=== PATIENT | female | born 2000 | race Caucasian/White ===

== ENCOUNTER 2022-12-13 19:50 | Emergency (ER) | payer MEDICAID, SELFPAY ==
[2022-12-13 20:02] VITALS: BP 140/85; PULSE 105; RESP 18; TEMP 36.8; O2SAT 100; BMI 32.1
--- NOTE | 2022-12-13 20:21 | ED_ITS ---
Documented by User: MISHA Regalado 12/13/22 22:12 HPI - Abdominal Pain General Chief Complaint: Abdominal Pain Stated Complaint: Abdominal Pain Time Seen by Provider: 12/13/22 20:04 Source: patient Mode of arrival: walk-in Limitations: no limitations History of Present Illness HPI narrative: patient is a 22-year-old female to history of irritable bowel syndrome and PCOS who presents to the Emergency Room for left-sided pelvic pain that began today. She states that she is due to start her menstrual period, she has not had any bleeding today. She has had no fevers, vomiting. No urinary symptoms. No flank or back pain. Related Data Home Medications Medication Instructions Recorded Confirmed drospirenone 3 mg-ethinyl tab 12/13/22 estradiol 0.03 mg tablet (Katie) metformin 500 mg tablet,extended mg PO 12/13/22 release 24 hr Allergies Allergy/AdvReac Type Severity Reaction Status Date / Time No Known Drug Allergies Allergy Verified 12/13/22 20:12 Review of Systems ROS Constitutional Denies: fever or chills Cardiovascular Denies: chest pain Respiratory Denies: shortness of breath or cough Gastrointestinal Reports: abdominal pain; Denies: nausea or vomiting Genitourinary Denies: painful urination Musculoskeletal Denies: back pain Integumentary/Breast Denies: rash Endocrine Denies: excessive urination [facility]END[facility] S[facility] TO [facility] Social History Smoking status: Current some day smoker Exam Narrative Exam Narrative: Gen.: Awake, alert, in no distress Head: Normocephalic, atraumatic ENT: Moist mucous membranes Respiratory: No respiratory distress, lungs clear bilaterally Cardio: Regular rate and rhythm Gastrointestinal: Abdomen is soft, nondistended and nontender to palpation; no pain out of proportion on exam Extremities: Moves extremities equally Psych: Normal mood and affect Neuro: No focal neuro deficit Skin: Warm, dry, intact Constitutional Vital Signs, click to edit/add: Last Vital Signs Temp 98.3 F 12/13/22 20:02 Pulse 105 H 12/13/22 20:02 Resp 18 12/13/22 20:02 BP 140/85 12/13/22 20:02 Pulse Ox 100 12/13/22 20:02 O2 Del Method Room Air 12/13/22 20:02 Course Vital Signs Vital signs: Vital Signs Temperature 98.3 F 12/13/22 20:02 Pulse Rate 105 H 12/13/22 20:02 Respiratory Rate 18 12/13/22 20:02 Blood Pressure 140/85 12/13/22 20:02 Pulse Oximetry 100 12/13/22 20:02 Oxygen Delivery Method Room Air 12/13/22 20:02 Temperature 98.3 F 12/13/22 20:02 Pulse Rate 105 H 12/13/22 20:02 Respiratory Rate 18 12/13/22 20:02 Blood Pressure 140/85 12/13/22 20:02 Pulse Oximetry 100 12/13/22 20:02 Oxygen Delivery Method Room Air 12/13/22 20:02 MDM - Abdominal Pain MDM Narrative Medical decision making narrative: patient treated with IV fluids, Toradol, Zofran. Lab studies obtained showing no evidence of significant abnormalities, patient with a small amount of bilirubin in her urine. Ultrasound is unavailable, the patient was sent for CT of the abdomen and pelvis she states this pain is different than her typical PCOS pain. 2200: CT scan results are pending in case is turned over to attending physician for disposition. Medical Records Attestation: I reviewed the patient's medical records. Lab Data Attestation: I reviewed the patient's lab results. Labs: Lab Results 12/13/22 12/13/22 Range/Units 20:20 20:25 WBC 7.9 (4.0-11.0) 10^3/uL RBC 4.74 (4.20-5.40) 10^6/uL Hgb 10.9 L (12.0-16.0) g/dL Hct 35.3 L (36.0-48.0) % MCV 74.5 L (81.0-99.0) fL MCH 23.0 L (26.7-34.0) pg MCHC 30.9 (29.9-35.2) g/dL RDW 16.0 H (11.0-15.0) % Plt Count 200 (150-450) 10^3/uL MPV 11.5 (9.5-13.5) fL Neut % (Auto) 55.9 (43.0-75.0) % Lymph % (Auto) 36.8 (20.5-60.0) % Clare % (Auto) 5.1 (1.7-12.0) % Eos % (Auto) 1.4 (0.9-7.0) % Baso % (Auto) 0.5 (0.2-2.0) % Neut # (Auto) 4.4 (1.4-6.5) 10^3/uL Lymph # (Auto) 2.9 (1.2-3.8) 10^3/uL Clare # (Auto) 0.4 (0.3-0.8) 10^3/uL Eos # (Auto) 0.1 (0.0-0.7) 10^3/uL Baso # (Auto) 0.0 (0.0-0.1) 10^3/uL Abs Immat Gran (auto) 0.02 (0.00-0.03) 10^3/uL Imm/Tot Granulo (auto) 0.3 (0.0-0.5) % Sodium 137 (136-145) mmol/L Potassium 3.3 L (3.5-5.1) mmol/L Chloride 101 (98-107) mmol/L Carbon Dioxide 26.3 (21.0-32.0) mmol/L Anion Gap 13.0 BUN 8.0 (7.0-18.0) mg/dL Creatinine 0.78 (0.55-1.02) mg/dL Est GFR ( Amer) >60 (>=60) Est GFR (Non-Af Amer) >60 (>=60) BUN/Creatinine Ratio 10.3 Glucose 106 (74-106) mg/dL Lactate 1.2 (0.4-2.0) mmol/L Calcium 8.8 (8.5-10.1) mg/dL Total Bilirubin 0.2 (0.2-1.0) mg/dL AST 10 L (15-37) U/L ALT 14 (14-59) U/L Alkaline Phosphatase 63 (46-116) U/L Total Protein 7.3 (6.4-8.2) g/dL Albumin 3.4 (3.4-5.0) g/dL Globulin 3.9 g/dL Albumin/Globulin Ratio 0.9 Lipase 28.0 (16.0-77.0) U/L Serum HCG, Qual Negative (NEGATIVE) Urine Color Yellow (YELLOW) Urine Clarity Clear (CLEAR) Urine pH 6.0 (5.0-9.0) Ur Specific [place] >=1.030 A (1.005-1.025) Urine Protein Negative (NEG/TRACE) mg/dL Urine Glucose (UA) Negative (NEGATIVE) mg/dL Urine Ketones Trace A (NEGATIVE) mg/dL Urine Occult Blood Negative (NEGATIVE) Urine Nitrite Negative (NEGATIVE) Urine Bilirubin Small A (NEGATIVE) Urine Urobilinogen 1.0 (0.2-1.0) EU/dL Ur Leukocyte Esterase Negative (NEGATIVE) Imaging Data CT scan - abdomen: Attestation: I have reviewed the pertinent imaging results. Discharge Plan Discharge Chief Complaint: Abdominal Pain Clinical Impression: Abdominal pain, Constipation Patient Disposition: Home, Self-Care Time of Disposition Decision: 22:57 Prescriptions / Home Meds: No Action metformin 500 mg tablet extended release 24 hr PO drospirenone-ethinyl estradiol [Katie] 3-0.03 mg tablet Instructions: Constipation (ED), Abdominal Pain (ED) Stand Alone Forms: Portal Instructions Referrals: LA NENA MOSELEY [Primary Care Provider] - 1 week Documented by User: Alberto Biswas 12/13/22 22:57 HPI - Abdominal Pain General Chief Complaint: Abdominal Pain Stated Complaint: Abdominal Pain Time Seen by Provider: 12/13/22 20:04 Related Data Home Medications Medication Instructions Recorded Confirmed drospirenone 3 mg-ethinyl tab 12/13/22 estradiol 0.03 mg tablet (Katie) metformin 500 mg tablet,extended mg PO 12/13/22 release 24 hr Allergies Allergy/AdvReac Type Severity Reaction Status Date / Time No Known Drug Allergies Allergy Verified 12/13/22 20:12 PFSH PFSH Social History Smoking status: Current some day smoker Exam Constitutional Vital Signs, click to edit/add: Last Vital Signs Temp 98.3 F 12/13/22 20:02 Pulse 105 H 12/13/22 20:02 Resp 18 12/13/22 20:02 BP 140/85 12/13/22 20:02 Pulse Ox 100 12/13/22 20:02 O2 Del Method Room Air 12/13/22 20:02 Course Vital Signs Vital signs: Vital Signs Temperature 98.3 F 12/13/22 20:02 Pulse Rate 105 H 12/13/22 20:02 Respiratory Rate 18 12/13/22 20:02 Blood Pressure 140/85 12/13/22 20:02 Pulse Oximetry 100 12/13/22 20:02 Oxygen Delivery Method Room Air 12/13/22 20:02 Temperature 98.3 F 12/13/22 20:02 Pulse Rate 105 H 12/13/22 20:02 Respiratory Rate 18 12/13/22 20:02 Blood Pressure 140/85 12/13/22 20:02 Pulse Oximetry 100 12/13/22 20:02 Oxygen Delivery Method Room Air 12/13/22 20:02 MDM - Abdominal Pain MDM Narrative Medical decision making narrative: patient treated with IV fluids, Toradol, Zofran. Lab studies obtained showing no evidence of significant abnormalities, patient with a small amount of bilirubin in her urine. Ultrasound is unavailable, the patient was sent for CT of the abdomen and pelvis she states this pain is different than her typical PCOS pain. 2200: CT scan results are pending in case is turned over to attending physician for disposition. CT shows retained stool but no other findings to account for the patient's symptoms, per radiologist. Patient and family informed of results, diagnosis discuss and they were given reassurance. Lab Data Labs: Lab Results 12/13/22 12/13/22 Range/Units 20:20 20:25 WBC 7.9 (4.0-11.0) 10^3/uL RBC 4.74 (4.20-5.40) 10^6/uL Hgb 10.9 L (12.0-16.0) g/dL Hct 35.3 L (36.0-48.0) % MCV 74.5 L (81.0-99.0) fL MCH 23.0 L (26.7-34.0) pg MCHC 30.9 (29.9-35.2) g/dL RDW 16.0 H (11.0-15.0) % Plt Count 200 (150-450) 10^3/uL MPV 11.5 (9.5-13.5) fL Neut % (Auto) 55.9 (43.0-75.0) % Lymph % (Auto) 36.8 (20.5-60.0) % Clare % (Auto) 5.1 (1.7-12.0) % Eos % (Auto) 1.4 (0.9-7.0) % Baso % (Auto) 0.5 (0.2-2.0) % Neut # (Auto) 4.4 (1.4-6.5) 10^3/uL Lymph # (Auto) 2.9 (1.2-3.8) 10^3/uL Clare # (Auto) 0.4 (0.3-0.8) 10^3/uL Eos # (Auto) 0.1 (0.0-0.7) 10^3/uL Baso # (Auto) 0.0 (0.0-0.1) 10^3/uL Abs Immat Gran (auto) 0.02 (0.00-0.03) 10^3/uL Imm/Tot Granulo (auto) 0.3 (0.0-0.5) % Sodium 137 (136-145) mmol/L Potassium 3.3 L (3.5-5.1) mmol/L Chloride 101 (98-107) mmol/L Carbon Dioxide 26.3 (21.0-32.0) mmol/L Anion Gap 13.0 BUN 8.0 (7.0-18.0) mg/dL Creatinine 0.78 (0.55-1.02) mg/dL Est GFR ( Amer) >60 (>=60) Est GFR (Non-Af Amer) >60 (>=60) BUN/Creatinine Ratio 10.3 Glucose 106 (74-106) mg/dL Lactate 1.2 (0.4-2.0) mmol/L Calcium 8.8 (8.5-10.1) mg/dL Total Bilirubin 0.2 (0.2-1.0) mg/dL AST 10 L (15-37) U/L ALT 14 (14-59) U/L Alkaline Phosphatase 63 (46-116) U/L Total Protein 7.3 (6.4-8.2) g/dL Albumin 3.4 (3.4-5.0) g/dL Globulin 3.9 g/dL Albumin/Globulin Ratio 0.9 Lipase 28.0 (16.0-77.0) U/L Serum HCG, Qual Negative (NEGATIVE) Urine Color Yellow (YELLOW) Urine Clarity Clear (CLEAR) Urine pH 6.0 (5.0-9.0) Ur Specific [place] >=1.030 A (1.005-1.025) Urine Protein Negative (NEG/TRACE) mg/dL Urine Glucose (UA) Negative (NEGATIVE) mg/dL Urine Ketones Trace A (NEGATIVE) mg/dL Urine Occult Blood Negative (NEGATIVE) Urine Nitrite Negative (NEGATIVE) Urine Bilirubin Small A (NEGATIVE) Urine Urobilinogen 1.0 (0.2-1.0) EU/dL Ur Leukocyte Esterase Negative (NEGATIVE) Imaging Data CT scan - abdomen: Radiologist's impression: Patient Name: HALLE MARTINS MRN: [facility]:[id number] date: 2000 Sex: F Assigned Patient Location: ER Current Patient Location: ED.MAIN Accession/Order Number: [id number] Exam Date: 12/13/2022 21:37 Report Date: 12/13/2022 22:10 At the request of: FRANDY YAN Procedure: CT abdomen pelvis w con EXAMINATION: CT ABDOMEN AND PELVIS WITH IV CONTRAST CLINICAL HISTORY: Abdominal pain TECHNIQUE: CT of the abdomen and pelvis was performed using standard technique, scanning from just above the dome of the diaphragm to the symphysis pubis. All CT scans at this facility use dose modulation, iterative reconstruction, and/or weight based dosing when appropriate to reduce radiation dose to as low as reasonably achievable. Contrast: IV: 100 ml of Omnipaque 300 COMPARISON: CT abdomen and pelvis 06/03/2020 RESULT: Liver: No mass. Biliary: No bile duct dilation. Gallbladder is unremarkable. Spleen: No mass. No splenomegaly. Pancreas: No mass or duct dilation. Adrenals: No mass. Kidneys: No mass, calculus or hydronephrosis. GI tract: No dilation or wall thickening. Moderate colonic stool. Appendix is unremarkable. Lymph nodes: No abdominal or pelvic lymphadenopathy. Mesentery/Peritoneum: No ascites or mass. Retroperitoneum: No mass. Vasculature: The celiac axis and SMA are patent. The portal vein and branches, splenic vein, SMV, and hepatic veins are patent. No abdominal aortic aneurysm. Pelvis: No mass, ascites or fluid collection. Urinary bladder is unremarkable. Bones/Soft Tissues: No significant finding. Lower thorax: Unremarkable. IMPRESSION: No acute findings in the abdomen and pelvis. Moderate colonic stool. Electronically authenticated by: MICHAEL CHATTERJEE Date: 12/13/2022 22:10 Discharge Plan Discharge Chief Complaint: Abdominal Pain Clinical Impression: Abdominal pain, Constipation Patient Disposition: Home, Self-Care Time of Disposition Decision: 22:57 Prescriptions / Home Meds: No Action metformin 500 mg tablet extended release 24 hr PO drospirenone-ethinyl estradiol [Katie] 3-0.03 mg tablet Instructions: Constipation (ED), Abdominal Pain (ED) Stand Alone Forms: Portal Instructions Referrals: LA NENA MOSELEY [Primary Care Provider] - 1 week
[2022-12-13 20:51] LABS: Basophils Percent Auto 0.5 % (0.2-2.0); Eosinophils Absolute Auto 0.1 10^3/uL (0.0-0.7); Eosinophils Percent Auto 1.4 % (0.9-7.0); Hematocrit 35.3 % (36.0-48.0); Hemoglobin 10.9 g/dL (12.0-16.0); Immature Granulocytes Abs Auto 0.02 10^3/uL (0.00-0.03); Immature Granulocytes Pct Auto 0.3 % (0.0-0.5); Lymphocytes Absolute Auto 2.9 10^3/uL (1.2-3.8); Lymphocytes Percent Auto 36.8 % (20.5-60.0); Mean Corpuscular HGB Conc 30.9 g/dL (29.9-35.2); Mean Corpuscular Volume 74.5 fL (81.0-99.0); Mean Platelet Volume 11.5 fL (9.5-13.5); Monocytes Absolute Auto 0.4 10^3/uL (0.3-0.8); Monocytes Percent Auto 5.1 % (1.7-12.0); Neutrophils Absolute Auto 4.4 10^3/uL (1.4-6.5); Neutrophils Percent Auto 55.9 % (43.0-75.0); Platelet Count 200 10^3/uL (150-450); Red Blood Count 4.74 10^6/uL (4.20-5.40); White Blood Count 7.9 10^3/uL (4.0-11.0)
[2022-12-13 20:54] LABS: HCG Qualitative NEGATIVE (NEGATIVE)
[2022-12-13 20:56] LABS: Alanine Aminotransferase 14 U/L (14-59); Albumin Globulin Ratio 0.9; Albumin Level 3.4 g/dL (3.4-5.0); Alkaline Phosphatase 63 U/L (46-116); Aspartate Amino Transferase 10 U/L (15-37); BUN Creatinine Ratio 10.3; Bilirubin Total 0.2 mg/dL (0.2-1.0); Calcium 8.8 mg/dL (8.5-10.1); Carbon Dioxide 26.3 mmol/L (21.0-32.0); Chloride 101 mmol/L (98-107); Estimated GFR (African America >60 (>=60); Estimated GFR (Non-African Ame >60 (>=60); Globulin 3.9 g/dL; Glucose 106 mg/dL (74-106); Potassium 3.3 mmol/L (3.5-5.1); Sodium 137 mmol/L (136-145); Total Protein 7.3 g/dL (6.4-8.2)
[2022-12-13 20:58] LABS: Lactate/Lactic Acid 1.2 mmol/L (0.4-2.0)
[2022-12-13 20:58] LABS: Bilirubin Urine SMALL (NEGATIVE); Blood Urine NEGATIVE (NEGATIVE); Clarity Urine CLEAR (CLEAR); Color Urine YELLOW (YELLOW); Glucose Urine UA NEGATIVE (NEGATIVE); Ketones Urine TRACE mg/dL (NEGATIVE); Leukocyte Esterase Urine NEGATIVE (NEGATIVE); Nitrite Urine NEGATIVE (NEGATIVE); Protein Urine NEGATIVE (NEG/TRACE); Specific Gravity Urine >=1.030 (1.005-1.025)
[2022-12-13 21:00] LABS: Urine Microscopic Indicated NO
[2022-12-13] MEDS: 0.9 % SODIUM CHLORIDE 1,000 ML 999 ML IV (21:53)
[2022-12-13] MEDS: KETOROLAC TROMETHAMINE 30 MG/ML VIAL IVP (21:53)
[2022-12-13] MEDS: ONDANSETRON PF 4 MG/2 ML VIAL IV (21:53)
== END 2022-12-13 23:41 | disposition home or self-care (01) ==
PROVIDERS: Physician Assistant; Emergency Provider Emergency Medicine; PCP Family Medicine
DX: R10.9 Unspecified abdominal pain (principal); K59.00 Constipation, unspecified; K58.9 Irritable bowel syndrome, unspecified; E28.2 Polycystic ovarian syndrome; Z79.899 Other long term (current) drug therapy; Z79.84 Long term (current) use of oral hypoglycemic drugs; F17.210 Nicotine dependence, cigarettes, uncomplicated
CPT/HCPCS: 36415; 74177; 80053; 81003; 83605; 83690; 84703; 85025; 96374; 96375; 99285; Q9967

== ENCOUNTER 2023-02-01 22:32 | Emergency (ER) | payer MEDICAID, SELFPAY ==
[2023-02-01 22:36] VITALS: BP 145/94; PULSE 87; RESP 16; TEMP 36.7; O2SAT 99; BMI 31.2
--- NOTE | 2023-02-01 23:11 | ED.EAR1 ---
HPI - Ear Problem General Chief complaint: Ear Stated complaint: Bilateral Ear Pain Time Seen by Provider: 02/01/23 22:43 Source: patient Mode of arrival: walk-in Limitations: no limitations History of Present Illness HPI Narrative: bilateral ear pain since 01/27/23. Took aleve a ferw times for the pain, which is now in both ears. Mild sore throat. No fever or cough. Related Data Home Medications Medication Instructions Recorded Confirmed drospirenone 3 mg-ethinyl 1 tab PO DAILY 12/13/22 02/01/23 estradiol 0.03 mg tablet (Katie) metformin 500 mg tablet,extended 500 mg PO DAILY 12/13/22 02/01/23 release 24 hr Previous Rx's Medication Instructions Recorded amoxicillin 875 mg-potassium 1 tab PO Q12H #14 tabs 02/01/23 clavulanate 125 mg tablet Allergies Allergy/AdvReac Type Severity Reaction Status Date / Time No Known Drug Allergies Allergy Verified 02/01/23 22:38 PFSH PFS Social History Smoking status: Current every day smoker Exam Narrative Exam Narrative: Nurses notes and vital signs reviewed and patient is not hypoxic. afebrile General: Well-appearing and in no apparent distress. Skin: Warm, dry, no pallor noted. No rash. Head: Normocephalic, atraumatic. Neck: Supple, non-tender. No cervical lymphadenopathy Eye: Pupils are equal, round and EOMI. No scleral icterus. Ears, Nose, Mouth, and Throat: TM erythematous with injection bilaterally, no nasal mucosal hypertrophy. Oral mucosa is moist, no posterior oropharynx erythema, uvula is mid-line Cardiovascular: Regular Rate and Rhythm without murmur, gallop or rub. Respiratory: No accessory muscle use or respiratory distress. Lungs are clear to auscultation, no wheezing, rales or rhonchi Neurological: A&O x4. No cranial nerve dysfunction observed. No truncal ataxia. Moves all extremities. Sensation intact. Psychiatric: Cooperative and interactive. Normal mood and affect. Constitutional Vital Signs, click to edit/add: Last Vital Signs Temp 98.0 F 02/01/23 22:36 Pulse 87 02/01/23 22:36 Resp 16 02/01/23 22:36 BP 145/94 H 02/01/23 22:36 Pulse Ox 99 02/01/23 22:36 O2 Del Method Room Air 02/01/23 22:36 Course Vital Signs Vital signs: Vital Signs Temperature 98.0 F 02/01/23 22:36 Pulse Rate 87 02/01/23 22:36 Respiratory Rate 16 02/01/23 22:36 Blood Pressure 145/94 H 02/01/23 22:36 Pulse Oximetry 99 02/01/23 22:36 Oxygen Delivery Method Room Air 02/01/23 22:36 Temperature 98.0 F 02/01/23 22:36 Pulse Rate 87 02/01/23 22:36 Respiratory Rate 16 02/01/23 22:36 Blood Pressure 145/94 H 02/01/23 22:36 Pulse Oximetry 99 02/01/23 22:36 Oxygen Delivery Method Room Air 02/01/23 22:36 Medical Decision Making MDM Narrative Medical decision making narrative: patient dc'd home with prescription for antibiotic for her otitis media and recommendation to take otc pain meds for relief. Discharge Plan Discharge Chief Complaint: Ear Clinical Impression: Otitis media Patient Disposition: Home, Self-Care Time of Disposition Decision: 23:19 Prescriptions / Home Meds: New amoxicillin-pot clavulanate 875-125 mg tablet 1 tab PO Q12H Qty: 14 0RF No Action metformin 500 mg tablet extended release 24 hr 500 mg PO DAILY drospirenone-ethinyl estradiol [Katie] 3-0.03 mg tablet 1 tab PO DAILY Instructions: Ear Infection (ED) Stand Alone Forms: Portal Instructions Referrals: LA NENA MOSELEY [Primary Care Provider] - 1 week
== END 2023-02-01 23:32 | disposition home or self-care (01) ==
PROVIDERS: Emergency Provider Emergency Medicine; PCP Family Medicine
DX: H66.93 Otitis media, unspecified, bilateral (principal); Z79.899 Other long term (current) drug therapy; Z79.84 Long term (current) use of oral hypoglycemic drugs; F17.210 Nicotine dependence, cigarettes, uncomplicated
CPT/HCPCS: 99283

== ENCOUNTER 2023-05-31 21:43 | Emergency (ER) | payer MEDICAID, SELFPAY ==
--- OUTSIDE RECORDS SUMMARY | 2023-05-31 22:08 | XMS_ITS | CCD ---
Author Organization [facility] Care Team Providers Care Pta Name Role Phone KARON, DR BRODY Penaloza Admitting Unavailable KARON, DR BRODY Penaloza Consulting Unavailable KARON, DR BRODY Penaloza Attending Unavailable LORELEI, DR DEUTSCH Primary Care Unavailable DARYA ., DR WATT Admitting Unavailable DARYA ., DR WATT Attending [facility] Yesy Lopez Consulting Unavailable LORELEI, DR DEUTSCH Primary Care Unavailable DARYA ., DR WATT Consulting Unavailable Erwin Rhea Unavailable SHUKRI LACKEY Attending Unavailable Medications Current Medications Medication Drug Class(es) Dates Sig (Normalized) Sig (Original) hydrocortisone 10 mg/ml / neomycin 3.5 mg/ml / polymyxin b 03711 unt/ml otic solution (1 source) Aminoglycoside Antibacterial, Polymyxin-class Antibacterial, Corticosteroid Start: 03-20-2022 Neomycin-Polymyx in-HC 3.5-14970-8 4 drops into affected ear Otic Three times a day for 7 day(s) Feb, Active Completed/Discontinued Medications Medication Drug Class(es) Dates Sig (Normalized) Sig (Original) amoxicillin 875 mg oral tablet (1 source) Penicillin-class Antibacterial Start: 03-02-19 21 take 1 tablet by mouth every twelve hours Amoxicillin 875 MG 1 tablet Orally every 12 hrs for 7 days Feb, Not-Taking benzocaine 15 mg / menthol 2.6 mg oral lozenge (1 source) Standardized Chemical Allergen Start: 03-02-19 21 Cepacol Extra Strength 15-2.6 MG as directed Mouth/Throat every 4 hours Feb, Not-Taking carbamide peroxide 65 mg/ml otic solution (1 source) Start: 04-09-19 20 Debrox 6.5 % 2 drops into affected ear Otic once a week Mar, Not-Taking medroxyPROGESTERone (2 sources) Progestin medroxyPROGESTER one Acetate 150 MG/ML Intramuscular for 84 Not-Taking Depo-Provera Not -Taking naproxen 500 mg oral tablet (1 source) Nonsteroidal Anti-inflammatory Drug Start: 10-25-2020 take 1 tablet by mouth every twelve hours at mealtime as needed Naproxen 500 MG 1 tablet with food or milk as needed Orally every 12 hrs for 10 days Sep, Not-Taking Problems Problem Classification Problem Date Documented Da te Episodic/Chronic Nausea and vomiting (4 sources) Nausea with vomiting, unspecified; Translations: [NAUSEA WITH VOMITING UNSPECIFIED] Onset: 04-22-2022 Episodic Other aftercare (1 source) 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; Translations: [SUPPORT DBA USE ORAL HYPOGLYCEMIC DX] Onset: 04-25-2022 Episodic Other aftercare (1 source) correction (current) use of hormonal contraceptives; Translations: [CUSTODIAL HORMONAL CONTRACEPTIVES] Onset: 04-25-2022 Episodic Other ear and sense organ disorders (1 source) Impacted cerumen, left ear Episodic Other endocrine disorders (4 sources) Polycystic ovarian syndrome; Translations: [POLYCYSTIC OVARIAN SYNDROME] Onset: 06-01-2021 Chronic Other gastrointestinal disorders (1 source) Irritable bowel syndrome without diarrhea; Translations: [IRRITABLE BOWEL SYND W/O DIARRHEA] Onset: 04-25-2022 Chronic Substance-related disorders (1 source) Nicotine dependence, cigarettes, uncomplicated; Translations: [NICOTINE DEPEND CIGARETTES UNCOMP] Onset: 04-25-2022 Chronic Results Test Name Value Interpretation Reference Range Facil ity AMYLASEon 04-22-2022 Amylase [Catalytic activity/Vol] 34 U/L Normal 25-115 [facility] Comment on above: Performed By: #### A MY, LIPA #### [facility] [address] [address] [address] Estephania Funez CBC AUTO DIFFon 04-22-2022 BASO # 0.0 103/ul Normal 0.0-0.1 [facility] Comment on above: Performed By: #### C BC #### [facility] [address] [address] [address] Estephania Funez Basophils/100 WBC (Bld) 0.3 % Normal 0.2-2.0 [facility] Comment on above: Performed By: #### C BC #### [facility] [address] [place] [address] Dr. Estephania Funez EO # 0.1 103/ul Normal 0.0-0.7 [facility] Comment on above: Performed By: #### C BC #### [facility] [address] [place] [address] Dr. Estephania Funez Eosinophils/100 WBC (Bld) 0.7 % Critically low 0.9-7.0 [facility] Comment on above: Performed By: #### C BC #### [facility] [address] [place] [address] Dr. Estephania Funez Erythrocyte distribution width (RBC) [Ratio] 16.0 % Critically high 11.0-15.0 [facility] Comment on above: Performed By: #### C BC #### [facility] [address] [place] [address] Dr. Estephania Funez Hematocrit (Bld) [Volume fraction] 35.5 % Critically low 36.0-48.0 [facility] Comment on above: Performed By: #### C BC #### [facility] [address] [place] [address] Dr. Estephania Funez Hemoglobin (Bld) [Mass/Vol] 11.1 g/dL Critically low 12.0-16.0 [facility] Comment on above: Performed By: #### C BC #### [facility] [address] [place] [address] Dr. Estephania Funez IG # 0.01 10e3/ul Normal 0.00-0.03 [facility] Comment on above: Performed By: #### C BC #### [facility] [address] [place] [address] Dr. Estephania Funez IG % 0.1 % Normal 0.0-0.5 [facility] Comment on above: Performed By: #### C BC #### [facility] [address] [place] [address] Dr. Estephania Funez LYMPH # 1.7 103/ul Normal 1.2-3.8 [facility] Comment on above: Performed By: #### C BC #### [facility] [address] [address] [address] Estephania Funez Lymphocytes/100 WBC (Bld) 23.9 % Normal 20.5-60.0 [facility] Comment on above: Performed By: #### C BC #### [facility] [address] [place] [address] Dr. Estephania Funez MANUAL DIFF REQ NO Normal [facility] Comment on above: Performed By: #### C BC #### [facility] [address] [address] [address] Estephania Funez MCH (RBC) [Entitic mass] 22.3 pg Critically low 26.7-34.0 [facility] Comment on above: Performed By: #### C BC #### [facility] [address] [place] [address] Dr. Estephania Funez MCHC (RBC) [Mass/Vol] 31.3 g/dL Normal 29.9-35.2 [facility] Comment on above: Performed By: #### C BC #### [facility] [address] [place] [address] Dr. Estephania Funez MCV (RBC) [Entitic vol] 71.4 fL Critically low 81.0-99.0 [facility] Comment on above: Performed By: #### C BC #### [facility] [address] [place] [address] Dr. Estephania Funez MONO # 0.4 103/ul Normal 0.3-0.8 [facility] Comment on above: Performed By: #### C BC #### [facility] [address] [place] [address] Dr. Estephania Funez Monocytes/100 WBC (Bld) 6.2 % Normal 1.7-12.0 [facility] Comment on above: Performed By: #### C BC #### [facility] [address] [place] [address] Dr. Estephania Funez NEUT # 4.9 103/ul Normal 1.4-6.5 [facility] Comment on above: Performed By: #### C BC #### [facility] [address] [place] [address] Dr. Estephania Funez Neutrophils/100 WBC (Bld) 68.8 % Normal 43.0-75.0 [facility] Comment on above: Performed By: #### C BC #### [facility] [address] [place] [address] Dr. Estephania Funez Platelet mean volume (Bld) [Entitic vol] 11.9 fL Normal 9.5-13.5 [facility] Comment on above: Performed By: #### C BC #### [facility] [address] [place] [address] Dr. Estephania Funez PLT 228 103/ul Normal 150-450 [facility] Comment on above: Performed By: #### C BC #### [facility] [address] [place] [address] Dr. Estephania Funez RBC 4.97 106/ul Normal 4.20-5.40 [facility] Comment on above: Performed By: #### C BC #### [facility] [address] [place] [address] Dr. Estephania Funez WBC 7.1 103/ul Normal 4.0-11.0 [facility] Comment on above: Performed By: #### C BC #### [facility] [address] [place] [address] Dr. Estephania Funez ER URINE PROFILEon 3 Bilirubin Ql (U) Negative Normal NEGATIVE [facility] Comment on above: Performed By: #### E RUR, PREGU #### [facility] [address] [place] [address] Dr. Estephania Funez Clarity (U) CLEAR Normal CLEAR [facility] Comment on above: Performed By: #### E RUR, PREGU #### [facility] [address] [place] [address] Dr. Estephania Funez Color (U) YELLOW Normal YELLOW [facility] Comment on above: Performed By: #### E RUR, PREGU #### [facility] [address] [place] [address] Dr. Estephania YEBOAH A micrscopic examination will be performed if indicated. Normal [facility] Comment on above: Performed By: #### E RUR, PREGU #### [facility] [address] [place] [address] Dr. Estephania Funez Glucose Ql (U) Negative Normal NEGATIVE [facility] Comment on above: Performed By: #### E RUR, PREGU #### [facility] [address] [place] [address] Dr. Estephania Funez Hemoglobin Ql (U) Negative Normal NEGATIVE [facility] Comment on above: Performed By: #### E RUR, PREGU #### [facility] [address] [place] [address] Dr. Estephania Funez Ketones Ql (U) Negative Normal NEGATIVE [facility] Comment on above: Performed By: #### E RUR, PREGU #### [facility] [address] [place] [address] Dr. Estephania Funez LEUKOCYTES Negative Normal NEGATIVE [facility] Comment on above: Performed By: #### E RUR, PREGU #### [facility] [address] [place] [address] Dr. Estephania Funez Nitrite Ql (U) Negative Normal NEGATIVE [facility] Comment on above: Performed By: #### E RUR, PREGU #### [facility] [address] [place] [address] Dr. Estephania Funez pH (U) 6.0 [pH] Normal 5-9 [facility] Comment on above: Performed By: #### E RUR, PREGU #### [facility] [address] [place] [address] Dr. Estephania Funez SPEC GRAVITY >=1.030 Abnormal 1.005-<=1.025 [facility] Comment on above: Performed By: #### E RUR, PREGU #### [facility] [address] [place] [address] Dr. Estephania Funez UA PROTEIN TRACE Normal NEGATIVE/ TRACE [facility] Comment on above: Performed By: #### E RUR, PREGU #### [facility] [address] [place] [address] Dr. Estephania Funez UR MICRO IND NOT INDICATED Normal [facility] Comment on above: Performed By: #### E RUR, PREGU #### [facility] [address] [place] [address] Dr. Estephania Funez Urobilinogen Qn (U) 1.0 {Gini'U}/dL Normal 0.2 - 1.0 [facility] Comment on above: Performed By: #### E RUR, PREGU #### [facility] [address] [place] [address] Dr. Estephania Funez LIPASEon 04-22-2022 Lipase [Catalytic activity/Vol] 84.0 U/L Normal 73.0-393.0 [facility] Comment on above: Performed By: #### A MY, LIPA #### [facility] [address] [place] [address] Dr. Estephania Funez URon 04-22-2022 , QUAL Negative Normal NEGATIVE [facility] Comment on above: Performed By: #### E MARINOR, PREGU #### [facility] [address] [place] [address] Dr. Estephania Funez PROF 14(COMP METB)on 023 Albumin [Mass/Vol] 3.3 g/dL Critically low 3.4-5.0 [facility] Comment on above: Performed By: #### C MP #### [facility] [address] [place] [address] Dr. Estephania Funez Albumin/Globulin [Mass ratio] 0.8 {ratio} Normal [facility] Comment on above: Performed By: #### C MP #### [facility] [address] [place] [address] Dr. Estephania Funez ALP [Catalytic activity/Vol] 60 U/L Normal 46-116 [facility] Comment on above: Performed By: #### C MP #### [facility] [address] [place] [address] Dr. Estephania Funez ALT [Catalytic activity/Vol] 16 U/L Normal 14-59 [facility] Comment on above: Performed By: #### C MP #### [facility] [address] [address] [address] Estephania Funez Anion gap [Moles/Vol] 14.1 mmol/L Normal [facility] Comment on above: Performed By: #### C MP #### [facility] [address] [address] [address] Estephania Funez AST [Catalytic activity/Vol] 13 U/L Critically low 15-37 [facility] Comment on above: Performed By: #### C MP #### [facility] [address] [address] [address] Estephania Funez Bilirubin [Mass/Vol] 0.3 mg/dL Normal 0.2-1.0 [facility] Comment on above: Performed By: #### C MP #### [facility] [address] [address] [address] Estephania Funez Calcium [Mass/Vol] 9.1 mg/dL Normal 8.5-10.1 [facility] Comment on above: Performed By: #### C MP #### [facility] [address] [address] [address] Estephania Funez Chloride [Moles/Vol] 103 mmol/L Normal 98-107 [facility] Comment on above: Performed By: #### C MP #### [facility] [address] [address] [address] Estephania Funez CO2 [Moles/Vol] 24.7 mmol/L Normal 21.0-32.0 [facility] Comment on above: Performed By: #### C MP #### [facility] [address] [address] [address] Estephania Funez Creatinine [Mass/Vol] 0.64 mg/dL Normal 0.55-1.02 [facility] Comment on above: Performed By: #### C MP #### [facility] [address] [address] [address] Estephania Funez EGFR-AF BHUTANESE >60 Normal >=60 [facility] Comment on above: Performed By: #### C MP #### [facility] [address] [address] [address] Estephania Funez EGFR-NON AF BHUTANESE >60 Normal >=60 [facility] Comment on above: Performed By: #### C MP #### [facility] [address] [address] [address] Estephania Funez Globulin (S) [Mass/Vol] 3.9 g/dL Normal [facility] Comment on above: Performed By: #### C MP #### [facility] [address] [address] [address] Estephania Funez Glucose [Mass/Vol] 101 mg/dL Normal 74-106 [facility] Comment on above: Performed By: #### C MP #### [facility] [address] [address] [address] Estephania Funez Potassium [Moles/Vol] 3.8 mmol/L Normal 3.5-5.1 [facility] Comment on above: Performed By: #### C MP #### [facility] [address] [place] [address] Dr. Estephania Funez Protein [Mass/Vol] 7.2 g/dL Normal 6.4-8.2 [facility] Comment on above: Performed By: #### C MP #### [facility] [address] [place] [address] Dr. Estephania Funez Sodium [Moles/Vol] 138 mmol/L Normal 136-145 [facility] Comment on above: Performed By: #### C MP #### [facility] [address] [address] [address] Estephania Funez Urea nitrogen [Mass/Vol] 11.0 mg/dL Normal 6.4-19.3 [facility] Comment on above: Performed By: #### C MP #### [facility] [address] [place] [address] Dr. Estephania Funez Urea nitrogen/Creatinin e [Mass ratio] 17.2 mg/mg Normal [facility] Comment on above: Performed By: #### C MP #### [facility] [address] [place] [address] Dr. Estephania Funez US PELVIS AND TRANSVAGon US PELVIS AND TRANSVAG EXAMINATION: US PELVIS AND TRANSVAG HISTORY: Polycystic ovary syndrome COMPARISON: 06/24/2019 FINDINGS: Transabdominal and transvaginal images The uterus measures 4.4 x 2.5 x 4.3 cm. The endometrium measures 1.4 cm thick The right ovary measures 3.5 x 1.8 x 3.1 cm. Multiple areas of anechoic echogenicity scattered throughout the ovary. Normal color and Doppler flow. PSV/EDV: 10.0/5.0 cm/s. Normal resistive index of 0.51. The left ovary measures 3.4 x 2.3 x 3.6 cm. Multiple areas of anechoic echogenicity with a peripheral distribution. Normal color and Doppler flow. PSV/EDV: 10.0/3.3 cm/s. Normal resistive index of 0.67. No free fluid. IMPRESSION: Multiple bilateral follicles, these are peripherally distributed in the left ovary, consider polycystic ovarian syndrome Prominent endometrium, correlate with the menstrual cycle Electronically authenticated by: YESY LOPEZ Date: 2021-06-01 10:03 Normal [facility] XR knee LT 4V*on 10-25-2020 XR knee LT 4V* [facility] [place] [address] [place] [address] XRay Report Signed Patient: Doreen Martins MR#: [id number] : 2000 Acct:[id number] Age/Sex: 20 / F ADM Date: 10/25/20 Loc: XDUCLY Room: Type: [facility] Attending Dr: Rhea RIVERA Ordering Provider: RHEA RIVER Date of Service: 10/25/20 XR/XR knee LT 4V*: Acute pain of left knee Copies to: RHEA RIVER 4 views LEFT knee plain film COMPARISON:None HISTORY:LEFT knee pain for one week. No fracture, dislocation or focal soft tissue abnormality seen. XR/XR knee LT 4V* IMPRESSION:No acute findings Impression dictated by: Sonny Luz M.D.10/25/2020 5:30 PM Dictation Location: [facility] Transcribed By: [facility] 10/25/20 173 Dictated By: Sonny Luz DO 10/25/20 172 Signed By: 10/25/[address] [facility] XR finger RT 4th digiton XR finger RT 4th digit [facility] [place] [address] XRay Report Signed Patient: Doreen Martins MR#: [id number] : 2000 Acct:[id number] Age/Sex: 20 / F ADM Date: 08/13/20 Loc: XDUCLY Room: Type: [facility] Attending Dr: Rhea RIVERA Ordering Provider: RHEA RIVER Date of Service: 08/13/20 XR/XR finger RT 4th digit: Injury of finger of right hand, initial encounter Copies to: RHEA RIVER XR finger RT 4th digit 08/13/2020 2:15 PM SIGNS AND SYMPTOMS: Injury of finger of right hand, pain along the ring finger PROTOCOL: Frontal, lateral, and oblique radiographs of the right hand and fourth digit COMPARISON: None FINDINGS: There is mild diffuse soft tissue swelling of the fourth digit. There is an obliquely oriented cortical lucency along the ulnar aspect of the base of the middle phalanx communicating with the proximal interphalangeal joint suggesting a minimally displaced fracture. This is only seen on AP view however. There is no dislocation or subluxation. No additional fractures are noted. XR/XR finger RT 4th digit IMPRESSION: There is an obliquely oriented cortical lucency along the ulnar aspect of the base of the middle phalanx communicating with the proximal interphalangeal joint suggesting a minimally displaced fracture. This is only seen on AP view however. There is mild diffuse soft tissue swelling. Impression dictated by: Brody Bronson M.D.08/13/2020 2:44 PM Dictation Location: [facility]04 Transcribed By: TERE 08/13/20 1444 Dictated By: Brody Bronson II, MD 08/13/20 1442 Signed By: 08/13/[address] [facility] Vital Signs Date Time Vital Sign Value Performing Clinician Facility 03-20-2022 15:25-0500 Body height 167.64 cm Rhea River Other [facility] 03-20-2022 15:25-0500 Body mass index (BMI) [Ratio] 36.31 kg/m2 Rhea Kingault Other [facility] 03-20-2022 15:25-0500 Body temperature 98.3 [degF] Rhea River Other [facility] 03-20-2022 15:25-0500 Body weight 102.06 kg Rhea River Other [facility] 03-20-2022 15:25-0500 Diastolic blood pressure 92 mm[Hg] Rhea Kingault Other [facility] 03-20-2022 15:25-0500 Respiratory rate 18 /min Rhea River Other [facility] 03-20-2022 15:25-0500 SaO2% (BldA) [Mass fraction] 98 % Rhea Kingault [facility] 03-20-2022 15:25-0500 Systolic blood pressure 143 mm[Hg] Rhea Kingault Other [facility] Encounters Encounter Date Encounter Type Care Provider Facility Start: 03-20-2023 End: 03-20-2023 ambulatory SHUKRI LACKEY Not Available Start: 04-22-2022 End: 04-22-[address] BRODY BRANTLEY Facility: Start: 03-20-2022 End: 03-20-2022 ambulatory Rhea River Other [facility] Start: 03-20-2022 Office outpatient visit 15 minutes Rhea River [facility] Start: 06-01-2021 End: 06-02-[address] SHUKRI LACKEY . Facility: Payers Date Payer Category Payer Medicaid [id number] 2000 Unknown [id number] 2000 Unknown [id number] 2002 Unknown [id number] 1959 Unknown [id number] Social History Date Type Detail Facility Unknown if ever smoked [facility] Other Sex Assigned At Sex Assigned At Bir th [facility] Evaluation note 03-20-2022 Note Date & Type Note Facility 03-20-2022 Evaluation note Encounter Date Diagnosis Assessment Notes Feb, Impacted cerumen, left ear (ICD-10 - H61.22) Ear wax removal completed in office today. Recommend Debrox ear drops as directed in box to prevent future impaction as well as refraining from using Q-tips or other objects to clear out ears. Follow up with PCP or ENT if no improvement of symptoms or symptom return [facility] Other History general Narrative - Reported Note Date & Type Note Facility History general Narrative - Reported Type Medical History Scoliosis Medical History ADHD Surgical History tonsillectomy and adenoidectomy Surgical History Foot Surgery b/l [facility] Other Summary Purpose Family History No Family History Records FoundNo Family History Records FoundNo Family History Records Found Advance Directives No Advanced Directives Records FoundNo Advanced Directives Records FoundNo Advanced Directives Records Found Additional Source Comments INFORMATION SOURCE (unrecogn ized section and content) DATE CREATED AUTHOR 03/19/2021 [facility] DATE CREATED AUTHOR AUTHOR'S ORGANIZ ATION 04/26/2022 [facility] DATE CREATED AUTHOR AUTHOR'S ORGANIZ ATION 03/21/2023 [facility] EPIC REASON FOR VISIT (unrecogniz ed section and content) EARS ARE PLUGGED FOR RECORDS PERTAINING TO PATIENTS WHO ARE OR HAVE BEEN ENROLLED IN A CHEMICAL DEPENDENCY/SUBSTANCEABUSE PROGRAM, SOME INFORMATION MAY BE OMITTED. This clinical summary was aggregated from multiple sources. Caution should be exercised in using it in the provision of clinical care. This summary normalizes information from multiple sources, and as a consequence, information in this document may materially change the coding, format and clinical context of patient data. In addition, data may be omitted in some cases. CLINICAL DECISIONS SHOULD BE BASED ON THE PRIMARY CLINICAL RECORDS. [email or web address] provides no warranty or guarantee of the accuracy or completeness of information in this document.
[2023-05-31 22:24] VITALS: BP 146/94; PULSE 83; TEMP 36.9; O2SAT 100; BMI 30.5
--- NOTE | 2023-05-31 23:11 | ECG_ITS ---
[facility] [place] Test Date: 2023-05-31 Pat Name: HALLE MARTINS Department: Room: - Gender: Female Manager School: : 2000 Requested By: CRISTIAN NOVA Order Number: [id number] Reading MD: CRISTIAN NOVA Measurements Intervals [place] Rate: 80 P: 70 GA: 132 QRS: 91 QRSD: 86 T: 60 QT: 354 QTc: 389 Interpretive Statements 1100 Sinus rhythm 7102 Moderate right axis deviation 9110 normal ECG Compared to ECG 11/11/2018 16:34:37 Right-axis deviation now present Electronically Signed On 06-02-2023 8:21:32 EDT by CRISTIAN NOVA
[2023-06-01 01:24] VITALS: BP 125/86; PULSE 72; O2SAT 100
--- NOTE | 2023-06-01 01:31 | ED.GENADUL1 ---
HPI HPI - General Adult General Chief complaint: Chest Pain Stated complaint: CP, TOOK ACID REFLUX MEDS, PAIN LEFT CAME BACK Time Seen by Provider: 05/31/23 22:19 Source: patient Mode of arrival: walk-in Limitations: no limitations History of Present Illness HPI narrative: Around 5pm on 05/31/23, the patient had an alcoholic drink - some kind of seagrams drink - and shortly after felt pain in the epigastrium/upper abdomen. She did not have any additional alcohol. The pain lingered so she took a pepcid. The pain decreased until she ate a piece of heavily buttered toast and that seemed to make the pain worse. She told me that the pain radiated into the left rib area where it has been since. No chest pain or shortness of breath. Prior to drinking the seagram's beverage, she had no GI or other symptoms. No fever or chills before or after the onset of the pain. No cough or shortness of breath. No recent injury to the chest or abdomen. She has not had a Bm. Urinating does not affect the pain. Related Data Home Medications ?Medication ?Instructions ?Recorded ?Confirmed drospirenone 3 mg-ethinyl 1 tab PO DAILY 12/13/22 05/31/23 estradiol 0.03 mg tablet (Katie) Allergies Allergy/AdvReac Type Severity Reaction Status Date / Time No Known Drug Allergies Allergy Verified 05/31/23 22:35 Opioid HPI Opioid Management Most Recent Opioid Data: Last Pain Scale 6 06/01/23 01:21 PFSH PFSH Social History Smoking status: Current every day smoker Exam Narrative Exam Narrative: Nurses notes and vital signs reviewed and patient is not hypoxic. Afebrile General: Well-appearing and in no apparent distress. Skin: Warm, dry, no pallor noted. No rash to abdomen. Eye: Pupils are equal, round and EOMI. No scleral icterus. Cardiovascular: Regular Rate and Rhythm without murmur, gallop or rub. Respiratory: No accessory muscle use or respiratory distress. Lungs are clear to auscultation, no wheezing, rales or rhonchi Back: No CVA tenderness Musculoskeletal: normal ROM GI: Abdomen is soft, non-distended. Normal bowel sounds. No masses appreciated. No tenderness to palpation. No rebound, guarding, or rigidity noted. Neurological: A&O x4. No cranial nerve dysfunction observed. No truncal ataxia. Moves all extremities. Sensation intact. Psychiatric: Cooperative and interactive. Normal mood and affect. Constitutional Vital Signs, click to edit/add: Last Vital Signs Temp 98.4 F 05/31/23 22:24 Pulse 72 06/01/23 01:24 Resp 16 06/01/23 01:24 BP 125/86 06/01/23 01:24 Pulse Ox 100 06/01/23 01:24 O2 Del Method Room Air 05/31/23 22:24 Course Vital Signs Vital signs: Vital Signs Temperature 98.4 F 05/31/23 22:24 Pulse Rate 83 05/31/23 22:24 Respiratory Rate 22 H 05/31/23 22:24 Blood Pressure 146/94 H 05/31/23 22:24 Pulse Oximetry 100 05/31/23 22:24 Oxygen Delivery Method Room Air 05/31/23 22:24 Temperature 98.4 F 05/31/23 22:24 Pulse Rate 72 06/01/23 01:24 Respiratory Rate 16 06/01/23 01:24 Blood Pressure 125/86 06/01/23 01:24 Pulse Oximetry 100 06/01/23 01:24 Oxygen Delivery Method Room Air 05/31/23 22:24 Medical Decision Making MDM Narrative Medical decision making narrative: The patient was fine Until she drink the alcoholic beverage. Then she developed epigastric discomfort indicative of an acute gastritis. She had not eaten prior to this. She then tried to eat some food that had high salt content and that made the pain worse. She said no relief with Pepcid but her pain is actually decreased within the few hours after the onset of pain and then worsened when she tried to eat. EKG obtained at triage. No ST elevation or ischemic changes noted. The patient's exam is benign. She was given a GI cocktail and discharged home with recommendation to maintain a bland diet and take Pepcid as needed for any continued symptoms. ECG Data Attestation: I personally reviewed and interpreted this ECG as follows: Interpretation: EKG interpretation: Emergency Department physician interpretation. Normal sinus rhythm at 80bpm. Rightward axis, normal intervals and no ST segment elevation or depression. Discharge Plan Discharge Stand Alone Forms: Portal Instructions Chief Complaint: Chest Pain Clinical Impression: Gastritis, Abdominal pain Patient Disposition: Home, Self-Care Time of Disposition Decision: 01:37 Prescriptions / Home Meds: No Action drospirenone-ethinyl estradiol [Katie] 3-0.03 mg tablet 1 tab PO DAILY Print Language: Ecuadorean Instructions: Gastritis (ED), Abdominal Pain (ED) Referrals: LA NENA MOSELEY [Primary Care Provider] - 1 week
[2023-06-01] MEDS: lidocaine HCL 15 ML, MAG HYDROX/ALUMINUM HYD/SIMETH 30 ML, HYOSCYAMINE SULFATE 0.25 MG PO (01:48)
== END 2023-06-01 01:50 | disposition home or self-care (01) ==
PROVIDERS: Emergency Provider Emergency Medicine; PCP Family Medicine
DX: K29.70 Gastritis, unspecified, without bleeding (principal); R10.13 Epigastric pain; R10.10 Upper abdominal pain, unspecified; F17.200 Nicotine dependence, unspecified, uncomplicated
CPT/HCPCS: 93005; 99283

== ENCOUNTER 2023-10-11 20:49 | Emergency (ER) | payer MEDICAID, SELFPAY ==
[2023-10-11] VITALS (14 sets, daily range): BP systolic 113–136; BP diastolic 68–87; PULSE 82–105; TEMP 36.8; O2SAT 83–100; BMI 29.5
--- NOTE | 2023-10-11 20:45 | ECG_ITS ---
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
--- OUTSIDE RECORDS SUMMARY | 2023-10-11 20:55 | XMS_ITS | CCD ---
Author Organization [facility] Informat ion Partnership [facility] Care Team Providers Care Cfo Controller Name Role Phone KARON, DR BRODY Penaloza Admitting Unavailable KARON, DR BRODY Penaloza Consulting Unavailable KARON, DR BRODY Penaloza Attending Unavailable LORELEI, DR DEUTSCH Primary Care Unavailable DARYA ., DR WATT Admitting Unavailable DARYA ., DR WATT Attending [facility] Yesy Lopez Consulting Unavailable LORELEI, DR DEUTSCH Primary Care Unavailable DARYA ., DR WATT Consulting Unavailable Erwin Rhea Unavailable SHUKRI LACKEY Attending Unavailable Medications Current Medications Medication Drug Class(es) Dates Sig (Normalized) Sig (Original) hydrocortisone 10 mg/ml / neomycin 3.5 mg/ml / polymyxin b 59405 unt/ml otic solution (1 source) Aminoglycoside Antibacterial, Polymyxin-class Antibacterial, Corticosteroid Start: 03-20-2022 Neomycin-Polymyx in-HC 3.5-25324-5 4 drops into affected ear Otic Three [...] Onset: 04-22-2022 Episodic Other aftercare (1 source) snf (current) use of oral hypoglycemic drugs; Translations: [NURSING HOME USE ORAL HYPOGLYCEMIC DX] Onset: 04-25-2022 Episodic Other aftercare (1 source) snf (current) use of hormonal contraceptives; Translations: [NURSING HOME HORMONAL CONTRACEPTIVES] Onset: 04-25-2022 Episodic Other ear [...] Amylase [Catalytic activity/Vol] 34 U/L Normal 25-115 [facility] Comment on above: Performed By: #### A MY, LIPA #### [facility] [address] [address] [address] Estephania Funez CBC AUTO DIFFon 04-22-2022 BASO # 0.0 103/ul Normal 0.0-0.1 [facility] Comment on above: Performed By: #### C BC #### [facility] [address] [place], [place] [address] Dr. Estephania Funez Basophils/100 WBC (Bld) 0.3 % Normal 0.2-2.0 [facility] Comment on above: Performed By: #### C BC #### [facility] [address] [place] [address] Dr. Estephania Funez EO # 0.1 103/ul Normal 0.0-0.7 [facility] Comment on above: Performed By: #### C BC #### [facility] [address] [place] [address] Dr. Estephania Funez Eosinophils/100 WBC (Bld) 0.7 % Critically low 0.9-7.0 [facility] Comment on above: Performed By: #### C BC #### [facility] [address] [place] [address] Dr. Estephania Funez Erythrocyte distribution width (RBC) [Ratio] 16.0 % Critically high 11.0-15.0 [facility] Comment on above: Performed By: #### C BC #### [facility] [address] [place] [address] Dr. Estephania Funez Hematocrit (Bld) [Volume fraction] 35.5 % Critically low 36.0-48.0 [facility] Comment on above: Performed By: #### C BC #### [facility] [address] [place] [address] Dr. Estephania Funez Hemoglobin (Bld) [Mass/Vol] 11.1 g/dL Critically low 12.0-16.0 [facility] Comment on above: Performed By: #### C BC #### [facility] [address] [place] [address] Dr. Estephania Funez IG # 0.01 10e3/ul Normal 0.00-0.03 [facility] Comment on above: Performed By: #### C BC #### [facility] [address] [place] [address] Dr. Estephania Funez IG % 0.1 % Normal 0.0-0.5 [facility] Comment on above: Performed By: #### C BC #### [facility] [address] [place] [address] Dr. Estephania Funez LYMPH # 1.7 103/ul Normal 1.2-3.8 [facility] Comment on above: Performed By: #### C BC #### [facility] [address] [place] [address] Dr. Estephania Funez Lymphocytes/100 WBC (Bld) 23.9 % Normal 20.5-60.0 [facility] Comment on above: Performed By: #### C BC #### [facility] [address] [place] [address] Dr. Estephania Funez MANUAL DIFF REQ NO Normal [facility] Comment on above: Performed By: #### C BC #### [facility] [address] [place] [address] Dr. Estephania Funez MCH (RBC) [Entitic mass] 22.3 pg Critically low 26.7-34.0 [facility] Comment on above: Performed By: #### C BC #### [facility] [address] [place] [address] Dr. Estephania Funez MCHC (RBC) [Mass/Vol] 31.3 g/dL Normal 29.9-35.2 [facility] Comment on above: Performed By: #### C BC #### [facility] [address] [place] [address] Dr. Estephania Funez MCV (RBC) [Entitic vol] 71.4 fL Critically low 81.0-99.0 [facility] Comment on above: Performed By: #### C BC #### [facility] [address] [place] [address] Dr. Estephania Funez MONO # 0.4 103/ul Normal 0.3-0.8 [facility] Comment on above: Performed By: #### C BC #### [facility] [address] [place] [address] Dr. Estephania Funez Monocytes/100 WBC (Bld) 6.2 % Normal 1.7-12.0 [facility] Comment on above: Performed By: #### C BC #### [facility] [address] [place] [address] Dr. Estephania Funez NEUT # 4.9 103/ul Normal 1.4-6.5 [facility] Comment on above: Performed By: #### C BC #### [facility] [address] [place] [address] Dr. Estephania Funez Neutrophils/100 WBC (Bld) 68.8 % Normal 43.0-75.0 [facility] Comment on above: Performed By: #### C BC #### [facility] [address] [place] [address] Dr. Estephania Funez Platelet mean volume (Bld) [Entitic vol] 11.9 fL Normal 9.5-13.5 [facility] Comment on above: Performed By: #### C BC #### [facility] [address] [place] [address] Dr. Estephania Funez PLT 228 103/ul Normal 150-450 [facility] Comment on above: Performed By: #### C BC #### [facility] [address] [place] [address] Dr. Estephania Funez RBC 4.97 106/ul Normal 4.20-5.40 [facility] Comment on above: Performed By: #### C BC #### [facility] [address] [place] [address] Dr. Estephania Funez WBC 7.1 103/ul Normal 4.0-11.0 [facility] Comment on above: Performed By: #### C BC #### [facility] [address] [place] [address] Dr. Estephania Funez ER URINE PROFILEon 3 Bilirubin Ql (U) Negative Normal NEGATIVE [facility] Comment on above: Performed By: #### E RUR, PREGU #### [facility] [address] [place] [address] Dr. Estephania Funez Clarity (U) CLEAR Normal CLEAR [facility] Comment on above: Performed By: #### E RUR, PREGU #### [facility] [address] [place] [address] Dr. Estephania Funez Color (U) YELLOW Normal YELLOW [facility] Comment on above: Performed By: #### E RUR, PREGU #### [facility] [address] [place] [address] Dr. Estephania YEBOAH A micrscopic examination will be performed if indicated. Normal [facility] Comment on above: Performed By: #### E RUR, PREGU #### [facility] [address] [address] [address] Estephania Funez Glucose Ql (U) Negative Normal NEGATIVE [facility] Comment on above: Performed By: #### E RUR, PREGU #### [facility] [address] [address] [address] Estephania Funez Hemoglobin Ql (U) Negative Normal NEGATIVE [facility] Comment on above: Performed By: #### E RUR, PREGU #### [facility] [address] [place] [address] Dr. Estephania Funez Ketones Ql (U) Negative Normal NEGATIVE [facility] Comment on above: Performed By: #### E RUR, PREGU #### [facility] [address] [place] [address] Dr. Estephania Funez LEUKOCYTES Negative Normal NEGATIVE [facility] Comment on above: Performed By: #### E RUR, PREGU #### [facility] [address] [place] [address] Dr. Estephania Funez Nitrite Ql (U) Negative Normal NEGATIVE [facility] Comment on above: Performed By: #### E RUR, PREGU #### [facility] [address] [place] [address] Dr. Estephania Funez pH (U) 6.0 [pH] Normal 5-9 [facility] Comment on above: Performed By: #### E RUR, PREGU #### [facility] [address] [place] [address] Dr. Estephania Funez SPEC GRAVITY >=1.030 Abnormal 1.005-<=1.025 [facility] Comment on above: Performed By: #### E RUR, PREGU #### [facility] [address] [place] [address] Dr. Estephania Funez UA PROTEIN TRACE Normal NEGATIVE/ TRACE [facility] Comment on above: Performed By: #### E RUR, PREGU #### [facility] [address] [place] [address] Dr. Estephania Funez UR MICRO IND NOT INDICATED Normal [facility] Comment on above: Performed By: #### E RUR, PREGU #### [facility] [address] [place] [address] Dr. Estephania Funez Urobilinogen Qn (U) 1.0 {Gini'U}/dL Normal 0.2 - 1.0 [facility] Comment on above: Performed By: #### E RUR, PREGU #### [facility] [address] [place] [address] Dr. Estephania Funez LIPASEon 04-22-2022 Lipase [Catalytic activity/Vol] 84.0 U/L Normal 73.0-393.0 [facility] Comment on above: Performed By: #### A MY, LIPA #### [facility] [address] [place] [address] Dr. Estephania Funez URon 04-22-2022 , QUAL Negative Normal NEGATIVE [facility] Comment on above: Performed By: #### E MARINOR, PREGU #### [facility] [address] [place] [address] Dr. Estephania Funez PROF 14(COMP METB)on 023 Albumin [Mass/Vol] 3.3 g/dL Critically low 3.4-5.0 [facility] Comment on above: Performed By: #### C MP #### [facility] [address] [place] [address] Dr. Estephania Funez Albumin/Globulin [Mass ratio] 0.8 {ratio} Normal [facility] Comment on above: Performed By: #### C MP #### [facility] [address] [place] [address] Dr. Estephania Funez ALP [Catalytic activity/Vol] 60 U/L Normal 46-116 [facility] Comment on above: Performed By: #### C MP #### [facility] [address] [place] [address] Dr. Estephania Funez ALT [Catalytic activity/Vol] 16 U/L Normal 14-59 [facility] Comment on above: Performed By: #### C MP #### [facility] [address] [address] [address] Estephania Funez Anion gap [Moles/Vol] 14.1 mmol/L Normal [facility] Comment on above: Performed By: #### C MP #### [facility] [address] [address] [address] Estephania Funez AST [Catalytic activity/Vol] 13 U/L Critically low 15-37 [facility] Comment on above: Performed By: #### C MP #### [facility] [address] [address] [address] Estephania Funez Bilirubin [Mass/Vol] 0.3 mg/dL Normal 0.2-1.0 [facility] Comment on above: Performed By: #### C MP #### [facility] [address] [address] [address] Estephania Funez Calcium [Mass/Vol] 9.1 mg/dL Normal 8.5-10.1 [facility] Comment on above: Performed By: #### C MP #### [facility] [address] [address] [address] Estephania Funez Chloride [Moles/Vol] 103 mmol/L Normal 98-107 [facility] Comment on above: Performed By: #### C MP #### [facility] [address] [address] [address] Estephania Funez CO2 [Moles/Vol] 24.7 mmol/L Normal 21.0-32.0 [facility] Comment on above: Performed By: #### C MP #### [facility] [address] [address] [address] Estephania Funez Creatinine [Mass/Vol] 0.64 mg/dL Normal 0.55-1.02 [facility] Comment on above: Performed By: #### C MP #### [facility] [address] [address] [address] Estephania Funez EGFR-AF PAKISTANI >60 Normal >=60 [facility] Comment on above: Performed By: #### C MP #### [facility] [address] [address] [address] Estephania Funez EGFR-NON AF PAKISTANI >60 Normal >=60 [facility] Comment on above: Performed By: #### C MP #### [facility] [address] [address] [address] Estephania Funez Globulin (S) [Mass/Vol] 3.9 g/dL Normal [facility] Comment on above: Performed By: #### C MP #### [facility] [address] [address] [address] Estephania Funez Glucose [Mass/Vol] 101 mg/dL Normal 74-106 [facility] Comment on above: Performed By: #### C MP #### [facility] [address] [place] [address] Dr. Estephania Funez Potassium [Moles/Vol] 3.8 mmol/L Normal 3.5-5.1 [facility] Comment on above: Performed By: #### C MP #### [facility] [address] [address] [address] Estephania Funez Protein [Mass/Vol] 7.2 g/dL Normal 6.4-8.2 [facility] Comment on above: Performed By: #### C MP #### [facility] [address] [address] [address] Estephania Funez Sodium [Moles/Vol] 138 mmol/L Normal 136-145 [facility] Comment on above: Performed By: #### C MP #### [facility] [address] [address] [address] Estephania Funez Urea nitrogen [Mass/Vol] 11.0 mg/dL Normal 6.4-19.3 [facility] Comment on above: Performed By: #### C MP #### [facility] [address] [address] [address] Estephania Funez Urea nitrogen/Creatinin e [Mass ratio] 17.2 mg/mg Normal [facility] Comment on above: Performed By: #### C MP #### [facility] [address] [address] [address] Estephania Funez US PELVIS AND TRANSVAGon [...] by: YESY LOPEZ Date: 2021-06-01 10:03 Normal [facility] XR knee LT 4V*on 10-25-2020 XR knee LT 4V* [facility] [place] [address] XRay Report Signed Patient: Doreen Martins MR#: [id number] : 2000 Acct:[id number] Age/Sex: 20 / F ADM Date: 10/25/20 Loc: XDUCLY Room: Type: [facility] Attending Dr: Rhea RIVERA Ordering Provider: RHEA [...] Sonny Luz M.D.10/25/2020 5:30 PM Dictation Location: [facility] Transcribed By: [facility] 10/25/20 1730 Dictated By: Sonny Luz DO 10/25/20 172 Signed By: 10/25/20 1730 Normal [facility] XR finger RT 4th digiton XR finger RT 4th digit [facility] [place] [address] XRay Report Signed Patient: Doreen Martins MR#: [id number] : 2000 Acct:[id number] Age/Sex: 20 / F ADM Date: 08/13/20 Loc: XDUCLY Room: Type: [facility] Attending Dr: Rhea RIVERA Ordering Provider: RHEA [...] Brody Bronson M.D.08/13/2020 2:44 PM Dictation Location: [address] [address] Transcribed By: TERE 08/13/20 1444 Dictated By: Brody Bronson II, MD 08/13/20 1442 Signed By: 08/13/20 1444 [facility] Vital Signs Date Time Vital Sign Value Performing Clinician Facility 03-20-2022 15:25-0500 Body height 167.64 cm Rhea River Other [facility] Other 03-20-2022 15:25-0500 Body mass index (BMI) [Ratio] 36.31 kg/m2 Rhea River Other [facility] Other 03-20-2022 15:25-0500 Body temperature 98.3 [degF] Rhea River Other [facility] Other 03-20-2022 15:25-0500 Body weight 102.06 kg Rhea River Other [facility] Other 03-20-2022 15:25-0500 Diastolic blood pressure 92 mm[Hg] Rhea River Other [facility] Other 03-20-2022 15:25-0500 Respiratory rate 18 /min Rhea River Other [facility] Other 03-20-2022 15:25-0500 SaO2% (BldA) [Mass fraction] 98 % Rhea River Other [facility] Other 03-20-2022 15:25-0500 Systolic blood pressure 143 mm[Hg] Rhea Kingault Other [facility] Other Encounters Encounter Date Encounter Type Care Provider Facility Start: 03-20-2023 End: 03-20-2023 ambulatory SHUKRI LACKEY Not Available Start: 04-22-2022 End: 04-22-[address] BRODY BRANTLEY Facility: Start: 03-20-2022 End: 03-20-2022 ambulatory Rhea River Other [facility] Other Start: 03-20-2022 Office outpatient visit 15 minutes Rhea River [facility] Start: 06-01-2021 End: 06-02-[address] SHUKRI LACKEY . Facility: Payers Date Payer Category Payer Medicaid [id number] 2000 Unknown [id number] 2000 Unknown [id number] 2000 Unknown [id number] 1959 Unknown [id number] Social History Date Type Detail Facility Unknown if ever smoked [facility] Other Sex Assigned At Sex Assigned At Bir th [facility] Other Evaluation note 03-20-2022 Note Date & [...] no improvement of symptoms or symptom return [facility] Other History general Narrative - Reported Note Date & Type Note Facility History general Narrative - Reported Type Medical History Scoliosis Medical History ADHD Surgical History tonsillectomy and adenoidectomy Surgical History Foot Surgery b/l [facility] Other Summary Purpose Family History No Family History Records FoundNo Family History Records FoundNo Family History Records Found Advance Directives No Advanced Directives Records FoundNo Advanced Directives Records FoundNo Advanced Directives Records Found Additional Source Comments INFORMATION SOURCE (unrecogn ized section and content) DATE CREATED AUTHOR 03/19/2021 [facility] DATE CREATED AUTHOR AUTHOR'S ORGANIZ ATION 04/26/2022 [facility] DATE CREATED AUTHOR AUTHOR'S ORGANIZ ATION 03/21/2023 [facility] EPIC REASON FOR VISIT [...] BE BASED ON THE PRIMARY CLINICAL RECORDS. [facility] [employer] provides no warranty or guarantee of the accuracy or completeness of information in this document.
--- NOTE | 2023-10-11 21:09 | XR_ITS ---
[address] [address] Patient Name: HALLE MARTINS MRN: [id number] date: 2000 Sex: F Assigned Patient Location: ER Current Patient Location: ER Accession/Order Number: [id number] Exam Date: 10/11/2023 21:20 Report Date: 10/11/2023 22:33 At the request of: ALMA WILLIAMSON Procedure: XR chest 1V EXAM: XR chest 1V HISTORY: cough COMPARISON: None FINDINGS/IMPRESSION: 1. Lungs are clear 2. No pneumothorax. No pleural effusion. 3. Heart size and mediastinal contours are normal 4. No acute osseous abnormality 5. Upper abdominal bowel gas pattern is nonspecific. Electronically authenticated by: PHILLY MELLO Date: 10/11/2023 22:33
--- NOTE | 2023-10-11 21:10 | ED_ITS ---
HPI - Chest Pain General Chief Complaint: Chest Pain Stated Complaint: chest pain Time Seen by Provider: 10/11/23 21:06 Source: patient Mode of arrival: walk-in History of Present Illness HPI narrative: 23-year-old female presents to the emergency department for chest pain. She quit vaping a few days ago and now she is coughing up a small amount of yellow phlegm. It hurts in the middle part of her chest, no trauma. No back pain or fever. The pain does not seem to radiate. A coworker told her that it might be due to stopping vaping and her body craving nicotine. Related Data Home Medications ?Medication ?Instructions ?Recorded ?Confirmed drospirenone 3 mg-ethinyl 1 tab PO DAILY 12/13/22 05/31/23 estradiol 0.03 mg tablet (Katie) Allergies Allergy/AdvReac Type Severity Reaction Status Date / Time No Known Drug Allergies Allergy Verified 10/11/23 21:05 Review of Systems ROS Narrative A ten point review of systems is negative except as noted above. PFSH [facility] Medical History (Updated 10/11/23 @ 22:44 by Ortiz Arora MD) Anxiety ?F41.9 - Anxiety disorder, unspecified (ICD-10) Surgical History (Updated 10/11/23 @ 21:00 by Brain Cruz) History of tonsillectomy and adenoidectomy ?Z90.89 - Acquired absence of other organs (ICD-10) Social History Smoking status: Current every day smoker Exam Narrative Exam Narrative: Nurses note and vital signs reviewed and patient is not hypoxic. General: The patient appears well and in no apparent distress. Patient is resting comfortably on cart. Skin: Warm, dry, no pallor noted. There is no rash noted. Head: Normocephalic, atraumatic Eye: Normal conjunctiva, no drainage Ears, Nose, Mouth, and Throat: oral mucosa is moist. Nares patent. Cardiovascular: Regular Rate and Rhythm Respiratory: Patient is in no distress, no accessory muscle use, lungs are clear to auscultation, no wheezing, rales or rhonchi. Chest wall nontender Back: non-tender GI: Soft and nontender Musculoskeletal: The patient has no evidence of calf tenderness, no pitting edema, symmetrical pulses noted bilaterally Neurological: A&O, normal speech Psychiatric: Cooperative Constitutional Vital Signs, click to edit/add: Last Vital Signs Temp 98.2 F 10/11/23 20:54 Pulse 91 H 10/11/23 22:00 Resp 18 10/11/23 22:00 BP 122/81 10/11/23 22:00 Pulse Ox 100 10/11/23 22:00 O2 Del Method Room Air 10/11/23 20:54 Course Vital Signs Vital signs: Vital Signs Temperature 98.2 F 10/11/23 20:54 Pulse Rate 92 H 10/11/23 20:54 Respiratory Rate 18 10/11/23 20:54 Blood Pressure 136/83 10/11/23 20:54 Pulse Oximetry 100 10/11/23 20:54 Oxygen Delivery Method Room Air 10/11/23 20:54 Temperature 98.2 F 10/11/23 20:54 Pulse Rate 91 H 10/11/23 22:00 Respiratory Rate 18 10/11/23 22:00 Blood Pressure 122/81 10/11/23 22:00 Pulse Oximetry 100 10/11/23 22:00 Oxygen Delivery Method Room Air 10/11/23 20:54 MDM - Chest Pain MDM Narrative Medical decision making narrative: Her workup is negative and should be treated symptomatically. I have no clinical suspicion of pulmonary embolism. Treatment diagnosis and follow-up were discussed with the patient. Differential Diagnosis Differential diagnosis: Likely pneumothorax, atypical chest pain, st elevation myocardial infarction, costochondritis and chest pain ECG Data Attestation: I personally reviewed and interpreted this ECG as follows: (EKG on my interpretation shows normal sinus rhythm without acute change and rate of 95.) Discharge Plan Discharge Stand Alone Forms: Portal Instructions Chief Complaint: Chest Pain Clinical Impression: Viral upper respiratory tract infection Patient Disposition: Home, Self-Care Time of Disposition Decision: 22:43 Condition: Good Mode of Transportation: Private Vehicle Prescriptions / Home Meds: No Action drospirenone-ethinyl estradiol [Katie] 3-0.03 mg tablet 1 tab PO DAILY Print Language: Estonian Instructions: Upper Respiratory Infection (ED) Referrals: LA NENA MOSELEY [Primary Care Provider] - 1 week
[2023-10-11] MEDS: IBUPROFEN 400 MG TABLET 800 MG PO (22:51)
[2023-10-11] MEDS: BENZONATATE 100 MG CAPSULE 200 MG PO (22:51)
== END 2023-10-11 23:02 | disposition home or self-care (01) ==
PROVIDERS: Emergency Provider Emergency Medicine; PCP Family Medicine
DX: J06.9 Acute upper respiratory infection, unspecified (principal); F17.200 Nicotine dependence, unspecified, uncomplicated
CPT/HCPCS: 71045; 93005; 99284

== ENCOUNTER 2023-11-12 21:17 | Outpatient (REF) | payer MEDICAID, SELFPAY ==
--- OUTSIDE RECORDS SUMMARY | 2023-11-12 21:21 | XMS_ITS | CCD ---
Author Organization 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 Estephania Funez CBC AUTO DIFFon 04-22-2022 BASO # 0.0 103/ul Normal 0.0-0.1 [facility] Comment on above: Performed By: #### C BC #### [facility] [address], [place] [address] Dr. Estephania Funez Basophils/100 WBC (Bld) 0.3 % Normal 0.2-2.0 [facility] Comment on above: Performed By: #### C BC #### [facility] [address] [place] [address] Dr. Estephania Funez EO # 0.1 103/ul Normal 0.0-0.7 [facility] Comment on above: Performed By: #### C BC #### [facility] [address] [place] [address] Dr. Estephania Funez Eosinophils/100 WBC (Bld) 0.7 % Critically low 0.9-7.0 [facility] Comment on above: Performed By: #### C BC #### [facility] [address] [place] [address] Dr. Estephania Funez Erythrocyte distribution width (RBC) [Ratio] 16.0 % Critically high 11.0-15.0 [facility] Comment on above: Performed By: #### C BC #### [facility] [address] [place] [address] Dr. Estephania Funez Hematocrit (Bld) [Volume fraction] 35.5 % Critically low 36.0-48.0 [facility] Comment on above: Performed By: #### C BC #### [facility] [address] [place] [address] Dr. Estephania Funez Hemoglobin (Bld) [Mass/Vol] 11.1 g/dL Critically low 12.0-16.0 [facility] Comment on above: Performed By: #### C BC #### [facility] [address] [place] [address] Dr. Estephania Funez IG # 0.01 10e3/ul Normal 0.00-0.03 [facility] Comment on above: Performed By: #### C BC #### [facility] [address] [place] [address] Dr. Estephania Funez IG % 0.1 % Normal 0.0-0.5 [facility] Comment on above: Performed By: #### C BC #### [facility] [address] [place] [address] Dr. Estephania Funez LYMPH # 1.7 103/ul Normal 1.2-3.8 [facility] Comment on above: Performed By: #### C BC #### [facility] [address] [place] [address] Dr. Estephania Funez Lymphocytes/100 WBC (Bld) 23.9 % Normal 20.5-60.0 [facility] Comment on above: Performed By: #### C BC #### [facility] [address] [place] [address] Dr. Estephania Funez MANUAL DIFF REQ NO Normal [facility] Comment on above: Performed By: #### C BC #### [facility] [address] [place] [address] Dr. Estephania Funez MCH (RBC) [Entitic mass] 22.3 pg Critically low 26.7-34.0 [facility] Comment on above: Performed By: #### C BC #### [facility] [address] [place] [address] Dr. Estephania Funez MCHC (RBC) [Mass/Vol] 31.3 g/dL Normal 29.9-35.2 [facility] Comment on above: Performed By: #### C BC #### [facility] [address] [place] [address] Dr. Estephania Funez MCV (RBC) [Entitic vol] 71.4 fL Critically low 81.0-99.0 [facility] Comment on above: Performed By: #### C BC #### [facility] [address] [place] [address] Dr. Estephania Funez MONO # 0.4 103/ul Normal 0.3-0.8 [facility] Comment on above: Performed By: #### C BC #### [facility] [address] [place] [address] Dr. Estephania Funez Monocytes/100 WBC (Bld) 6.2 % Normal 1.7-12.0 [facility] Comment on above: Performed By: #### C BC #### [facility] [address] [place] [address] Dr. Estephania Funez NEUT # 4.9 103/ul Normal 1.4-6.5 [facility] Comment on above: Performed By: #### C BC #### [facility] [address] [place] [address] Dr. Estephania Funez Neutrophils/100 WBC (Bld) 68.8 % Normal 43.0-75.0 [facility] Comment on above: Performed By: #### C BC #### [facility] [address] [place] [address] Dr. Estephania Funez Platelet mean volume (Bld) [Entitic vol] 11.9 fL Normal 9.5-13.5 [facility] Comment on above: Performed By: #### C BC #### [facility] [address] [place] [address] Dr. Estephania Funez PLT 228 103/ul Normal 150-450 [facility] Comment on above: Performed By: #### C BC #### [facility] [address] [place] [address] Dr. Estephania Funez RBC 4.97 106/ul Normal 4.20-5.40 [facility] Comment on above: Performed By: #### C BC #### [facility] [address] [place] [address] Dr. Estephania Funez WBC 7.1 103/ul Normal 4.0-11.0 [facility] Comment on above: Performed By: #### C BC #### [facility] [address] [place] [address] Dr. Estephania Funez ER URINE PROFILEon 3 Bilirubin Ql (U) Negative Normal NEGATIVE [facility] Comment on above: Performed By: #### E RUR, PREGU #### [facility] [address] [place] [address] Dr. Estephania Funez Clarity (U) CLEAR Normal CLEAR [facility] Comment on above: Performed By: #### E RUR, PREGU #### [facility] [address] [place] [address] Dr. Estephania Funez Color (U) YELLOW Normal YELLOW [facility] Comment on above: Performed By: #### E RUR, PREGU #### [facility] [address] [place] [address] Dr. Estephania YEBOAH A micrscopic examination will be performed if indicated. Normal [facility] Comment on above: Performed By: #### E RUR, PREGU #### [facility] [address] [address] [address] Estephania Funez Glucose Ql (U) Negative Normal NEGATIVE [facility] Comment on above: Performed By: #### E RUR, PREGU #### [facility] [address] [address] [address] Estephania Funez Hemoglobin Ql (U) Negative Normal NEGATIVE [facility] Comment on above: Performed By: #### E RUR, PREGU #### [facility] [address] [place] [address] Dr. Estephania Funez Ketones Ql (U) Negative Normal NEGATIVE [facility] Comment on above: Performed By: #### E RUR, PREGU #### [facility] [address] [place] [address] Dr. Estephania Funez LEUKOCYTES Negative Normal NEGATIVE [facility] Comment on above: Performed By: #### E RUR, PREGU #### [facility] [address] [place] [address] Dr. Estephania Funez Nitrite Ql (U) Negative Normal NEGATIVE [facility] Comment on above: Performed By: #### E RUR, PREGU #### [facility] [address] [place] [address] Dr. Estephania Funez pH (U) 6.0 [pH] Normal 5-9 [facility] Comment on above: Performed By: #### E RUR, PREGU #### [facility] [address] [place] [address] Dr. Estephania Funez SPEC GRAVITY >=1.030 Abnormal 1.005-<=1.025 [facility] Comment on above: Performed By: #### E RUR, PREGU #### [facility] [address] [place] [address] Dr. Estephania Funez UA PROTEIN TRACE Normal NEGATIVE/ TRACE [facility] Comment on above: Performed By: #### E RUR, PREGU #### [facility] [address] [place] [address] Dr. Estephania Funez UR MICRO IND NOT INDICATED Normal [facility] Comment on above: Performed By: #### E RUR, PREGU #### [facility] [address] [place] [address] Dr. Estephania Funez Urobilinogen Qn (U) 1.0 {Gini'U}/dL Normal 0.2 - 1.0 [facility] Comment on above: Performed By: #### E RUR, PREGU #### [facility] [address] [place] [address] Dr. Estephania Funez LIPASEon 04-22-2022 Lipase [Catalytic activity/Vol] 84.0 U/L Normal 73.0-393.0 [facility] Comment on above: Performed By: #### A MY, LIPA #### [facility] [address] [place] [address] Dr. Estephania Funez URon 04-22-2022 , QUAL Negative Normal NEGATIVE [facility] Comment on above: Performed By: #### E MARINOR, PREGU #### [facility] [address] [place] [address] Dr. Estephania Funez PROF 14(COMP METB)on 023 Albumin [Mass/Vol] 3.3 g/dL Critically low 3.4-5.0 [facility] Comment on above: Performed By: #### C MP #### [facility] [address] [place] [address] Dr. Estephania Funez Albumin/Globulin [Mass ratio] 0.8 {ratio} Normal [facility] Comment on above: Performed By: #### C MP #### [facility] [address] [place] [address] Dr. Estephania Funez ALP [Catalytic activity/Vol] 60 U/L Normal 46-116 [facility] Comment on above: Performed By: #### C MP #### [facility] [address] [place] [address] Dr. Estephania Funez ALT [Catalytic activity/Vol] 16 U/L Normal 14-59 [facility] Comment on above: Performed By: #### C MP #### [facility] [address] [address] [address] Estephania Funez Anion gap [Moles/Vol] 14.1 mmol/L Normal [facility] Comment on above: Performed By: #### C MP #### [facility] [address] [address] [address] Estephania Funez AST [Catalytic activity/Vol] 13 U/L Critically low 15-37 [facility] Comment on above: Performed By: #### C MP #### [facility] [address] [address] [address] Estephania Funez Bilirubin [Mass/Vol] 0.3 mg/dL Normal 0.2-1.0 [facility] Comment on above: Performed By: #### C MP #### [facility] [address] [address] [address] Estephania Funez Calcium [Mass/Vol] 9.1 mg/dL Normal 8.5-10.1 [facility] Comment on above: Performed By: #### C MP #### [facility] [address] [address] [address] Estephania Funez Chloride [Moles/Vol] 103 mmol/L Normal 98-107 [facility] Comment on above: Performed By: #### C MP #### [facility] [address] [address] [address] Estephania Funez CO2 [Moles/Vol] 24.7 mmol/L Normal 21.0-32.0 [facility] Comment on above: Performed By: #### C MP #### [facility] [address] [address] [address] Estephania Funez Creatinine [Mass/Vol] 0.64 mg/dL Normal 0.55-1.02 [facility] Comment on above: Performed By: #### C MP #### [facility] [address] [address] [address] Estephania Funez EGFR-AF BANGLADESHI >60 Normal >=60 [facility] Comment on above: Performed By: #### C MP #### [facility] [address] [address] [address] Estephania Funez EGFR-NON AF BANGLADESHI >60 Normal >=60 [facility] Comment on above: Performed By: #### C MP #### [facility] [address] [address] [address] Estephania Funez Globulin (S) [Mass/Vol] 3.9 g/dL Normal [facility] Comment on above: Performed By: #### C MP #### [facility] [address] [address] [address] Estephania Funez Glucose [Mass/Vol] 101 mg/dL Normal 74-106 [facility] Comment on above: Performed By: #### C MP #### [facility] [address] [place] [address] Dr. Estephania Funez Potassium [Moles/Vol] 3.8 mmol/L Normal 3.5-5.1 [facility] Comment on above: Performed By: #### C MP #### [facility] [address] [address] [address] Estephania Funez Protein [Mass/Vol] 7.2 g/dL Normal 6.4-8.2 [facility] Comment on above: Performed By: #### C MP #### [facility] [address] [address] [address] Estephania Funez Sodium [Moles/Vol] 138 mmol/L Normal 136-145 [facility] Comment on above: Performed By: #### C MP #### [facility] [address] [address] [address] Estephania Funez Urea nitrogen [Mass/Vol] 11.0 mg/dL Normal 6.4-19.3 [facility] Comment on above: Performed By: #### C MP #### [facility] [address] [address] [address] Estephania Funez Urea nitrogen/Creatinin e [Mass ratio] 17.2 mg/mg Normal [facility] Comment on above: Performed By: #### C MP #### [facility] [address] [address] [address] Estephania Funez US PELVIS AND TRANSVAGon [...] YESY LOPEZ Date: 2021-06-01 10:03 Normal [facility] XR knee LT 4V*on 10-25-2020 XR knee LT 4V* [facility] [place] [id number] XRay Report Signed Patient: Doreen Martins MR#: [id number] : 2000 Acct:[id number] Age/Sex: 20 / F ADM Date: 10/25/20 Loc: XDUCLY Room: Type: [facility] Attending Dr: Rhea RIVERA Ordering Provider: RHEA [...] Sonny Luz M.D.10/25/2020 5:30 PM Dictation Location: [facility] Transcribed By: [facility] 10/25/20 1730 Dictated By: Sonny Luz DO 10/25/20 172 Signed By: 10/25/20 1730 Normal [facility] XR finger RT 4th digiton XR finger RT 4th digit [facility] [place] [id number] XRay Report Signed Patient: Doreen Martins MR#: [id number] : 2000 Acct:[id number] Age/Sex: 20 / F ADM Date: 08/13/20 Loc: XDUCLY Room: Type: [facility] Attending Dr: Rhea RIVERA Ordering Provider: RHEA [...] Brody Bronson M.D.08/13/2020 2:44 PM Dictation Location: [place] [address] Transcribed By: TERE 08/13/20 1444 Dictated By: Brody Bronson II, MD 08/13/20 1442 Signed By: 08/13/20 1444 [facility] Vital Signs Date Time Vital Sign Value Performing Clinician Facility 03-20-2022 15:25-0500 Body height 167.64 cm [facility] Other [facility] Other 03-20-2022 15:25-0500 Body mass index (BMI) [Ratio] 36.31 kg/m2 [facility] Other [facility] Other 03-20-2022 15:25-0500 Body temperature 98.3 [degF] [facility] Other [facility] Other 03-20-2022 15:25-0500 Body weight 102.06 kg [facility] Other [facility] Other 03-20-2022 15:25-0500 Diastolic blood pressure 92 mm[Hg] [facility] Other [facility] Other 03-20-2022 15:25-0500 Respiratory rate 18 /min [facility] Other [facility] Other 03-20-2022 15:25-0500 SaO2% (BldA) [Mass fraction] 98 % [facility] Other [facility] Other 03-20-2022 15:25-0500 Systolic blood pressure 143 mm[Hg] Rhea Kingault Other [facility] Other Encounters Encounter Date Encounter Type Care Provider Facility Start: 03-20-2023 End: 03-20-2023 ambulatory SHUKRI LACKEY Not Available Start: 04-22-2022 End: 04-22-[address] BRODY BRANTLEY Facility: Start: 03-20-2022 End: 03-20-2022 ambulatory Rhea River Other [facility] Other Start: 03-20-2022 Office outpatient visit 15 minutes Rhea River [facility] Start: 06-01-2021 End: 06-02-[address] SHUKRI LACKEY . Facility: Payers Date Payer Category Payer Medicaid [id number] 2000 Unknown [id number] [id number] 2000 Unknown [id number] 2002 Unknown [id number] [id number] 1959 Unknown [id number] Social History Date Type Detail Facility Unknown if ever smoked [facility] Other Sex Assigned At Sex Assigned At Bir th [facility] Other Evaluation note 03-20-2022 Note Date & [...] no improvement of symptoms or symptom return [facility] Other History general Narrative - Reported Note Date & Type Note Facility History general Narrative - Reported Type Medical History Scoliosis Medical History ADHD Surgical History tonsillectomy and adenoidectomy Surgical History Foot Surgery b/l [facility] Other Summary Purpose Family History No Family History Records FoundNo Family History Records FoundNo Family History Records Found Advance Directives No Advanced Directives Records FoundNo Advanced Directives Records FoundNo Advanced Directives Records Found Additional Source Comments INFORMATION SOURCE (unrecogn ized section and content) DATE CREATED AUTHOR 03/19/2021 [facility] DATE CREATED AUTHOR AUTHOR'S ORGANIZ ATION 04/26/2022 [facility] p[facility] DATE CREATED AUTHOR AUTHOR'S ORGANIZ ATION 03/21/2023 [facility] EPIC REASON FOR VISIT [...] BE BASED ON THE PRIMARY CLINICAL RECORDS. [facility] [employer] provides no warranty or guarantee of the accuracy or completeness of information in this document.
[2023-11-16 14:10] LABS: Age Gdln ACOG Testing Note (.); IGP, rfx Aptima HPV ASCU Note (.)
== END 2023-11-12 21:18 | disposition home or self-care (01) ==
LOC: LAB 21:17
PROVIDERS: PCP Family Medicine; Visit Provider Obstetrics & Gynecology
DX: Z01.419 Encounter for gynecological examination (general) (routine) without abnormal findings (principal)
CPT/HCPCS: 88175

== ENCOUNTER 2024-06-23 04:17 | Emergency (ER) | payer SELFPAY ==
[2024-06-23 04:20] VITALS: BP 131/90; PULSE 71; TEMP 36.7; O2SAT 100; BMI 31.8
[2024-06-23 04:32] VITALS: O2SAT 100
--- NOTE | 2024-06-23 04:36 | ED.ABDPAIN1 ---
Documented by User: Viridiana Glover MD 06/24/24 00:01 HPI - Abdominal Pain General Chief Complaint: Abdominal Pain Stated Complaint: ABDOMINAL PAIN Time Seen by Provider: 06/23/24 04:23 Source: patient Mode of arrival: walk-in Limitations: no limitations History of Present Illness HPI narrative: This 24-year-old female presents for evaluation of epigastric abdominal pain with mild nausea. The patient states that she is trying to quit smoking in the last night at work ate a lot of candy and before work had avocado toast for dinner. She states she has a history of gastritis and when she has a flare she takes baking soda in water. She states she has done this twice but it is not helping her. She is not having any chest pain or shortness of breath. She is uncertain whether she may be as she had unprotected intercourse with her boyfriend recently. She has some mild nausea but no vomiting or diarrhea. She has no lower abdominal pain. There is no radiation into her back. She denies a history of alcohol use. She has not had a fever. Related Data Previous Rx's ?Medication ?Instructions ?Recorded dicyclomine 20 mg tablet 20 mg PO QID PRN abdominal pain 06/23/24 #20 tabs Allergies Allergy/AdvReac Type Severity Reaction Status Date / Time No Known Drug Allergies Allergy Verified 06/23/24 21:58 Review of Systems ROS Status of ROS 10 or more systems reviewed and unremarkable except as noted in history and below [facility] Medical History (Updated 06/23/24 @ 10:04 by Christen Rodgers MD) Anxiety ?F41.9 - Anxiety disorder, unspecified (ICD-10) Surgical History (Updated 10/11/23 @ 21:00 by Brain Cruz) History of tonsillectomy and adenoidectomy ?Z90.89 - Acquired absence of other organs (ICD-10) Social History Smoking status: Current every day smoker Little interest or pleasure in doing things: not at all Feeling down, depressed, or hopeless: not at all Exam Narrative Exam Narrative: Vital signs and Nursing Notes reviewed: Patient is afebrile with a normal pulse, normal blood pressure, she is not hypoxic with pulse ox of 100% on room air General: Awake, alert, oriented, no acute distress, lying comfortably on the stretcher HEENT: Normocephalic atraumatic, mucous membranes are moist and pink, eyes are clear, normal conjunctiva, vision is grossly intact Neck: Supple Chest: Lungs are clear to auscultation with good air entry, there is no wheezing rhonchi or rales appreciated no accessory muscle use, patient is speaking in complete sentences-no chest wall tenderness to palpation CVS: Regular rate and rhythm S1-S2, no murmurs rubs or gallops, pulses are brisk and equal bilaterally ABD: Soft, epigastric and right upper quadrant tenderness to deep palpation, no pulsatile masses appreciated, there is no left upper quadrant or lower quadrant tenderness. Abdomen is nondistended with no rebound guarding or rigidity, bowel sounds are normal, no pulsatile masses appreciated Extremities: Moving all extremities, no lower extremity tenderness or swelling noted, negative Homans' sign, pulses are brisk and equal bilaterally Skin: Normal in appearance without rash,pallor, petechiae or purpura Neuro: No focal deficits Constitutional Vital Signs, click to edit/add: Last Vital Signs Temp 98.1 F 06/23/24 07:10 Pulse 72 06/23/24 07:10 Resp 16 06/23/24 07:10 BP 121/76 06/23/24 07:10 Pulse Ox 99 06/23/24 07:10 O2 Del Method Room Air 06/23/24 07:10 Course Vital Signs Vital signs: Vital Signs Temperature 98.0 F 06/23/24 04:20 Pulse Rate 71 06/23/24 04:20 Respiratory Rate 16 06/23/24 04:20 Blood Pressure 131/90 06/23/24 04:20 Pulse Oximetry 100 06/23/24 04:20 Oxygen Delivery Method Room Air 06/23/24 04:20 Temperature 98.1 F 06/23/24 07:10 Pulse Rate 72 06/23/24 07:10 Respiratory Rate 16 06/23/24 07:10 Blood Pressure 121/76 06/23/24 07:10 Pulse Oximetry 99 06/23/24 07:10 Oxygen Delivery Method Room Air 06/23/24 07:10 MDM - Abdominal Pain MDM Narrative Medical decision making narrative: This 24-year-old female presents for evaluation of epigastric abdominal pain. She has a history of GERD. She admits that she did not eat well yesterday as she is trying to quit smoking and ate a lot of snack food and avocado toast for dinner. She started having pain after work last night and took some baking soda with water. She states initially that helped her but then the pain recurred. She is uncertain if she may be . Her test was negative. Urine is negative. An IV was placed and she was medicated with IV fluids, Zofran, Pepcid, GI cocktail and Toradol after her test result came back. She has a normal white count and hemoglobin. Electrolytes are normal but she does have elevated AST and ALT. Alkaline phosphatase and lipase are normal. CT scan of the abdomen and pelvis was ordered. Lab Data Labs: Lab Results 06/23/24 06/23/24 Range/Units 04:40 04:46 WBC 8.0 (4.0-11.0) 10^3/uL RBC 4.71 (4.20-5.40) 10^6/uL Hgb 10.8 L (12.0-16.0) g/dL Hct 34.4 L (36.0-48.0) % MCV 73.0 L (81.0-99.0) fL MCH 22.9 L (26.7-34.0) pg MCHC 31.4 (29.9-35.2) g/dL RDW 16.6 H (11.0-15.0) % Plt Count 195 (150-450) 10^3/uL MPV 11.4 (9.5-13.5) fL Neut % (Auto) 66.1 (43.0-75.0) % Lymph % (Auto) 25.8 (20.5-60.0) % [place] % (Auto) 7.1 (1.7-12.0) % Eos % (Auto) 0.7 L (0.9-7.0) % Baso % (Auto) 0.2 (0.2-2.0) % Neut # (Auto) 5.3 (1.4-6.5) 10^3/uL Lymph # (Auto) 2.1 (1.2-3.8) 10^3/uL [place] # (Auto) 0.6 (0.3-0.8) 10^3/uL Eos # (Auto) 0.1 (0.0-0.7) 10^3/uL Baso # (Auto) 0.0 (0.0-0.1) 10^3/uL Abs Immat Gran (auto) 0.01 (0.00-0.03) 10^3/uL Imm/Tot Granulo (auto) 0.1 (0.0-0.5) % Sodium 142 (136-145) mmol/L Potassium 3.8 (3.5-5.1) mmol/L Chloride 103 (98-107) mmol/L Carbon Dioxide 29.6 (21.0-32.0) mmol/L Anion Gap 13.2 BUN 10.0 (7.0-18.0) mg/dL Creatinine 0.82 (0.55-1.02) mg/dL Est GFR ( Amer) >60 (>=60 mL/min/1.73m^2) Est GFR (Non-Af Amer) >60 (>=60 mL/min/1.73m^2) BUN/Creatinine Ratio 12.2 Glucose 119 H (74-106) mg/dL Calcium 9.2 (8.5-10.1) mg/dL Total Bilirubin 1.0 (0.2-1.0) mg/dL AST 232 H (15-37) U/L ALT 152 H (14-59) U/L Alkaline Phosphatase 93 (46-116) U/L Total Protein 7.1 (6.4-8.2) g/dL Albumin 3.2 L (3.4-5.0) g/dL Globulin 3.9 g/dL Albumin/Globulin Ratio 0.8 Lipase 30.0 (16.0-77.0) U/L Urine Color Dk. yellow (YELLOW) Urine Clarity Clear (CLEAR) Urine pH 7.0 (5.0-9.0) Ur Specific Dolph 1.020 (1.005-1.025) Urine Protein Trace (NEG/TRACE) mg/dL Urine Glucose (UA) Negative (NEGATIVE) mg/dL Urine Ketones Negative (NEGATIVE) mg/dL Urine Occult Blood Negative (NEGATIVE) Urine Nitrite Negative (NEGATIVE) Urine Bilirubin Small A (NEGATIVE) Urine Urobilinogen 2.0 A (0.2-1.0) EU/dL Ur Leukocyte Esterase Negative (NEGATIVE) Urine RBC 2-5 A (0-2) #/HPF Urine WBC 2-5 A (NONE SEEN) #/HPF Ur Squamous Epith Cells Few A (NONE/RARE) #/LPF Urine Crystals None seen (None Seen) #/HPF Urine Bacteria Small A (NONE SEEN) #/HPF Urine Casts None seen (NONE SEEN) #/LPF Urine Mucus Moderate A (NONE SEEN) Ur Culture Indicated? [place] [place] Urine HCG, Qual Negative (NEGATIVE) Discharge Plan Discharge Chief Complaint: Abdominal Pain Clinical Impression: Abdominal pain, Biliary anomaly Patient Disposition: Home, Self-Care Time of Disposition Decision: 10:04 Condition: Good Prescriptions / Home Meds: New dicyclomine 20 mg tablet 20 mg PO QID PRN (Reason: abdominal pain) Qty: 20 0RF Print Language: Panamanian Instructions: Low Fat Diet (ED) Referrals: LA NENA MOSELEY [Primary Care Provider] - 1 week JAMES MONTANO [Physician] - As soon as possible ([phone] [facility] [address] [place] [address]) Discharge Date/Time: 06/23/24 10:22 Documented by User: Christen Rodgers MD 06/23/24 10:51 HPI - Abdominal Pain General Chief Complaint: Abdominal Pain Stated Complaint: ABDOMINAL PAIN Time Seen by Provider: 06/23/24 04:23 Related Data Previous Rx's ?Medication ?Instructions ?Recorded dicyclomine 20 mg tablet 20 mg PO QID PRN abdominal pain 06/23/24 #20 tabs Allergies Allergy/AdvReac Type Severity Reaction Status Date / Time No Known Drug Allergies Allergy Verified 06/23/24 21:58 PFSH PFSH Medical History (Updated 06/23/24 @ 10:04 by Christen Rodgers MD) Anxiety ?F41.9 - Anxiety disorder, unspecified (ICD-10) Surgical History (Updated 10/11/23 @ 21:00 by Brain Cruz) History of tonsillectomy and adenoidectomy ?Z90.89 - Acquired absence of other organs (ICD-10) Social History Smoking status: Current every day smoker Little interest or pleasure in doing things: not at all Feeling down, depressed, or hopeless: not at all Exam Constitutional Vital Signs, click to edit/add: Last Vital Signs Temp 98.1 F 06/23/24 07:10 Pulse 72 06/23/24 07:10 Resp 16 06/23/24 07:10 BP 121/76 06/23/24 07:10 Pulse Ox 99 06/23/24 07:10 O2 Del Method Room Air 06/23/24 07:10 Course Vital Signs Vital signs: Vital Signs Temperature 98.0 F 06/23/24 04:20 Pulse Rate 71 06/23/24 04:20 Respiratory Rate 16 06/23/24 04:20 Blood Pressure 131/90 06/23/24 04:20 Pulse Oximetry 100 06/23/24 04:20 Oxygen Delivery Method Room Air 06/23/24 04:20 Temperature 98.1 F 06/23/24 07:10 Pulse Rate 72 06/23/24 07:10 Respiratory Rate 16 06/23/24 07:10 Blood Pressure 121/76 06/23/24 07:10 Pulse Oximetry 99 06/23/24 07:10 Oxygen Delivery Method Room Air 06/23/24 07:10 MDM - Abdominal Pain MDM Narrative Medical decision making narrative: This 24-year-old female presents for evaluation of epigastric abdominal pain. She has a history of GERD. She admits that she did not eat well yesterday as she is trying to quit smoking and ate a lot of snack food and avocado toast for dinner. She started having pain after work last night and took some baking soda with water. She states initially that helped her but then the pain recurred. She is uncertain if she may be . Her test was negative. Urine is negative. An IV was placed and she was medicated with IV fluids, Zofran, Pepcid, GI cocktail and Toradol after her test result came back. She has a normal white count and hemoglobin. Electrolytes are normal but she does have elevated AST and ALT. Alkaline phosphatase and lipase are normal. CT scan of the abdomen and pelvis was ordered. Dr Rodgers : The patient care transferred to ne at 7 AM awaiting the results of the CAT scan She did complain of abdominal pain and provided with morphine for pain The patient CAT scan showed that the patient have possibly acute cholecystitis and ultrasound of the gallbladder ordered Ultrasound of the gallbladder did not show any signs of acute acute cystitis but the patient does have dilation of the biliary duct There is no elevation of bilirubin or alk phos and the patient does not have any intrahepatic bile duct dilation The patient case discussed with in general surgery service in [facility] and his instruction was that the patient will be on low-fat diet and will follow-up with him as outpatient Patient had no complaint before getting discharged she was feeling much better after initial treatment Patient discharged home with Bentyl for pain in addition to follow-up with outpatient with instruction to come back in case of any increasing pain The patient is to follow up with primary care physician in next 2-3 days or to return to the emergency department should any of the signs or symptoms worsen or new symptoms develop. The patient agrees with the following Diagnosis and Treatment plan and the patient will be discharged home. Lab Data Labs: Lab Results 06/23/24 06/23/24 Range/Units 04:40 04:46 WBC 8.0 (4.0-11.0) 10^3/uL RBC 4.71 (4.20-5.40) 10^6/uL Hgb 10.8 L (12.0-16.0) g/dL Hct 34.4 L (36.0-48.0) % MCV 73.0 L (81.0-99.0) fL MCH 22.9 L (26.7-34.0) pg MCHC 31.4 (29.9-35.2) g/dL RDW 16.6 H (11.0-15.0) % Plt Count 195 (150-450) 10^3/uL MPV 11.4 (9.5-13.5) fL Neut % (Auto) 66.1 (43.0-75.0) % Lymph % (Auto) 25.8 (20.5-60.0) % [place] % (Auto) 7.1 (1.7-12.0) % Eos % (Auto) 0.7 L (0.9-7.0) % Baso % (Auto) 0.2 (0.2-2.0) % Neut # (Auto) 5.3 (1.4-6.5) 10^3/uL Lymph # (Auto) 2.1 (1.2-3.8) 10^3/uL [place] # (Auto) 0.6 (0.3-0.8) 10^3/uL Eos # (Auto) 0.1 (0.0-0.7) 10^3/uL Baso # (Auto) 0.0 (0.0-0.1) 10^3/uL Abs Immat Gran (auto) 0.01 (0.00-0.03) 10^3/uL Imm/Tot Granulo (auto) 0.1 (0.0-0.5) % Sodium 142 (136-145) mmol/L Potassium 3.8 (3.5-5.1) mmol/L Chloride 103 (98-107) mmol/L Carbon Dioxide 29.6 (21.0-32.0) mmol/L Anion Gap 13.2 BUN 10.0 (7.0-18.0) mg/dL Creatinine 0.82 (0.55-1.02) mg/dL Est GFR ( Amer) >60 (>=60 mL/min/1.73m^2) Est GFR (Non-Af Amer) >60 (>=60 mL/min/1.73m^2) BUN/Creatinine Ratio 12.2 Glucose 119 H (74-106) mg/dL Calcium 9.2 (8.5-10.1) mg/dL Total Bilirubin 1.0 (0.2-1.0) mg/dL AST 232 H (15-37) U/L ALT 152 H (14-59) U/L Alkaline Phosphatase 93 (46-116) U/L Total Protein 7.1 (6.4-8.2) g/dL Albumin 3.2 L (3.4-5.0) g/dL Globulin 3.9 g/dL Albumin/Globulin Ratio 0.8 Lipase 30.0 (16.0-77.0) U/L Urine Color Dk. yellow (YELLOW) Urine Clarity Clear (CLEAR) Urine pH 7.0 (5.0-9.0) Ur Specific [place]olph 1.020 (1.005-1.025) Urine Protein Trace (NEG/TRACE) mg/dL Urine Glucose (UA) Negative (NEGATIVE) mg/dL Urine Ketones Negative (NEGATIVE) mg/dL Urine Occult Blood Negative (NEGATIVE) Urine Nitrite Negative (NEGATIVE) Urine Bilirubin Small A (NEGATIVE) Urine Urobilinogen 2.0 A (0.2-1.0) EU/dL Ur Leukocyte Esterase Negative (NEGATIVE) Urine RBC 2-5 A (0-2) #/HPF Urine WBC 2-5 A (NONE SEEN) #/HPF Ur Squamous Epith Cells Few A (NONE/RARE) #/LPF Urine Crystals None seen (None Seen) #/HPF Urine Bacteria Small A (NONE SEEN) #/HPF Urine Casts None seen (NONE SEEN) #/LPF Urine Mucus Moderate A (NONE SEEN) Ur Culture Indicated? [place] [place] U[place] HCG, Qual Negative (NEGATIVE) Discharge Plan Discharge Chief Complaint: Abdominal Pain Clinical Impression: Abdominal pain, Biliary anomaly Patient Disposition: Home, Self-Care Time of Disposition Decision: 10:04 Condition: Good Prescriptions / Home Meds: New dicyclomine 20 mg tablet 20 mg PO QID PRN (Reason: abdominal pain) Qty: 20 0RF Print Language: Panamanian Instructions: Low Fat Diet (ED) Referrals: LA NENA MOSELEY [Primary Care Provider] - 1 week JAMES MONTANO [Physician] - As soon as possible ([phone] [facility] [address] [place] [id number]) Discharge Date/Time: 06/23/24 10:22
[2024-06-23 04:51] LABS: Basophils Percent Auto 0.2 % (0.2-2.0); Eosinophils Absolute Auto 0.1 10^3/uL (0.0-0.7); Eosinophils Percent Auto 0.7 % (0.9-7.0); Hematocrit 34.4 % (36.0-48.0); Hemoglobin 10.8 g/dL (12.0-16.0); Immature Granulocytes Abs Auto 0.01 10^3/uL (0.00-0.03); Immature Granulocytes Pct Auto 0.1 % (0.0-0.5); Lymphocytes Absolute Auto 2.1 10^3/uL (1.2-3.8); Lymphocytes Percent Auto 25.8 % (20.5-60.0); Mean Corpuscular HGB Conc 31.4 g/dL (29.9-35.2); Mean Corpuscular Hemoglobin 22.9 pg (26.7-34.0); Mean Platelet Volume 11.4 fL (9.5-13.5); Monocytes Absolute Auto 0.6 10^3/uL (0.3-0.8); Monocytes Percent Auto 7.1 % (1.7-12.0); Neutrophils Absolute Auto 5.3 10^3/uL (1.4-6.5); Neutrophils Percent Auto 66.1 % (43.0-75.0); Platelet Count 195 10^3/uL (150-450); Red Blood Count 4.71 10^6/uL (4.20-5.40); Red Cell Distribution Width 16.6 % (11.0-15.0)
[2024-06-23 04:52] LABS: Bilirubin Urine SMALL (NEGATIVE); Blood Urine NEGATIVE (NEGATIVE); Clarity Urine CLEAR (CLEAR); Color Urine DK. YELLOW (YELLOW); Glucose Urine UA NEGATIVE (NEGATIVE); Ketones Urine NEGATIVE (NEGATIVE); Leukocyte Esterase Urine NEGATIVE (NEGATIVE); Nitrite Urine NEGATIVE (NEGATIVE); Protein Urine TRACE mg/dL (NEG/TRACE)
[2024-06-23] MEDS: ONDANSETRON PF 4 MG/2 ML VIAL IV (04:55)
[2024-06-23] MEDS: FAMOTIDINE/PF 20 MG/2 ML VIAL IV (04:55)
[2024-06-23] MEDS: lidocaine HCL 15 ML, MAG HYDROX/ALUMINUM HYD/SIMETH 30 ML, HYOSCYAMINE SULFATE 0.25 MG PO (04:56)
[2024-06-23 05:00] LABS: Bacteria Urine SMALL #/HPF (NONE SEEN); Cast Seen? NONE SEEN #/LPF (NONE SEEN); Crystals Seen? None Seen #/HPF (None Seen); Mucus Urine MODERATE (NONE SEEN); Squamous Epithelial Cell Urine FEW #/LPF (NONE/RARE); Urine Culture Indicated YES-FRMC
[2024-06-23 05:07] LABS: Alanine Aminotransferase 152 U/L (14-59); Albumin Globulin Ratio 0.8; Albumin Level 3.2 g/dL (3.4-5.0); Alkaline Phosphatase 93 U/L (46-116); Anion Gap 13.2; Aspartate Amino Transferase 232 U/L (15-37); BUN Creatinine Ratio 12.2; Calcium 9.2 mg/dL (8.5-10.1); Carbon Dioxide 29.6 mmol/L (21.0-32.0); Chloride 103 mmol/L (98-107); Estimated GFR (African America >60 (>=60 mL/min/1.73m^2); Estimated GFR (Non-African Ame >60 (>=60 mL/min/1.73m^2); Globulin 3.9 g/dL; Glucose 119 mg/dL (74-106); Potassium 3.8 mmol/L (3.5-5.1); Sodium 142 mmol/L (136-145); Total Protein 7.1 g/dL (6.4-8.2)
[2024-06-23 05:19] LABS: HCG Qualitative Urine* NEGATIVE (NEGATIVE); Internal Control Within Normal Limits
[2024-06-23] MEDS: KETOROLAC TROMETHAMINE 30 MG/ML VIAL IVP (05:24)
[2024-06-23 07:10] VITALS: BP 121/76; PULSE 72; TEMP 36.7; O2SAT 99
[2024-06-23] MEDS: MORPHINE SULFATE 2 MG/ML SYRINGE 1 MG IV (08:41)
== END 2024-06-23 10:22 | disposition home or self-care (01) ==
PROVIDERS: Emergency Provider Emergency Medicine; PCP Family Medicine
DX: R10.13 Epigastric pain (principal); Q44.5 Other congenital malformations of bile ducts; F17.200 Nicotine dependence, unspecified, uncomplicated; K21.9 Gastro-esophageal reflux disease without esophagitis; K80.20 Calculus of gallbladder without cholecystitis without obstruction; K83.8 Other specified diseases of biliary tract
CPT/HCPCS: 36415; 74177; 76705; 80053; 81001; 83690; 84703; 85025; 87086; 96374; 96375; 99285; J1885; J2270; J2405; J3490; Q9967

== ENCOUNTER 2024-06-23 21:48 | Emergency (ER) | payer SELFPAY ==
[2024-06-23 21:53] VITALS: BP 145/90; PULSE 86; TEMP 36.9; O2SAT 100; BMI 31.8
--- NOTE | 2024-06-23 22:41 | ED_ITS ---
HPI - Abdominal Pain General Chief Complaint: Abdominal Pain Stated Complaint: GALLBLADDER PAIN-WAS HERE EARLIER TODAY Time Seen by Provider: 06/23/24 21:57 Source: patient Mode of arrival: walk-in Limitations: no limitations History of Present Illness HPI narrative: This 24-year-old female who is seen by myself earlier this morning presents for evaluation of ongoing epigastric and right upper quadrant abdominal pain. She was diagnosed with gallstones this morning. Her ultrasound showed a common bile duct as well. She states that she has return of her pain and nausea and it is uncontrollable. She has not had a fever. She is not . A test was performed earlier today and was negative. Related Data Previous Rx's ?Medication ?Instructions ?Recorded dicyclomine 20 mg tablet 20 mg PO QID PRN abdominal pain 06/23/24 #20 tabs Allergies Allergy/AdvReac Type Severity Reaction Status Date / Time No Known Drug Allergies Allergy Verified 06/23/24 21:58 Review of Systems ROS Status of ROS 10 or more systems reviewed and unremark able except as noted in history and below PFSH [facility] Medical History (Updated 06/24/24 @ 00:13 by Viridiana Glover MD) Anxiety ?F41.9 - Anxiety disorder, unspecified (ICD-10) Surgical History (Updated 10/11/23 @ 21:00 by Brain Cruz) History of tonsillectomy and adenoidectomy ?Z90.89 - Acquired absence of other organs (ICD-10) Social History Smoking status: Current every day smoker Little interest or pleasure in doing things: not at all Feeling down, depressed, or hopeless: not at all Exam Narrative Exam Narrative: Vital signs and Nursing Notes reviewed: Patient is afebrile with a normal pulse, blood pressure is elevated 145/90, she is not hypoxic with pulse ox of 100% on room air General: Awake, alert, oriented, nontoxic but uncomfortable appearing female, she is sitting upright and rocking back and forth on the bed, no respiratory distress, no active vomiting HEENT: Normocephalic atraumatic, mucous membranes are moist and pink, eyes are clear, normal conjunctiva, vision is grossly intact Chest: Lungs are clear to auscultation with good air entry, there is no wheezing rhonchi or rales appreciated no accessory muscle use, patient is speaking in complete sentences-no chest wall tenderness to palpation CVS: Regular rate and rhythm S1-S2, no murmurs rubs or gallops, pulses are brisk and equal bilaterally ABD: Soft, nondistended, fullness and tenderness in the right upper quadrant and epigastrium. The remainder of the abdomen is obese soft nondistended with no rebound guarding rigidity Extremities: Moving all extremities, no lower extremity tenderness or swelling noted, negative Homans' sign, pulses are brisk and equal bilaterally Skin: Normal in appearance without rash,pallor, petechiae or purpura Neuro: No focal deficits Constitutional Vital Signs, click to edit/add: Last Vital Signs Temp 98.4 F 06/23/24 21:53 Pulse 86 06/23/24 21:53 Resp 18 06/23/24 21:53 BP 145/90 H 06/23/24 21:53 Pulse Ox 100 06/23/24 21:53 O2 Del Method Room Air 06/23/24 21:53 Course Vital Signs Vital signs: Vital Signs Temperature 98.4 F 06/23/24 21:53 Pulse Rate 86 06/23/24 21:53 Respiratory Rate 18 06/23/24 21:53 Blood Pressure 145/90 H 06/23/24 21:53 Pulse Oximetry 100 06/23/24 21:53 Oxygen Delivery Method Room Air 06/23/24 21:53 Temperature 98.4 F 06/23/24 21:53 Pulse Rate 86 06/23/24 21:53 Respiratory Rate 18 06/23/24 21:53 Blood Pressure 145/90 H 06/23/24 21:53 Pulse Oximetry 100 06/23/24 21:53 Oxygen Delivery Method Room Air 06/23/24 21:53 MDM - Abdominal Pain MDM Narrative Medical decision making narrative: This 24-year-old female who was seen by myself in the morning of 06/23/2024 for epigastric and right upper quadrant abdominal pain and had labs that were orde red that showed an elevated AST and ALT as well as a CT scan of the abdomen pelvis that showed distended gallbladder up to 12 cm with calculi or sludge layering in the lumen and possible biliary ductal dilatation and had a follow-up ultrasound that showed a distended gallbladder with cholelithiasis without wall thickening or pericholecystic fluid with a common bile duct measuring up to 8.7 mm in diameter presents for evaluation of ongoing recurrent pain after having just a light meal earlier in the day. She is tender in the right upper quadrant and epigastrium. An IV was placed and she was medicated with IV fluid Zofran and morphine. Labs were repeated. She has a normal white count at 6.2 and her hemoglobin has not changed. She has normal electrolytes but her AST, ALT alkaline phosphatase and total bilirubin have markedly elevated since yesterday morning. This is indicative of acute choledocholithiasis. The patient will require timely cholecystectomy. The case was discussed with Dr. Sahni, surgeon at [facility], he agreed to see the patient for a cholecystectomy later today. There are no inpatient beds available at [facility] at this time and the patient will be held in the emergency department until she can be transferred to the ambulatory surgery unit later this morning. This was discussed with the patient who verbalized understanding and is in agreement with this plan. No antibiotics were recommended due to the fact that she does not have a fever and has a normal white count. N.p.o. status was discussed with the patient and she will be maintained here until later this morning when a bed is available at the ambulatory surgery unit for transfer to that unit at [facility] Medical Records Attestation: I reviewed the patient's medical records. Medical records narrative: CT scan of the abdomen pelvis performed on 06/23/2024 shows a distended gallbladder up to 12 cm with calculi or sludge layering in the lumen with possible biliary ductal dilatation with the common bile duct measuring up to 6 mm with mild prominence of the intrahepatic bile ducts with normal background liver parenchyma. The pancreas spleen adrenal glands kidneys reproductive glands GI and bowel were normal. It was normal appendix, normal peritoneum normal vasculature and normal lymph nodes. Ultrasound was ordered as well that showed a distended gallbladder with cholelithiasis without wall thickening or pericholecystic fluid. The common bile duct measured 8.7 mm Lab Data Attestation: I reviewed the patient's lab results. Labs: Lab Results 06/23/24 Range/Units 22:46 WBC 6.2 (4.0-11.0) 10^3/uL RBC 4.65 (4.20-5.40) 10^6/uL Hgb 10.5 L (12.0-16.0) g/dL Hct 33.6 L (36.0-48.0) % MCV 72.3 L (81.0-99.0) fL MCH 22.6 L (26.7-34.0) pg MCHC 31.3 (29.9-35.2) g/dL RDW 16.8 H (11.0-15.0) % Plt Count 200 (150-450) 10^3/uL MPV 11.6 (9.5-13.5) fL Neut % (Auto) 64.6 (43.0-75.0) % Lymph % (Auto) 25.5 (20.5-60.0) % [facility] % (Auto) 8.5 (1.7-12.0) % Eos % (Auto) 0.7 L (0.9-7.0) % Baso % (Auto) 0.5 (0.2-2.0) % Neut # (Auto) 4.0 (1.4-6.5) 10^3/uL Lymph # (Auto) 1.6 (1.2-3.8) 10^3/uL [facility] # (Auto) 0.5 (0.3-0.8) 10^3/uL Eos # (Auto) 0.0 (0.0-0.7) 10^3/uL Baso # (Auto) 0.0 (0.0-0.1) 10^3/uL Abs Immat Gran (auto) 0.01 (0.00-0.03) 10^3/uL Imm/Tot Granulo (auto) 0.2 (0.0-0.5) % Sodium 140 (136-145) mmol/L Potassium 3.9 (3.5-5.1) mmol/L Chloride 102 (98-107) mmol/L Carbon Dioxide 28.5 (21.0-32.0) mmol/L Anion Gap 13.4 BUN 8.0 (7.0-18.0) mg/dL Creatinine 0.84 (0.55-1.02) mg/dL Est GFR ( Amer) >60 (>=60 mL/min/1.73m^2) Est GFR (Non-Af Amer) >60 (>=60 mL/min/1.73m^2) BUN/Creatinine Ratio 9.5 Glucose 96 (74-106) mg/dL Calcium 9.0 (8.5-10.1) mg/dL Total Bilirubin 2.7 H (0.2-1.0) mg/dL AST 309 H (15-37) U/L ALT 330 H (14-59) U/L Alkaline Phosphatase 131 H (46-116) U/L Total Protein 6.8 (6.4-8.2) g/dL Albumin 3.1 L (3.4-5.0) g/dL Globulin 3.7 g/dL Albumin/Globulin Ratio 0.8 Lipase 30.0 (16.0-77.0) U/L Discharge Plan Discharge Chief Complaint: Abdominal Pain Clinical Impression: Choledocholithiasis with acute cholecystitis Patient Disposition: [facility] Time of Disposition Decision: 00:13 Condition: Good
[2024-06-23 22:52] LABS: Basophils Percent Auto 0.5 % (0.2-2.0); Eosinophils Percent Auto 0.7 % (0.9-7.0); Hematocrit 33.6 % (36.0-48.0); Hemoglobin 10.5 g/dL (12.0-16.0); Immature Granulocytes Abs Auto 0.01 10^3/uL (0.00-0.03); Immature Granulocytes Pct Auto 0.2 % (0.0-0.5); Lymphocytes Absolute Auto 1.6 10^3/uL (1.2-3.8); Lymphocytes Percent Auto 25.5 % (20.5-60.0); Mean Corpuscular HGB Conc 31.3 g/dL (29.9-35.2); Mean Corpuscular Hemoglobin 22.6 pg (26.7-34.0); Mean Corpuscular Volume 72.3 fL (81.0-99.0); Mean Platelet Volume 11.6 fL (9.5-13.5); Monocytes Absolute Auto 0.5 10^3/uL (0.3-0.8); Monocytes Percent Auto 8.5 % (1.7-12.0); Neutrophils Percent Auto 64.6 % (43.0-75.0); Platelet Count 200 10^3/uL (150-450); Red Blood Count 4.65 10^6/uL (4.20-5.40); Red Cell Distribution Width 16.8 % (11.0-15.0); White Blood Count 6.2 10^3/uL (4.0-11.0)
[2024-06-23] MEDS: FAMOTIDINE/PF 20 MG/2 ML VIAL IV (23:00)
[2024-06-23] MEDS: MORPHINE SULFATE 4 MG/ML VIAL IV (23:00)
[2024-06-23] MEDS: 0.9 % SODIUM CHLORIDE 1,000 ML 1000 ML IV (23:00)
[2024-06-23] MEDS: ONDANSETRON PF 4 MG/2 ML VIAL IV (23:00)
[2024-06-23 23:16] LABS: Alanine Aminotransferase 330 U/L (14-59); Albumin Globulin Ratio 0.8; Albumin Level 3.1 g/dL (3.4-5.0); Alkaline Phosphatase 131 U/L (46-116); Anion Gap 13.4; Aspartate Amino Transferase 309 U/L (15-37); BUN Creatinine Ratio 9.5; Bilirubin Total 2.7 mg/dL (0.2-1.0); Carbon Dioxide 28.5 mmol/L (21.0-32.0); Chloride 102 mmol/L (98-107); Estimated GFR (African America >60 (>=60 mL/min/1.73m^2); Estimated GFR (Non-African Ame >60 (>=60 mL/min/1.73m^2); Globulin 3.7 g/dL; Glucose 96 mg/dL (74-106); Potassium 3.9 mmol/L (3.5-5.1); Sodium 140 mmol/L (136-145); Total Protein 6.8 g/dL (6.4-8.2)
[2024-06-24] MEDS: 0.9 % SODIUM CHLORIDE 1,000 ML 125 ML IV (00:29)
== END 2024-06-24 06:52 | disposition short-term general hospital (02) ==
PROVIDERS: Emergency Provider Emergency Medicine; PCP Family Medicine
DX: K80.42 Calculus of bile duct with acute cholecystitis without obstruction (principal); F17.200 Nicotine dependence, unspecified, uncomplicated
CPT/HCPCS: 36415; 80053; 83690; 85025; 96374; 96375; 99285; J2270; J2405; J3490

== ENCOUNTER 2024-06-28 12:35 | Emergency (ER) | payer SELFPAY ==
[2024-06-28 12:39] VITALS: BP 128/84; PULSE 98; TEMP 36.6; O2SAT 98; BMI 31.6
--- NOTE | 2024-06-28 12:59 | ED_ITS ---
HPI - Allergic Reaction General Chief complaint: Allergic Reaction Stated complaint: RASH Time Seen by Provider: 06/28/24 12:56 Mode of arrival: walk-in History of Present Illness HPI narrative: The patient is 24-year-old female is coming to the ER after she had developed a rash, the patient developed a rash after she had recent laparoscopic surgery almost 4 days ago, this started next day after the surgery The rash is limited to the anterior abdomen, there is no other complaint fever chills or any other concerns She did take some Benadryl over the last 2 days with no improvement Related Data Previous Rx's ?Medication ?Instructions ?Recorded diphenhydramine HCl 25 mg capsule 25 mg PO TID #10 cap s 06/28/24 (Benadryl) famotidine 20 mg tablet (Pepcid) 20 mg PO BID #10 tabs 06/28/24 prednisone 20 mg tablet 40 mg (2 x 20 mg) PO DAILY 5 days 06/28/24 #10 tabs Allergies Allergy/AdvReac Type Severity Reaction Status Date / Time No Known Drug Allergies Allergy Verified 06/28/24 12:39 Review of Systems ROS Status of ROS 10 or more systems reviewed and unremark able except as noted in history and below PFSH PFSH Medical History (Updated 06/28/24 @ 13:09 by Christen Rodgers MD) Anxiety ?F41.9 - Anxiety disorder, unspecified (ICD-10) Surgical History (Updated 10/11/23 @ 21:00 by Brain Cruz) History of tonsillectomy and adenoidectomy ?Z90.89 - Acquired absence of other organs (ICD-10) Social History Smoking status: Current every day smoker Little interest or pleasure in doing things: not at all Feeling down, depressed, or hopeless: not at all Exam Narrative Exam Narrative: Nurses notes and vital signs reviewed and patient is not hypoxic. General: Well-appearing and in no apparent distress. Skin: The patient have a maculopapular rash surrounding the area around the wound of the laparoscopic surgery that are healing well with no signs of infection, the patient have no rash in the upper or lower extremity or the upper chest or posterior chest Head: Normocephalic, atraumatic. Neck: Supple, non-tender. Eye: Pupils are equal, round and EOMI. No scleral icterus. Ears, Nose, Mouth, and Throat: TM are clear, no nasal mucosal hypertrophy. Oral mucosa is moist, no posterior oropharynx erythema, uvula is mid-line Cardiovascular: Regular Rate and Rhythm without murmur, gallop or rub. Respiratory: No accessory muscle use or respiratory distress. Lungs are clear to auscultation, no wheezing, rales or rhonchi Chest Wall: no tenderness Back: No midline thoracic or lumbar vertebral tenderness. No CVA tenderness Musculoskeletal: normal ROM, no calf or popliteal tenderness, no lower extremi ty edema/swelling GI: Abdomen is soft, non-distended. Normal bowel sounds. Rash as mentioned above Neurological: A&O x4. No cranial nerve dysfunction observed. No truncal ataxia. Moves all extremities. Sensation intact. Psychiatric: Cooperative and interactive. Normal mood and affect. Constitutional Vital Signs, click to edit/add: Last Vital Signs Temp 97.8 F 06/28/24 12:39 Pulse 98 H 06/28/24 12:39 Resp 20 06/28/24 12:39 BP 128/84 06/28/24 12:39 Pulse Ox 98 06/28/24 12:39 Course Vital Signs Vital signs: Vital Signs Temperature 97.8 F 06/28/24 12:39 Pulse Rate 98 H 06/28/24 12:39 Respiratory Rate 20 06/28/24 12:39 Blood Pressure 128/84 06/28/24 12:39 Pulse Oximetry 98 06/28/24 12:39 Temperature 97.8 F 06/28/24 12:39 Pulse Rate 98 H 06/28/24 12:39 Respiratory Rate 20 06/28/24 12:39 Blood Pressure 128/84 06/28/24 12:39 Pulse Oximetry 98 06/28/24 12:39 MDM - Allergic Reaction MDM Narrative Medical decision making narrative: The patient presented to us with a allergic reaction mostly and she will be treated with prednisone and continue Benadryl every 8 hours in addition to Pepcid Patient instructed about monitoring for any fever chills or any other concerns The patient is to follow up with primary care physician in next 2-3 days or to return to the emergency department should any of the signs or symptoms worsen or new symptoms develop. The patient agrees with the following Diagnosis and Treatment plan and the patient will be discharged home. Discharge Plan Discharge Chief Complaint: Allergic Reaction Clinical Impression: Allergic reaction Patient Disposition: Home, Self-Care Time of Disposition Decision: 13:09 Condition: Good Prescriptions / Home Meds: New famotidine [Pepcid] 20 mg tablet 20 mg PO BID Qty: 10 0RF prednisone 20 mg tablet 40 mg PO DAILY 5 Days Qty: 10 0RF diphenhydramine HCl [Benadryl] 25 mg capsule 25 mg PO TID Qty: 10 0RF Print Language: Citizen Of [place] Instructions: General Allergic Reaction (ED) Referrals: LA NENA MOSELEY [Primary Care Provider, Family Practice] - 1 week Discharge Date/Time: 06/28/24 13:27
[2024-06-28] MEDS: FAMOTIDINE 20 MG TABLET PO (13:23)
[2024-06-28] MEDS: PREDNISONE 20 MG TABLET 40 MG PO (13:24)
== END 2024-06-28 13:27 | disposition home or self-care (01) ==
PROVIDERS: Emergency Provider Emergency Medicine; PCP Family Medicine
DX: T78.40XA Allergy, unspecified, initial encounter (principal); F17.200 Nicotine dependence, unspecified, uncomplicated; Z98.890 Other specified postprocedural states
CPT/HCPCS: 99283; J7512

== ENCOUNTER 2024-12-08 22:26 | Emergency (ER) | payer SELFPAY ==
--- OUTSIDE RECORDS SUMMARY | 2024-12-08 22:38 | XMS_ITS | CCD ---
Author Organization [facility] Inform ion Partnership [facility] Care Team Providers Care Alarm Field Technician Name Role Phone KARON, DR BRODY Penaloza Admitting Unavailable KARON, DR BRODY Penaloza Consulting Tee BRANTLEY, DR BRODY Penaloza Attending Tee MOSELEY, DR DEUTSCH Primary Care Unavailable MARIO ., DR WATT Admitting Unavailable MARIO ., DR WATT Attending Yesy Mason Consulting Tee MOSELEY, DR DEUTSCH Primary Care Unavailable MARIO ., DR WATT Consulting Unavailable Rhea Hood Unavailable MICHELE MARTIN Attending Unavailable MICHELE MARTIN Attending Unavailable Zoltan Moseley MD Primary Care Provider Viridiana Glover DO Attending Provider ZOLTAN MOSELEY Primary Care Physician Viridiana Glover Attending Unavailable Viridiana Glover Admitting Unavailable Yordan Carr Attending Yordan Cosme Admitting Unavailmaria m contreras Allergies Allergy Classification Reported Allergen(s) Allergy Type Date of Onset Reaction(s) Facility (1 source) No Known Medication Allergies; Translations: [No Known Medication Allergies] Propensity to adverse reactions (disorder) [facility] Repository Medications Current Medications Medication Drug Class(es) Dates Sig (Normalized) Sig (Original) acetaminophen 500 mg oral tablet (1 source) Start: 06-24-2024 End: 06-29-2024 take 1 tablet by mouth every six hours Tylenol Extra Strength 500 mg oral tablet 500 mg = 1 tab(s), Oral, q6hr, X 5 day(s), # 20 tab(s), Refills(s) 0, Pharmacy: [id number], 171, cm, 06/24/24 8:07:00 EDT, Height/Length Dosing, 84.9, kg, 06/24/24 8:07:00 EDT, Weight Dosing Start Date: 06/24/24 Stop Date: 06/29/24 Status: Ordered Quantity: 20.0 Unit: tab(s) Repeat number: 1 amoxicillin 875 mg / clavulanate 125 mg oral tablet (1 source) Penicillin-class Antibacterial Start: 02-24-2024 take 1 tablet by mouth every twelve hours Amoxicillin-Pot Clavulanate 875-125 mg tablet Active 1 TAB PO Every 12 hours 15 12February 24, 2024 1:00am Drospirenone-Ethinyl Estradiol (4 sources) Progestin, Estrogen Start: 10-26-2023 Drospirenone-Ethi nyl Estradiol (Katie) 3-0.03 mg tablet Active TAB PO October 26, 2023 12:00am Start: 11-07-2022 drospirenone-e thinyl estradiol (Ocella) 3-0.03 MG tablet Indications: Uses control Take 1 tablet by mouth 1 (one) time each day at the same time. 90 tablet 3 11/07/2022 Active fluconazole 150 mg oral tablet (2 sources) Azole Antifungal Start: 11-12-2023 End: 11-12-2023 take 1 tablet by mouth once, then take 1 tablet by mouth once fluconazole (Diflucan) 150 MG tablet Indications: Yeast infection Take 1 tablet (150 mg) by mouth 1 (one) time for 1 dose This is a 1 time dose, take single tablet by mouth. 1 tablet 1 11/12/2023 11/12/2023 Active hydrocortisone 10 mg/ml / neomycin 3.5 mg/ml / polymyxin b 71571 unt/ml otic solution (1 source) Aminoglycoside Antibacterial, Polymyxin-class Antibacterial, Corticosteroid Start: 03-20-2022 Neomycin-Polymyxi n-HC [id number] 4 drops into affected ear Otic Three times a day for 7 day(s) Feb, Active ibuprofen 400 mg oral tablet (1 source) Nonsteroidal Anti-inflammatory Drug Start: 06-24-2024 End: 06-29-2024 take 1 tablet by mouth every six hours ibuprofen 400 mg Tab 400 mg = 1 tab(s), Oral, q6hr, X 5 day(s), # 20 tab(s), Refills(s) 0, Pharmacy: [id number], 171, cm, 06/24/24 8:07:00 EDT, Height/Length Dosing, 84.9, kg, 06/24/24 8:07:00 EDT, Weight Dosing Start Date: 06/24/24 Stop Date: 06/29/24 Status: Ordered Quantity: 20.0 Unit: tab(s) Repeat number: 1 [facility] [place] (1 source) Start: 06-24-2024 Misc Prescription Start Date: 06/24/24 Status: Ordered Repeat number: 1 oxyCODONE hydrochloride 5 mg oral tablet (1 source) Opioid Agonist Start: 06-24-2024 End: 06-27-2024 take 2.5 mg by mouth every six hours as needed for pain oxyCODONE 5 mg Tab 2.5 mg = 0.5 tab(s), Oral, q6hr, PRN for pain, X 3 day(s), # 6 tab(s), Refills(s) 0, Pharmacy: [id number], 171, cm, 06/24/24 8:07:00 EDT, Height/Length Dosing, 84.9, kg, 06/24/24 8:07:00 EDT, Weight Dosing Start Date: 06/24/24 Stop Date: 06/27/24 Status: Ordered Quantity: 6.0 Unit: tab(s) Repeat number: 1 Completed/Discontinued Medications Medication Drug Class(es) Dates Sig (Normalized) Sig (Original) amoxicillin 875 mg oral tablet (1 source) Penicillin-class Antibacterial Start: 03-02-19 take 1 tablet by mouth every twelve hours Amoxicillin 875 MG 1 tablet Orally every 12 hrs for 7 days Feb, Not-Taking benzocaine 15 mg / menthol 2.6 mg oral lozenge (1 source) Standardized Chemical Allergen Start: 03-02-19 Cepacol Extra Strength 15-2.6 MG as directed Mouth/Throat every 4 hours Feb, Not-Taking carbamide peroxide 65 mg/ml otic solution (1 source) Start: 04-09-19 Debrox 6.5 % 2 drops into affected ear Otic once a week Mar, Not-Taking dextromethorphan hydrobromide 15 mg / guaiFENesin 400 mg / pseudoephedrine hydrochloride 60 mg oral tablet (1 source) alpha-Adrenergic Agonist, Uncompetitive F-ddlygp-I-aspart ate Receptor Antagonist, Sigma-1 Agonist Start: 10-26-19 End: 02-24-20 take 4 tablets by mouth every twenty-four hours as needed Mynchpowpryfqie-Li-Lwo ifenesin (Capmist Dm) 60-15-400 mg tablet Discontinued 1 TAB PO EVERY 4-6 HOURS as needed for cold symptoms October 26, 2023 12:00am February 24, 2024 12:45pm do not exceed 4 doses per 24 hrs fluticasone propionate 0.05 mg/actuat metered dose nasal spray (1 source) Corticosteroid Start: 10-26-19 End: 02-24-20 take 2 spray(s) nasal route once daily Fluticasone Propionate (Flonase Allergy Relief) 50 mcg/actuation spray,suspension Discontinued 2 SPRAY INTRANASAL Daily October 26, 2023 12:00am February 24, 2024 12:45pm administer 2 spray into each nostril medroxyPROGESTERone (2 sources) Progestin medroxyPROGESTER one Acetate [...] Classification Problem Date Documented Da te Episodic/Chronic Biliary tract disease (1 source) Calculus of bile duct; Translations: [Calculus of bile duct without cholangitis or cholecystitis without obstruction] Onset: 06-24-2024 Episodic Mycoses (2 sources) Mycosis; Translations: [Candidiasis, unspecified] 11-12-2023 Episodic Nausea and vomiting (4 sources) Nausea with vomiting, unspecified; Translations: [NAUSEA WITH VOMITING UNSPECIFIED] Onset: 04-22-2022 Episodic Other aftercare (1 source) assistant terminal manager (current) use of oral hypoglycemic drugs; Translations: [HALFWAY USE ORAL HYPOGLYCEMIC DX] Onset: 04-25-2022 Episodic Other aftercare (1 source) intermediate (current) use of hormonal contraceptives; Translations: [PATCH SANDER HORMONAL CONTRACEPTIVES] Onset: 04-25-2022 Episodic Other ear and sense organ disorders (1 source) Impacted cerumen, left ear Episodic Other endocrine disorders (4 sources) Polycystic ovarian syndrome; Translations: [POLYCYSTIC OVARIAN SYNDROME] Onset: 06-01-2021 Chronic Other gastrointestinal disorders (1 source) Irritable bowel syndrome without diarrhea; Translations: [IRRITABLE BOWEL SYND W/O DIARRHEA] Onset: 04-25-2022 Chronic Other nervous system disorders (1 source) Postoperative pain ; Translations: [Other acute postprocedural pain] Onset: 06-24-2024 Episodic Other upper respiratory infections (1 source) Nasopharyngitis; Translations: [Acute nasopharyngitis [common cold]] 10-26-2023 Episodic Otitis media and related conditions (1 source) Otitis media of right ear; Translations: [Otitis media, unspecified, right ear] 02-24-2024 Episodic Substance-related disorders (1 source) Nicotine dependence, cigarettes, uncomplicated; Translations: [NICOTINE DEPEND CIGARETTES UNCOMP] Onset: 04-25-2022 Chronic Results Test Name Value Interpretation Reference Range Facility Surgical Pathology Reporton 06-27-2024 [place] [address]- Surgical Pathology Report Collected Date/Time: 06/24/2024 15:40 EDT Pathologist: Armin OLSON PhD, Estephania Rodríguez Date/Time: 06/25/2024 07:39 EDT Lilly OLSON, Yordan Carr MD, Yordan Barrios Surgical Pathology Report - 06/27/2024 11:36 EDT - Auth (Verified) Final Diagnosis GALLBLADDER, CHOLECYSTECTOMY: - CHOLELITHIASIS AND CHOLESTEROSIS. - REACTIVE LYMPH NODE WITH SINUS HISTIOCYTOSIS. (Electronic Signature) Estephania Funez MD PhD 06/27/2024 11:36 Clinical Information Choledocholithiasis Pre-Op Diagnosis: Choledocholithiasis Procedure: Laparoscopic cholecystectomy with intraoperative cholangiograms and common bile duct exploration with spyglass. Post-Op Diagnosis: Choledocholithiasis Specimen(s) Received Microscopic examination performed unless gross only specified. This report was transcribed using voice recognition technology and might contain unintended computerized environmental professional errors. Gross Description Received in formalin labeled with patient name, number, and gallbladder measuring 10.5 x 2.9 x 2.8 cm. The serosal surface is larsen/light purple/stained green, partially smooth and glistening. Surgical clip is removed from the cystic duct region which is inked green. Within the cystic duct opening there is a yellow-green friable gallstone measuring up to 0.1 cm. Near the cystic duct opening there is a possible larsen/light yellow/pink lymph node measuring 2 x 0.8 cm. Gallbladder is opened and contains dark olive-green viscous bile and greater than 100 yellow/brown partially round gallstones measuring up to 0.3 cm in greatest dimension. The wall of the gallbladder measures up to 0.4 cm in thickness. The mucosal surface is larsen/stained green and has a yellow-flecked appearance. Specimen is submitted in three cassettes: 1 - Cystic duct region 2 - Land Manager sections of gallbladder (DC) DC:[facility] Microscopic Description Microscopic examination performed unless gross only specified. This report was transcribed using voice recognition technology and might contain unintended computerized environmental professional errors. Normal [facility] Comment on above: Performed By: #### [id number] #### [facility] [address] [place] [address] Main OR Intraoperative Recor don 06-26-2024 Main OR Intraoperative Record Main OR Intraoperative Record IntraOp Document Type FT Summary Primary Physician: Yordan Carr MD Finalized Date/Time: 06/26/24 08:47:44 Pt. Name: DOREEN LIU/Sex: 2000 Female Med Rec #: [id number] Physician: Yordan Carr MD Financial #: [id number] Pt. Type: A Room/Bed: Admit/Disch: 06/24/24 07:14:23 - 06/24/24 17:45:00 Institution: Case Times FT Entry 1 Patient Times In Room 06/24/24 13:33:00 Out Room 06/24/24 15:49:00 Procedure Times Start 06/24/24 13:56:00 Stop 06/24/24 15:43:00 Anesthesia Times Start 06/24/24 13:33:00 Stop 06/24/24 15:49:00 Last Modified By: Angel Ferrara 06/24/24 15:55:44 Case Attendance FT Entry 1 Entry 2 Entry 3 Case Attendee Lilly OLSON, Yordan Anguiano ALLERGY NURSE, Angel Brock Role Performed Surgeon - Primary ALLERGY NURSE Broker Assistant - Primary Time In 06/24/24 13:33:00 06/24/24 13:33:00 06/24/24 13:33:00 Time Out 06/24/24 15:49:00 06/24/24 15:49:00 06/24/24 15:49:00 Procedure CHOLECYSTECTOMY CHOLECYSTECTOMY CHOLECYSTECTOMY LAPAROSCOPIC W/ LAPAROSCOPIC W/ LAPAROSCOPIC W/ CHOLANGI(.) CHOLANGI(.) CHOLANGI(.) Comments DR PATEL SUPERVISING Last Modified By: Angel Ferrara Terry T Sweene, Terry T 06/24/24 15:55:45 06/24/24 15:55:45 06/24/24 15:55:45 Entry 4 Entry 5 Entry 6 Case Attendee Axel ARMSTRONG, Hannah Shay, Cassy Cano FACILITY SERVICE ASSOCIATE, Tami Mc Role Performed SUEDE CLEANER/SA Scrub - Relief Staff - Other Time In 06/24/24 13:53:00 06/24/24 13:33:00 06/24/24 13:33:00 Time Out 06/24/24 15:49:00 06/24/24 15:49:00 06/24/24 13:48:00 Procedure CHOLECYSTECTOMY CHOLECYSTECTOMY CHOLECYSTECTOMY LAPAROSCOPIC W/ LAPAROSCOPIC W/ LAPAROSCOPIC W/ CHOLANGI(.) CHOLANGI(.) CHOLANGI(.) Comments ROOM ASSIST Last Modified By: Angel Ferrara Terry T Sweene, Terry T 06/24/24 15:55:45 06/24/24 15:55:45 06/24/24 15:55:45 Entry 7 Entry 8 Entry 9 Case Attendee Rigo CHENG(R), Reena Roach DEMO COORDINATOR-C, Anu Mcghee RN, Lucie Davey Role Performed [employer]osed Circuit Screen Watcher PA/DEMO COORDINATOR Staff - Other Time In 06/24/24 14:17:00 06/24/24 14:17:00 06/24/24 14:33:00 Time Out 06/24/24 15:17:00 06/24/24 15:49:00 06/24/24 14:40:00 Procedure CHOLECYSTECTOMY CHOLECYSTECTOMY CHOLECYSTECTOMY LAPAROSCOPIC W/ LAPAROSCOPIC W/ LAPAROSCOPIC W/ CHOLANGI(.) CHOLANGI(.) CHOLANGI(.) Comments ROOM ASSIST Last Modified By: Angel Ferrara Terry T Sweene, Terry T 06/24/24 15:55:45 06/24/24 15:55:45 06/24/24 15:55:45 Entry 10 Case Attendee Jie Lorenzana Role Performed Scrub - Relief Time In 06/24/24 15:00:00 Time Out 06/24/24 15:26:00 Procedure CHOLECYSTECTOMY LAPAROSCOPIC W/ CHOLANGI(.) Comments Last Modified By: Angel Ferrara 06/24/24 15:55:45 Perioperative Protocols FT Pre-Care Text: Implements protective measures prior to operative or invasive procedure, confirms identity before the operative or invasive procedure, verifies operative procedure, surgical site, and laterality Entry 1 Procedure(s) CHOLECYSTECTOMY Patient Identity Birthday, ID Band LAPAROSCOPIC W/ Verified (select at Check, Patient CHOLANGI(.) least 2): Participation Consents / H and P Anesthesia Consent, Operative Site N/A Verified H&P, Surgery/Procedure Marking Verified Consent Surgical Site Yes Laterality Verified n/a Verified Procedure Verified Yes Correct Patient Yes Position Verified Availability Equipment, Implant, Prep Dry Yes Verified (If Medication, X-ray Applicable) PreOp Antibiotic Yes Time Out Lilly OLSON, Yordan Rahman, Shirley Anguiano CRNA, Angel Ferrara, Axel ARMSTRONG, Laurita Armenta Sydney A Time Out Complete 06/24/24 13:56:00 Outcomes Met? Yes Last Modified By: Angel Ferrara 06/24/24 14:11:05 Post-Care Text: The patient is free from signs and symptoms of injury caused by extraneous objects Allergy Information FT Pre-Care Text: Verifies allergies Entry 1 Allergies Reviewed? Yes Allergies Reviewed Self/Patient With Outcomes Met? Yes Last Modified By: Angel Ferrara 06/24/24 14:11:12 Post-Care Text: The patient received appropriate medication(s) safely administered during the perioperative period Surgical Procedures FT Entry 1 Procedure Description Procedure CHOLECYSTECTOMY Modifiers . LAPAROSCOPIC W/ CHOLANGIOGRAM Surgeon Description LAPAROSCOPIC CHOLECYSTECTOMY WITH INTRAOPERATIVE CHOLANGIOGRAMS AND COMMON BILE DUCT EXPLORATION USING SPYGLASS, AND TAP BLOCK BY SURGEON Primary Procedure Yes Primary Surgeon Yordan Carr MD Start 06/24/24 13:56:00 Stop 06/24/24 15:43:00 Anesthesia Type General Surgical Service General Wound Class 2 - Clean-Contaminated Last Modified By: Angel Ferrara 06/24/24 15:55:49 General Case Data FT Pre-Care Text: Classifies surgical wound, implements aseptic technique, initiates traffic control Entry 1 Case Information OR OR 2 FT Case Level Level 3 Wound Class 2 - Clean-Contami (more content not included)... Normal [facility] XR Cholangiogram in ORon XR Cholangiogram in OR Exam Date/Time: 06/24/2024 15:21 EDT Reason for Exam: Abdominal pain Report IMPRESSION: INTEROPERATIVE CHOLANGIOGRAM. CLINICAL HISTORY: Abdominal pain COMPARISON: NONE. FINDINGS: 2 views. 22.2 mGy Catheter identified coursing from cystic duct into common duct. Multiple surgical clips gallbladder fossa. No intrahepatic ductal dilatation. Lucent round smooth filling defect common duct representing gas versus calculus identified. Contrast medium identified within second portion of duodenum. Please review operative note for additional information. Technical Comments: tremaine Garcia in mGy = 22.25 DAP = na Ordering Provider: Yordan Carr FINAL REPORT Dictated: 06/25/2024 1:55 pm Pepito Michele MD Signed (Electronic Signature): 06/25/2024 1:55 pm Signed by: Pepito Michele MD Transcribed by: MICHELLE Technologist: VIVI Normal [facility] Discharge Instructionson Discharge Instructions Discharge Instructions DOREEN LIU :2000 Visit Date:06/24/2024 Inpatient Discharge Instructions Your Care Team Admitting Physician - Yordan Carr MD Reason for Your Visit LAPROSCOPIC CHOLECYSTECTOMY Your Diagnosis Choledocholithiasis Acute post-operative pain Preoperative clearance Tests Performed Pathology Tissue Exam -- Results Pending -- XR Cholangiogram in OR -- Results Pending -- Please visit your patient portal for your results or contact your primary care physician. This Is Your Medications List [facility] [place] acetaminophen (Tylenol Extra Strength 500 mg oral tablet) ibuprofen (ibuprofen 400 mg Tab) oxycodone (oxyCODONE 5 mg Tab) What to do next Instructions From Your Doctor Event Name Event Result Discharge Activity Expect mild pain, Activity as tolerated Discharge Restrictions No driving for 24 hrs Discharge Diet(s) Regular Call Your Doctor For Temperature above 101.5 degrees, Redness, swelling, or pus at operative site, Severe pain at the operative site, Persistent vomiting Pending Diagnostic Test Results Biopsy/pathology Discharge Instructions Ok to shower starting 24 hours after surgery. No lifting greater than 10 pounds for 4-6 weeks. [address] driving within 24 hours of taking pain medications. Call office or come to ER if you develop worsening pain, inability to eat/drink or nausea/vomiting. New Follow Up Appointments after Discharge Follow Up with Trauma Clinic When: Within 1 to 2 weeks Comments: Please call to make follow up appointment. Where: [address] [place] [address] 3, [address] Floor, [address] [place], [place] [address]- [phone] Medications What How Much When Instructions Next Dose New acetaminophen (Tylenol Extra Strength 500 mg oral tablet) 1 Tablets By Mouth Every 6 hours Duration: 5 Days Pickup at [facility] New ibuprofen (ibuprofen 400 mg Tab) 1 Tablets By Mouth Every 6 hours Duration: 5 Days Pickup at [facility] New oxycodone (oxyCODONE 5 mg Tab) 0.5 Tablets By Mouth Every 6 hours as needed for for pain Duration: 3 Days Pickup at [facility] Unchanged [facility] [place] 0 Pharmacy Information [facility]: [address] [place], [place] [id number] [phone] Allergies No Known Medication Allergies Education Materials Minimally Invasive Cholecystectomy, Care After What can I expect after the procedure? After the procedure, it is common to: ??? Have pain at the areas of surgery. You will be given medicines for pain. ??? Vomit or feel like you may vomit. ??? Feel fullness in the belly (bloating) or have pain in the shoulder. This comes from the gas that was used during the surgery. Follow these instructions at home: Medicines ??? Take nxbr-xzg-cbizzmo and prescription medicines only as told by your doctor. ??? If you were prescribed an antibiotic medicine, take it as told by your doctor. Do not stop taking it even if you start to feel better. ??? If told, take steps to prevent problems with pooping (constipation). You may need to: ? Drink enough fluid to keep your pee (urine) pale yellow. ? Take medicines. You will be told what medicines to take. ? Eat foods that are high in fiber. These include beans, whole grains, and fresh fruits and vegetables. ? Limit foods that are high in fat and sugar. These include fried or sweet foods. ??? Ask your doctor if you should avoid driving or using machines while you are taking your medicine. Incision care ??? Follow instructions from your doctor about how to take care of your cuts from surgery (incisions). Make sure you: ? Wash your hands with soap and water for at least 20 seconds before and after you change your bandage (dressing). If you cannot use soap and water, use hand car wiper. ? Change your bandage. ? Leave stitches (sutures) or skin glue in place for at least 2 weeks. ? Leave tape strips alone unless you are told to take them off. You may trim the edges of the tape strips if they curl up. ??? Do not take baths, swim, or use a hot tub. Ask your doctor about taking showers or sponge baths. ??? Check your incision area every day for signs of infection. Check for: ? More redness, swelling, or pain. ? Fluid or blood. ? Warmth. ? Pus or a bad smell. Activity ??? Rest as told by your doctor. Do not do activities that require a lot of effort. ??? Get up to take short walks every 1 to 2 hours. Ask for help if you feel weak or unsteady. ??? Do not lift anything that is heavier than 10 lb (4.5 kg), for the next 4-6 weeks ??? Do not play contact sports until your doctor says it is okay. ??? Do not return to work or school until your doctor says it is okay. ??? Return to your normal activities when your doctor says that it is safe. General instruc (more content not included)... Normal [facility] Comment on above: Result Comment: Elec tronically Signed By: Ashu FONG, Niki Interiano\humberto\Date and Time Signed: 06/24/24 16:21 EDT Main OR PACU I Recordon 05-28 Main OR PACU I Record Main OR PACU I Record PACU Phase I Document Type FT Summary Primary Physician: Yordan Carr MD Finalized Date/Time: 06/24/24 17:33:32 Pt. Name: ELIEZERDOREEN D.O.B./Sex: 2000 Female Med Rec #: [id number] Physician: Yordan Carr MD Financial #: [id number] Pt. Type: A Room/Bed: [place] [address] Admit/Disch: 06/24/24 07:14:23 - Institution: Case Times PACU I FT Pre-Care Text: Identifies barriers to communication and implements measures to provide psychological support Develops individualized plan of care, and ensures continuity of care Maintains patient's dignity and privacy, and maintains patient confidentiality Identifies and reports philosophical, cultural, and spiritual beliefs and values Identifies individual values and wishes concerning care Implements aseptic technique, and administers prescribed antibiotic therapy and immunizing agents as ordered Evaluates postoperative tissue perfusion Implements thermoregulation measures, and monitors body temperature Evaluates postoperative respiratory status Evaluates postoperative cardiac status Evaluates postoperative neurological status Assesses pain control, collaborated in initiating patient-controlled analgesia and implements alternative methods of pain control Verifies allergies, administers prescribed medications and solutions, evaluates response to medications Entry 1 In PACU I 06/24/24 15:52:00 Discharge from PACU 06/24/24 16:40:00 I Outcomes Met? Yes Last Modified By: Erna Roa RN 06/24/24 17:31:51 Post-Care Text: The patient demonstrates knowledge of the expected response to the operative or invasive procedure The patient's care is consistent with the individualized perioperative plan of care The patient's right to privacy is maintained The patient's value system, lifestyle, ethnicity, and culture are considered, respected, and incorporated into the perioperative plan of care The patient participates in decisions affecting his or her perioperative plan of care The patient is free from signs and symptoms of infection The patient has wound/tissue perfusion consistent with or improved from baseline levels established preoperatively The patient is at or returning to normothermia at the conclusion of the immediate postoperative period The patient's respiratory function is consistent with or improved from baseline levels established preoperatively The patient's cardiovascular status is consistent with or improved from baseline levels established preoperatively The patient's cardiovascular status is consistent with or improved from baseline levels established preoperatively The patient demonstrates and/or reports adequate pain control throughout the perioperative period The patient received appropriate medication(s), safely administered during the perioperative period Acuity Level PACU I FT Entry 1 Start Time 06/24/24 15:52:00 Stop Time 06/24/24 16:40:00 Acuity Level Acuity Level I Last Modified By: Erna Roa RN 06/24/24 17:33:27 Finalized By: Erna Roa RN Document Signatures Signed By: Erna Roa RN 06/24/24 17:33 Normal [facility] Main OR PACU II Recordon Main OR PACU II Record Main OR PACU II Record PACU Phase II Document Type FT Summary Primary Physician: Yordan Carr MD Finalized Date/Time: 06/24/24 18:27:05 Pt. Name: ANNEGIANNADOREEN/Sex: 2000 Female Med Rec #: [id number] Physician: Yordan Carr MD Financial #: [id number] Pt. Type: A Room/Bed: [place] [address] Admit/Disch: 06/24/24 07:14:23 - 06/24/24 17:45:00 Institution: Case Times PACU II FT Pre-Care Text: Identifies barriers to communication and implements measures to provide psychological support and determines knowledge level Develops individualized plan of care, and ensures continuity of care Maintains patient's dignity and privacy, and maintains patient confidentiality Identifies and reports philosophical, cultural, and spiritual beliefs and values Identifies individual values and wishes concerning care administers prescribed antibiotic therapy and immunizing agents as ordered, Evaluates postoperative tissue perfusion Implements thermoregulation measures, and monitors body temperature Evaluates postoperative respiratory status Evaluates postoperative cardiac status Evaluates postoperative neurological status Assesses pain control, collaborated in initiating patient-controlled analgesia and implements alternative methods of pain control Verifies allergies, administers prescribed medications and solutions, evaluates response to medications Entry 1 In PACU II 06/24/24 16:45:00 Discharge from PACU 06/24/24 17:45:00 II Outcomes Met? Yes Last Modified By: Niki Wakefield RN 06/24/24 18:27:03 Post-Care Text: The patient demonstrates knowledge of the expected response to the operative or invasive procedure The patient's care is consistent with the individualized perioperative plan of care The patient's right to privacy is maintained The patient's value system, lifestyle, ethnicity, and culture are considered, respected, and incorporated into the perioperative plan of care The patient participates in decisions affecting his or her perioperative plan of care. The patient is free from signs and symptoms of infection The patient has wound/tissue perfusion consistent with or improved from baseline levels established preoperatively The patient is at or returning to normothermia at the conclusion of the immediate postoperative period The patient's respiratory function is consistent with or improved from baseline levels established preoperatively The patient's cardiovascular status is consistent with or improved from baseline levels established preoperatively The patient's neurological status is consistent with or improved from baseline levels established preoperatively The patient demonstrates and/or reports adequate pain control throughout the perioperative period The patient received appropriate medication(s), safely administered during the perioperative period Finalized By: Niki Wakefield RN Document Signatures Signed By: Niki Wakefield RN 06/24/24 18:27 Normal [facility] Main OR Preoperative Recordo n 06-24-2024 Main OR Preoperative Record Main OR Preoperative Record PreOp Document Type FT Summary Primary Physician: Yordan Carr MD Finalized Date/Time: 06/24/24 13:58:13 Pt. Name: DOREEN LIU/Sex: 2000 Female Med Rec #: [id number] Physician: Yordan Carr MD Financial #: [id number] Pt. Type: A Room/Bed: [facility] Admit/Disch: 06/24/24 07:14:23 - Institution: Case Times PreOp FT Pre-Care Text: Verifies consent for planned procedure, identifies individual values and wishes concerning care, includes family members in perioperative teaching Entry 1 Patient Times. In Pre Surgery 06/24/24 07:30:00 Out Pre Surgery 06/24/24 13:31:00 Outcomes Met? Yes Last Modified By: Angel Ferrara 06/24/24 13:58:12 Post-Care Text: The patient participates in decisions affecting his or her perioperative plan of care Finalized By: Angel Ferrara Document Signatures Signed By: Angel Ferrara 06/24/24 13:58 Normal [facility] Operative Reporton Operative Report Operative Report [facility] Acute Care Surgery Operative Report Date of Service: 06/24/2024 Preop Diagnosis: Choledocholithiasis Postop Diagnosis: Choledocholithiasis Procedure: Laparoscopic cholecystectomy, intraoperative cholangiogram, laparoscopic transcystic common bile duct exploration with spyglass and balloon sphincteroplasty Surgeon: Yordan Carr MD Line Maintenance Supervisor: Anu Roach NP, FOOT GATHERER Anesthesia: General endotracheal EBL: 25 mL Wound Class: Class III Drains: None Complications: None Specimens: Gallbladder and contents Intraoperative Findings: Normal-appearing gallbladder with stones, intraoperative cholangiogram demonstrates filling of common bile duct, common hepatic duct, right and left hepatic duct, appropriate flow of contrast into the duodenum, several filling effects in the mid CBD significant for choledocholithiasis. Completion cholangiogram as well as choledochoscopy demonstrates clearance of the CBD Indications: DOREEN LIU is a 24 Years Female admitted signs symptoms and imaging findings consistent with choledocholithiasis. The risks, benefits, and alternatives to surgery were explained to the patient who provided their informed consent for the procedure. Operative Note: The patient was brought to the operating room and transferred to the operating room table. General anesthesia was induced and endotracheal tube was placed. The patient was positioned supine with both arms tucked. The abdomen was prepped and draped in usual sterile fashion. A preoperative timeout was performed. A 5 mm incision was made in the left upper quadrant at Barbour's point. A Veress needle was inserted to the abdomen and the abdomen was insufflated to 15 mmHg after confirming intra-abdominal placement with a hanging drop test. The Veress needle was removed and a 5 mm Optiview trocar was inserted into the abdomen under laparoscopic vision. The laparoscope was inserted and the abdomen surveyed. There were no injuries seen from entry. A supraumbilical 12 mm laparoscopic port was placed to the left of midline under laparoscopic vision. In similar fashion 2 additional 5 mm laparoscopic ports were placed in the right upper quadrant along the costal margin. The gallbladder was grasped and retracted. The peritoneum overlying the hepatocystic triangle was opened with electrocautery to reveal the structures within. All fibrofatty tissue was dissected and the critical view of safety was obtained. The cystic artery was clipped and divided. The cystic duct was clipped proximally and a ductotomy was made. A 12-gauge Angiocath was placed through the abdominal wall just superior to the central 5 mm port. A cholangiogram catheter was passed through the Angiocath and inserted through the ductotomy into the cystic duct. A partially occlusive clip was placed to the secure the cholangiogram catheter. A cholangiogram was then performed using fluoroscopy. There was filling of the common bile duct, common hepatic duct, right and left hepatic duct with appropriate flow of contrast into the duodenum. There were several filling defects in the mid CBD significant for choledocholithiasis. A stiff body 0.035 guidewire was then inserted through the cholangiogram catheter through the bile duct and into the duodenum under fluoroscopic guidance. Over this wire a 8 mm x 40 mm Browning angioplasty balloon was inserted over the wire and positioned straddling the sphincter of Oddi. This balloon was brought up to profile at nominal pressure and maintained for 3 minutes. At the end of 3 minutes the balloon was deflated, pulled back into the proximal common bile duct. The balloon was inflated to a subnominal pressure (just occlusive of the proximal bile duct) and using normal saline the bile duct was power flushed. A cholangiogram was performed through this catheter which did demonstrate no further filling defects however was of relatively poor quality and not felt to be 100% diagnostic. A short 6 mm [id number] balloon was then advanced over the wire into the cystic duct and the entirety of the cystic duct was dilated using this balloon to 6 mm. Over the wire a spyglass choledochoscope was then passed through the cystic duct into the common bile duct. The wire was removed and the choledochoscope was advanced into the duodenum. The choledochoscope was then pulled back and the entirety of the common bile duct was inspected. There was no evidence of any stones. The choledochoscope was able to be turned and passed retrograde into the common hepatic duct up to the level of the hepatic bifurcation. No stones were seen at any point. The choledochoscope was removed and the cystic duct stump was secured with clips x 2. The gallbladder was then removed from the liver bed with electrocautery. The gallbladder was placed in Endo Catch bag and removed through the periumbilical incision. Hemostasis of the liver bed was ensured with electrocautery. Free fluid in the abdomen was suctioned. The fascia at the 12 mm port site was closed (more content not included)... Normal [facility] Comment on above: Result Comment: Elec tronically Signed By: Lilly OLSON, Yordan Rahman\.br\Date and Time Signed: 06/24/24 16:17 EDT Urine Cultureon 06-23-2024 Bacteria identified Cx Nom (U) <9,000 colonies/ml mixed bacterial skin contaminants 2 Days PERFORMED BY: [place] [address] PATHOLOGIST CARBURETOR SPECIALIST ESPERANZA BENDRE M.D. Normal [facility] Comment on above: Performed By: #### C UU #### [address] IGP,APTIMA HPV,AGE GDLNon AGE GDLN ACOG TESTING Note . [facility] Comment on above: TESTS RESULT FLAG UN ITS REF RANGE LAB Clinician Provided Cytology Information Source.............Cervix;Endocervix No. of containers..01 ThinPrep Vial Age Algo ACOG Ann... FLAG LEGEND: L-Low Normal,H-High Normal,LL-Alert Low,HH-Alert High <-Panic Low,>-Panic High,A-Abnormal,AA-Critical Abnormal Performed at: 01 [facility] [address] [place] [place] [address] Maryann Wilson MD, IGP, RFX APTIMA HPV ASCU Note . [facility] Comment on above: TESTS RESULT FLAG UN ITS REF RANGE LAB DIAGNOSIS: 02 NEGATIVE FOR INTRAEPITHELIAL LESION OR MALIGNANCY. Specimen adequacy: 02 Satisfactory for evaluation. No endocervical component is identified. Performed by: 02 Viridiana Rain, Pharmacist Aide ([facility]) . 02 Note: Note 02 The Pap smear is a screening test designed to aid in the detection of premalignant and malignant conditions of the uterine cervix. It is not a diagnostic procedure and should not be used as the sole means of detecting cervical cancer. Both false-positive and false-negative reports do occur. Test Methodology: Note 02 This liquid based ThinPrep(R) pap test was screened with the use of an image guided system. . 02 The HPV DNA reflex criteria were not met with this specimen result therefore, no HPV testing was performed. FLAG LEGEND: L-Low Normal,H-High Normal,LL-Alert Low,HH-Alert High <-Panic Low,>-Panic High,A-Abnormal,AA-Critical Abnormal Performed at: 02 WB [facility] [address] [address] Maryann Wilson MD, Performed at: =G - [facility] [address] [id number] Healthcare Educator: Maryann Wilson MD, Phone: [phone] Performed at: WB - [facility] [address] [id number] Healthcare Educator: Maryann Wilson MD, Phone: [phone] BRUSH-SPATULA CERVIX ENDOCERVIX [facility] AMYLASEon 04-22-2022 Amylase [Catalytic activity/Vol] 34 U/L Normal 25-115 [facility] Comment on above: Performed By: #### A MY LIPA #### [facility] [address] [place] [address] Dr. Estephania Funez CBC AUTO DIFFon 04-22-2022 BASO # 0.0 103/ul Normal 0.0-0.1 [facility] Comment on above: Performed By: #### C BC #### [facility] [address] [place] [address] Dr. Estephania Funez Basophils/100 WBC (Bld) 0.3 % Normal 0.2-2.0 [facility] Comment on above: Performed By: #### C BC #### [facility] [address] [place] [address] Dr. Estephania Funez EO # 0.1 103/ul Normal 0.0-0.7 [facility] Comment on above: Performed By: #### C BC #### [facility] [address] [place] [address] Dr. Estephania Funez Eosinophils/100 WBC (Bld) 0.7 % Critically low 0.9-7.0 [facility] Comment on above: Performed By: #### C BC #### [facility] [address] [place] [address] Dr. Estephania Funez Erythrocyte distribution width (RBC) [Ratio] 16.0 % Critically high 11.0-15.0 [facility] Comment on above: Performed By: #### C BC #### [facility] [address] [place] [address] Dr. Estephania Funez Hematocrit (Bld) [Volume fraction] 35.5 % Critically low 36.0-48.0 [facility] Comment on above: Performed By: #### C BC #### [facility] [address] [place] [address] Dr. Estephania Funez Hemoglobin (Bld) [Mass/Vol] 11.1 g/dL Critically low 12.0-16.0 [facility] Comment on above: Performed By: #### C BC #### [facility] [address] [place] [address] Dr. Estephania Funez IG # 0.01 10e3/ul Normal 0.00-0.03 [facility] Comment on above: Performed By: #### C BC #### [facility] [address] [place] [address] Dr. Estephania Funez IG % 0.1 % Normal 0.0-0.5 [facility] Comment on above: Performed By: #### C BC #### [facility] [address] [place] [address] Dr. Estephania Funez LYMPH # 1.7 103/ul Normal 1.2-3.8 [facility] Comment on above: Performed By: #### C BC #### [facility] [address] [place] [address] Dr. Estephania Funez Lymphocytes/100 WBC (Bld) 23.9 % Normal 20.5-60.0 [facility] Comment on above: Performed By: #### C BC #### [facility] [address] [place] [address] Dr. Estephania Funez MANUAL DIFF REQ NO Normal [facility] Comment on above: Performed By: #### C BC #### [facility] [address] [place] [address] Dr. Estephania Funez MCH (RBC) [Entitic mass] 22.3 pg Critically low 26.7-34.0 [facility] Comment on above: Performed By: #### C BC #### [facility] [address] [place] [address] Dr. Estephania Funez MCHC (RBC) [Mass/Vol] 31.3 g/dL Normal 29.9-35.2 [facility] Comment on above: Performed By: #### C BC #### [facility] [address] [place] [address] Dr. Estephania Funez MCV (RBC) [Entitic vol] 71.4 fL Critically low 81.0-99.0 [facility] Comment on above: Performed By: #### C BC #### [facility] [address] [place] [address] Dr. Estephania Funez MONO # 0.4 103/ul Normal 0.3-0.8 [facility] Comment on above: Performed By: #### C BC #### [facility] [address] [place] [address] Dr. Estephania Funez Monocytes/100 WBC (Bld) 6.2 % Normal 1.7-12.0 [facility] Comment on above: Performed By: #### C BC #### [facility] [address] [place] [address] Dr. Estephania Funez NEUT # 4.9 103/ul Normal 1.4-6.5 [facility] Comment on above: Performed By: #### C BC #### [facility] [address] [place] [address] Dr. Estephania Funez Neutrophils/100 WBC (Bld) 68.8 % Normal 43.0-75.0 [facility] Comment on above: Performed By: #### C BC #### [facility] [address] [place] [address] Dr. Estephania Funez Platelet mean volume (Bld) [Entitic vol] 11.9 fL Normal 9.5-13.5 [facility] Comment on above: Performed By: #### C BC #### [facility] [address] [place] [address] Dr. Estephania Funez PLT 228 103/ul Normal 150-450 [facility] Comment on above: Performed By: #### C BC #### [facility] [address] [place] [address] Dr. Estephania Funez RBC 4.97 106/ul Normal 4.20-5.40 [facility] Comment on above: Performed By: #### C BC #### [facility] [address] [place] [address] Dr. Estephania Funez WBC 7.1 103/ul Normal 4.0-11.0 [facility] Comment on above: Performed By: #### C BC #### [facility] [address] [place] [address] Dr. Estephania Funez ER URINE PROFILEon 3 Bilirubin Ql (U) Negative Normal NEGATIVE [facility] Comment on above: Performed By: #### E RUR, PREGU #### [facility] [address] [place] [address] Dr. Estephania Funez Clarity (U) CLEAR Normal CLEAR [facility] Comment on above: Performed By: #### E RUR, PREGU #### [facility] [address] [place] [address] Dr. Estephania Funez Color (U) YELLOW Normal YELLOW [facility] Comment on above: Performed By: #### E RUR, PREGU #### [facility] [address] [place] [address] Dr. Estephania YEBOAH A micrscopic examination will be performed if indicated. Normal [facility] Comment on above: Performed By: #### E RUR, PREGU #### [facility] [address] [place] [address] Dr. Estephania Funez Glucose Ql (U) Negative Normal NEGATIVE [facility] Comment on above: Performed By: #### E RUR, PREGU #### [facility] [address] [place] [address] Dr. Estephania Funez Hemoglobin Ql (U) Negative Normal NEGATIVE [facility] Comment on above: Performed By: #### E RUR, PREGU #### [facility] [address] [place] [address] Dr. Estephania Funez Ketones Ql (U) Negative Normal NEGATIVE [facility] Comment on above: Performed By: #### E RUR, PREGU #### [facility] [address] [place] [address] Dr. Estephania Funez LEUKOCYTES Negative Normal NEGATIVE [facility] Comment on above: Performed By: #### E RUR, PREGU #### [facility] [address] [place] [address] Dr. Estephania Funez Nitrite Ql (U) Negative Normal NEGATIVE [facility] Comment on above: Performed By: #### E RUR, PREGU #### [facility] [address] [place] [address] Dr. Estephania Funez pH (U) 6.0 [pH] Normal 5-9 [facility] Comment on above: Performed By: #### E RUR, PREGU #### [facility] [address] [place] [address] Dr. Estephania Funez SPEC GRAVITY >=1.030 Abnormal 1.005-<=1.025 [facility] Comment on above: Performed By: #### E RUR, PREGU #### [facility] [address] [place] [address] Dr. Estephania Funez UA PROTEIN TRACE Normal NEGATIVE/ TRACE [facility] Comment on above: Performed By: #### E RUR, PREGU #### [facility] [address] [place] [address] Dr. Estephania Funez UR MICRO IND NOT INDICATED Normal [facility] Comment on above: Performed By: #### E RUR, PREGU #### [facility] [address] [place] [address] Dr. Estephania Funez Urobilinogen Qn (U) 1.0 {Gini'U}/dL Normal 0.2 - 1. 0 [facility] Comment on above: Performed By: #### E RUR, PREGU #### [facility] [address] [place] [address] Dr. Estephania Funez LIPASEon 04-22-2022 Lipase [Catalytic activity/Vol] 84.0 U/L Normal 73.0-393.0 [facility] Comment on above: Performed By: #### A MY, LIPA #### [facility] [address] [place] [address] Dr. Estephania Funez URon 04-22-2022 , QUAL Negative Normal NEGATIVE [facility] Comment on above: Performed By: #### E RUR, PREGU #### [facility] [address] [place] [address] Dr. Estephania Funez PROF 14(COMP METB)on 023 Albumin [Mass/Vol] 3.3 g/dL Critically low 3.4-5.0 [facility] Comment on above: Performed By: #### C MP #### [facility] [address] [place] [address] Dr. Estephania Funez Albumin/Globulin [Mass ratio] 0.8 {ratio} Normal [facility] Comment on above: Performed By: #### C MP #### [facility] [address] [place] [address] Dr. Estephania Funez ALP [Catalytic activity/Vol] 60 U/L Normal 46-116 [facility] Comment on above: Performed By: #### C MP #### [facility] [address] [place] [address] Dr. Estephania Funez ALT [Catalytic activity/Vol] 16 U/L Normal 14-59 [facility] Comment on above: Performed By: #### C MP #### [facility] [address] [place] [address] Dr. Estephania Funez Anion gap [Moles/Vol] 14.1 mmol/L Normal [facility] Comment on above: Performed By: #### C MP #### [facility] [address] [place] [address] Dr. Estephania Funez AST [Catalytic activity/Vol] 13 U/L Critically low 15-37 [facility] Comment on above: Performed By: #### C MP #### [facility] [address] [place] [address] Dr. Estephania Funez Bilirubin [Mass/Vol] 0.3 mg/dL Normal 0.2-1.0 [facility] Comment on above: Performed By: #### C MP #### [facility] [address] [address] [address] Estephania Funez Calcium [Mass/Vol] 9.1 mg/dL Normal 8.5-10.1 [facility] Comment on above: Performed By: #### C MP #### [facility] [address] [address] [address] Estephania Funez Chloride [Moles/Vol] 103 mmol/L Normal 98-107 [facility] Comment on above: Performed By: #### C MP #### [facility] [address] [address] [address] Estephania Funez CO2 [Moles/Vol] 24.7 mmol/L Normal 21.0-32.0 The [facility] Comment on above: Performed By: #### C MP #### [facility] [address] [address] [address] Estephania Funez Creatinine [Mass/Vol] 0.64 mg/dL Normal 0.55-1.02 [facility] Comment on above: Performed By: #### C MP #### [facility] [address] [place] [address] Dr. Estephania Funez EGFR-AF CAMEROONIAN >60 Normal >=60 The [facility] Comment on above: Performed By: #### C MP #### [facility] [address] [address] [address] Estephania Funez EGFR-NON AF CAMEROONIAN >60 Normal >=60 [facility] Comment on above: Performed By: #### C MP #### [facility] [address] [address] [address] Estephania Funez Globulin (S) [Mass/Vol] 3.9 g/dL Normal [facility] Comment on above: Performed By: #### C MP #### [facility] [address] [address] [address] Estephania Funez Glucose [Mass/Vol] 101 mg/dL Normal 74-106 [facility] Comment on above: Performed By: #### C MP #### [facility] [address] [address] [address] Estephania Funez Potassium [Moles/Vol] 3.8 mmol/L Normal 3.5-5.1 [facility] Comment on above: Performed By: #### C MP #### [facility] [address] [id number] [address] Estephania Funez Protein [Mass/Vol] 7.2 g/dL Normal 6.4-8.2 [facility] Comment on above: Performed By: #### C MP #### [facility] [address] [address] [address] Estephania Funez Sodium [Moles/Vol] 138 mmol/L Normal 136-145 [facility] Comment on above: Performed By: #### C MP #### [facility] [address] [address] [address] Estephania Funez Urea nitrogen [Mass/Vol] 11.0 mg/dL Normal 6.4-19.3 [facility] Comment on above: Performed By: #### C MP #### [facility] [address] [address] [address] Estephania Funez Urea nitrogen/Creatinine [Mass ratio] 17.2 mg/mg Normal [facility] Comment on above: Performed By: #### C MP #### [facility] [address] [id number] Estephania Funez US PELVIS AND TRANSVAGon [...] by: YESY LOPEZ Date: 2021-06-01 10:03 Normal [facility] Vital Signs Date Time Vital Sign Value Performing Clinician Facility 06-24-2024 17:32-0400 Heart rate 72 /min Yordan Jamilbeatrice [facility] 06-24-2024 17:32-0400 SaO2% (BldA) [Mass fraction] 100 % Yordan Jamilbeatrice [facility] 06-24-2024 17:32-0400 Respiratory rate 16 /min Yordan Jamilbeatrice [facility] 06-24-2024 17:32-0400 Blood Pressure Location Yordan Carr [facility] 06-24-2024 17:32-0400 Diastolic blood pressure 77 mm[Hg] Yordan Cabrerazahratrent [facility] 06-24-2024 17:32-0400 Mean blood pressure 90 mm[Hg] Yordan Jamilbeatrice [facility] 06-24-2024 17:32-0400 Systolic blood pressure 117 mm[Hg] Yordan Cabreramilkelsy [facility] 06-24-2024 17:32-0400 Body temperature 96.98 [degF] Yordan Jamilbeatrice [facility] 06-24-2024 16:50-0400 Heart rate 59 /min Yordan Lilly [facility] 06-24-2024 16:50-0400 SaO2% (BldA) [Mass fraction] 96 % Yordan Szynkowski [facility] 06-24-2024 16:48-0400 Blood Pressure Location Yordan Szbahmankowski [facility] 06-24-2024 16:48-0400 Diastolic blood pressure 68 mm[Hg] Yordan Szynkowski [facility] 06-24-2024 16:48-0400 Mean blood pressure 83 mm[Hg] Yordan Szynkowski [facility] 06-24-2024 16:48-0400 Systolic blood pressure 111 mm[Hg] Yordan Szynkowski [facility] 06-24-2024 16:48-0400 Body temperature 96.98 [degF] Yordan Szynkowski [facility] 06-24-2024 16:47-0400 Respiratory rate 16 /min Yordan Szynkowski [facility] 06-24-2024 16:36-0400 SaO2% (BldA) [Mass fraction] 99 % Yordan Szynkowski [facility] 06-24-2024 16:35-0400 Heart rate 58 /min Yordan Szynkowski [facility] 06-24-2024 16:35-0400 Respiratory rate 16 /min Yordan Szynkowski [facility] 06-24-2024 16:35-0400 Diastolic blood pressure 78 mm[Hg] Yordan Szynkowski [facility] 06-24-2024 16:35-0400 Systolic blood pressure 128 mm[Hg] Yordanalfredito Cabrerakowski [facility] 06-24-2024 16:35-0400 Blood Pressure Location Yordanalfredito Carr [facility] 06-24-2024 16:35-0400 Body temperature 98.24 [degF] Yoradnalfredito Pagewski [facility] 06-24-2024 16:25-0400 Respiratory rate 16 /min Yordanalfredito Cabrerakowski [facility] 06-24-2024 16:10-0400 Respiratory rate 30 /min Yordan Szynkowski [facility] 06-24-2024 15:45-0400 Respiratory rate 20 /min Yordan Rizzoki [facility] 06-24-2024 07:44-0400 Mean blood pressure 80 mm[Hg] Yordan Rizzoki [facility] 06-24-2024 07:43-0400 Body temperature 97.52 [degF] Yordan Rizzoki [facility] 11-12-2023 10:59-0400 Body height 167.6 cm Michele Mario DO Work Phone: [facility] 11-12-2023 10:59-0400 Body mass index (BMI) [Ratio] 28.25 kg/m2 Michele Mario DO Work Phone: [facility] 11-12-2023 10:59-0400 Body weight 79.38 kg Michele Mario DO Work Phone: [facility] 11-12-2023 10:59-0400 Diastolic blood pressure 72 mm[Hg] Michele Mario DO Work Phone: [facility] 09-16-2024 10:59-0400 Systolic blood pressure 112 mm[Hg] Michele Martin DO Work Phone: [facility] 03-20-2022 15:25-0500 Body height 167.64 cm Rhea Erwin Other [facility] Other 03-20-2022 15:25-0500 Body mass index (BMI) [Ratio] 36.31 kg/m2 Rhea Erwin Other [facility] Other 03-20-2022 15:25-0500 Body temperature 98.3 [degF] Rhea Erwin Other [facility] Other 03-20-2022 15:25-0500 Body weight 102.06 kg Rhea Erwin Other [facility] Other 03-20-2022 15:25-0500 Diastolic blood pressure 92 mm[Hg] Rhea Erwin Other [facility] Other 03-20-2022 15:25-0500 Respiratory rate 18 /min Rhea Erwin Other [facility] Other 03-20-2022 15:25-0500 SaO2% (BldA) [Mass fraction] 98 % Rhea Erwin Other [facility] Other 03-20-2022 15:25-0500 Systolic blood pressure 143 mm[Hg] Rhea Erwin Other [facility] Other Encounters Encounter Date Encounter Type Care Provider Facility Start: 06-24-2024 End: 06-24-2024 Admission to same day surgery center Yordan Carr [facility] Start: 06-24-2024 End: 06-24-2024 ambulatory Yordan Carr Facility:[facility] Start: 06-23-2024 End: 06-23-2024 ambulatory Viridiana Glover [facility] Work Phone: Start: 06-23-2024 End: 06-23-2024 Departed Referred Viridiana Glover DO Work Phone: [facility] [place] [facility] Start: 11-12-2023 End: 11-12-2023 Bamboo flowsheet Michele Mario DO Work Phone: [facility] Start: 11-12-2023 End: 11-16-2023 Bamboo flowsheet Michele Mario DO Work Phone: [facility] Start: 11-12-2023 End: 11-16-2023 Clinisync Result Encounter Michele Mario DO Work Phone: [facility] Unsolicited Start: 11-12-2023 End: 11-12-2023 Patient encounter procedure Michele Mario DO Work Phone: [facility] Work Phone: Start: 11-12-2023 End: 11-12-2023 Periodic preventive med est patient 18-39 yrs Michele Mario DO Work Phone: [facility] Comment on above: Yeast infection (Teresa lesvia Dx); Well woman exam with routine gynecological exam Start: 11-12-2023 End: 11-12-2023 ambulatory MICHELE MARIO Not Available Start: 03-20-2023 End: 03-20-2023 ambulatory MICHELE MARIO Not Available Start: 04-22-2022 End: 04-22-[address] BRODY BRANTLEY Facility: Start: 03-20-2022 End: 03-20-2022 ambulatory Rhea Hood Other [facility] Other Start: 03-20-2022 Office outpatient vi sit 15 minutes Rhea Hood [facility] Start: 06-01-2021 End: 06-02-[address] MICHELE MARTIN . Facility: Procedures Date Procedure Procedure Detail Performing Clinician Start: 06-24-2024 Cholecystectomy Yordan Cabrerareyna Start: 11-12-2023 IGP,APTIMA HPV,AGE GDLN Michele Martin DO Work Phone: Plan of Treatment Date Care Activity Detail Author Start: 06-23-2024 Bacteria identified in Urine by Culture Urine Culture [facility] Start: 06-23-2024 Urine culture [facility] Start: 11-12-2023 End: 11-12-2023 Patient encounter procedure 11/12/2023 11:00 AM EDT Office Visit [facility] [address] [place] [id number] Michele Martin, [address] [place] [address] Arrived [facility] Comment on above: Arrived Cytology Cervical or vaginal smear or scraping study Pap Smear Pathology and Cytology Routine Well woman exam with routine gynecological exam Ordered: 11/12/2023 [facility] Work Phone: Comment on above: Ordered: 11/12/2023 Payers Date Payer Category Payer Self-pay [id number] [facility] 2022 Medicaid [employer] [place] [employer] [id number] 2022-Present [address] [place] [address] [id number] 2022 Medicaid [id number] 2002 Unknown [id number] 2002 Unknown [id number] 2002 Unknown [id number] 2002 Unknown [id number] 2002 Unknown [id number] 1959 Unknown [id number] Unknown [id number] Social History Date Type Detail Facility Unknown if ever smoked [facility] Other Start: 10-26-2022 End: 03-16-2023 Sex Assigned At [facility] Start: 01-16-2018 End: 10-26-2022 Tobacco smoking status PRIS Never smoked tobacco [facility] Start: 03-20-2023 End: 11-12-2023 Alcoholic beverage intake Lifetime non-drinker (finding) [facility] Start: 10-26-2022 End: 03-16-2023 History of Social function [facility] Start: 2000 Sex assigned at Not on file [facility] Start: 06-24-2024 End: 06-24-2024 Sex Female (finding) [facility] Start: 2000 Sex Assigned At Female F [facility] Tobacco smoking status [facility] Functional Status Date Assessment Result Facility 06-24-2024 Functional Status N/A [facility] Clinical Notes 03-20-2022 to 06-27-2024 MISHA Nicolas - 11/12/2023 11:00 AM EDT Note Date & Type Note Facility 06-27-2024 Note History and Physical A CUTE CARE SURGERY CONSULT / H&P Patient Name: DOREEN LIU Admission Date: 06/24/2024 Patient seen and examined on 06/24/2024 H ISTORY OF PRESENT ILLNESS DOREEN LIU is a 24 year old female with no significant PMH who presented to [facility] early Sunday morning with epigastric and RUQ abdominal pain. Basic lab work was completed at that time which showed elevations in her LFTs and a CT scan was completed that revealed a distended gallbladder concerning for biliary obstruction/acute cholecystitis. A RUQ ultrasound was then completed which revealed a dilated gallbladder, cholelithiasis and dilated CBC. She left mid morning yesterday but then re-presented to [place] ED later in the day due to persistent, worsening epigastric and RUQ abdominal pain. Repeat lab work was completed which revealed up-trending AST/ALT/ALK Phos and elevated T. Bili. Surgery was contacted at [facility] and it was recommended that patient present for direct admit for surgical intervention. Patient denies any past medical history. 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 Denies prior episodes of abdominal pain like this. Continues to localize pain to the epigastric and RUQ, rating pain 3/10 currently. Denies any nausea or vomiting. PAST MEDICAL HISTORY: Denies PAST SURGICAL HISTORY: Tonisllectomy as a child Podiatric surgery ~ 4 years ago due to webbing of her to PRE-ADMISSION MEDICATIONS: Daily oral contraception ALLERGIES: Allergies (1) Active Severity Reaction No Known Medication Allergies None Documented SOCIAL HISTORY: Social History No active social history has been recorded Psychosocial History No active psychosocial history has been recorded FAMILY HISTORY: No reported family history of bleeding or clotting disorders. Trem[place] [employer] Constitutional: no? fever, no? chills, no? sweats, no? weakness. Skin: no? Jaundice, no? rash, no? lesions, no? petechiae. ENMT: no? ear pain, no? sore throat, no? congestion, no? hoarseness. Respiratory: no? shortness of breath, no? cough, no? orthopnea, no? wheezing. Cardiovascular: no? chest pain, no? palpitations, no? edema. Gastrointestinal: positive for RUQ and epigastric pain, no nausea or vomiting Genitourinary: no? dysuria, no? hematuria, no? discharge, no? pain. Musculoskeletal: no? back pain, no? trauma. Neurologic: no? headache, no? dizziness, no? numbness, no? weakness. Psychiatric: no? sleeping problems, no? irritability, no? mood swings/depression. Heme/Lymph: no? bleeding tendency, no? bruising tendency, no? petechiae, no? swollen lymph nodes Allergy/Immunologic: Seasonal allergies, no? food allergies, no? recurrent infections, no? impaired immunity P HYSICAL EXAM General: Lying on cot with HOB elevated. Appears comfortable, in NAD. HEENT: Normocephalic, atraumatic. Cardiovascular: Regular rate and rhythm. Extremities warm and well perfused Respiratory: Lungs CTA bilaterally. No wheezing, rales or rhonchi. Breathing comfortably on room air. Gastrointestinal: soft?, non distended?, tender to palpation in the RUQ and epigastric regions. No guarding or rebound. Abdomen is non-peritonitic. Extremities: TONG x4. No peripheral edema. Neurological: Awake, alert, oriented x3. TONG x4 with no focal motor or sensory deficits. Psychiatric: cooperative?, affect appropriate for age?, normal? judgement, normal? psychiatric thoughts. Skin: Warm and dry B [facility] WBC 6.2 Hgb: 10.5 Hct: 33.6 Plts: 200 Sodium: 140 Potassium: 3.9 Chloride: 102 CO2: 28.5 BUN: 8 Creatinine: 0.84 T. Bili 2.7 AST 309 ALT 330 Alk Phos: [address] abdomen/pelvis: Gallbladder is distended up to 12 cm in length with calculi or sludge layering in the lumen. Possible biliary ductal dilation with the common bile duct measuring up to 6 mm. Mild prominence of the intrahepatic bile ducts. The background liver parenchyma is normal. RUQ Ultrasound: Distended gallbladder. Cholelithiasis. No wall thickening or pericholecystic fluid. Sonographic Martinez's sign is not reported. No intrahepatic biliary ductal dilation. The common bile duct measures 8.7 cm in diameter which is dilated. EDICAL DECISION MAKING ASSESSMENT/IMPRESSION: Doreen Liu is a 24 year old female with no significant PMH presenting with 1 day history of RUQ and epigastric abdominal pain. Work up at (more content not included)... [facility] Comment on above: Result Comment: Elec tronically Signed By: Doc AMOR, Anu Santos.chun\Date and Time Signed: 06/24/24 08:44 EDT\.br\Electronically Co-Signed By: Lilly OLSON, Yordan Victor.br\Date and Time Co-Signed: 06/27/24 08:21 EDT 06-26-2024 Note Progress Note-[facility] [place] Patient: DOREEN LIU Age: 24 years Sex: Female : 2000 Associated Diagnoses: None Author: Rajesh Sharif Jr, DO Preoperative Information Anesthesia Preop Info: Time patient last ate or drank 06/24/2024 00:00:00. Anesthesia history: Patient history: None. Family history+: None. Informed consent: Signed by patient. Re-evaluation prior to induction: Initial evaluation reviewed: No significant change. Review of Systems Eye: Negative except as documented in history of present illness. Ear/Nose/Mouth/Throat: Negative except as documented in history of present illness. Respiratory: Negative except as documented in history of present illness. Cardiovascular: Negative except as documented in history of present illness. Musculoskeletal: Negative except as documented in history of present illness. Neurologic: Negative except as documented in history of present illness. Health Status Allergies: Allergic Reactions (Selected) No Known Medication Allergies Problem list: No problem items selected or recorded. Histories Procedure history: No active procedure history items have been selected or recorded. Social History Social & Psychosocial Habits No Data Available . Physical Examination Airway: Mallampati classification: II (soft palate, fauces, uvula visible). Respiratory: adequate air exchange. Cardiovascular: Regular rhythm. Plan [place] [employer]esthesi[employer] (ASA) physical status classification: Class II. Anesthetic Preoperative Plan: Anesthesia General, and Patient educated on benefits, alternatives and inherent risk of anesthesia including, but not all inclusive, Allergic reactions, dental damage, nerve damage and cardio-pulmonary complications and wishes to proceed with anesthetic plan.. [facility] Comment on above: Result Comment: Elec tronically Signed By: Rajesh Sharif Jr, DO\.br\Date and Time Signed: 06/26/24 14:40 EDT 06-26-2024 Note Progress Note-[facility] [place] Patient: DOREEN LUI Age: 24 years Sex: Female : 2000 Associated Diagnoses: None Author: Rajesh Sharif Jr, DO Postoperative Information Postoperative disposition: Postoperative disposition: To PACU. Optimetrix number: Optimetrix number [id number]. Anesthetic utilized: General. Health Status Allergies: Allergic Reactions (Selected) No Known Medication Allergies Physical Examination Vital Signs 06/24/2024 16:50 EDT Heart Rate Monitored 59 bpm LOW SpO2 96 % 06/24/2024 16:48 EDT Systolic Blood Pressure 111 mmHg Diastolic Blood Pressure 68 mmHg Blood Pressure Location Left arm Mean Arterial Pressure, Monitered 83 mmHg 06/24/2024 16:48 EDT Temperature Temporal Artery 36.1 DegC LOW 06/24/2024 16:47 EDT Respiratory Rate 16 br/min 06/24/2024 16:36 EDT SpO2 99 % 06/24/2024 16:35 EDT SpO2 99 % 06/24/2024 16:35 EDT Heart Rate Monitored 58 bpm LOW 06/24/2024 16:35 EDT Respiratory Rate Monitored 16 br/min 06/24/2024 16:35 EDT Systolic Blood Pressure 128 mmHg Diastolic Blood Pressure 78 mmHg 06/24/2024 16:35 EDT Temperature Temporal Artery 36.8 DegC Blood Pressure Location Left arm Pain Assessment: Controlled. General: Awake, Alert, Appropriate. Respiratory: Adequate air exchange. Cardiovascular: Stable, Normal peripheral perfusion. Neurological: Normal sensory function, Normal motor function. Assessment Anesthetic outcome No anesthetic complications noted. Adequate pain relief. able to void without difficulty, able to ambulate with assist, tolerating PO intake, no N/V. Review / Management Condition: Stable. Plan Transfer/Discharge: Transfer/Discharge Discharge when meets criteria ( To home ). [facility] Comment on above: Result Comment: Elec tronically Signed By: Rajesh Sharif Jr, DO\.br\Date and Time Signed: 06/26/24 14:40 EDT 06-24-2024 Hospital Discharge instructions Patient Education 06/24/2024 16:20:19 Post Op Patient Instructions - FT (CUSTOM) 06/24/2024 16:16:56 Minimally Invasive Cholecystectomy, Care After, Kbvj-[id number] Minimally Invasive Cholecystectomy, Care After What can I expect after the procedure? After the procedure, it is common to: Have pain at the areas of surgery. You will be given medicines for pain. Vomit or feel like you may vomit. Feel fullness in the belly (bloating) or have pain in the shoulder. This comes from the gas that was used during the surgery. Follow these instructions at home: Medicines Take ybhe-lrj-unwrouh and prescription medicines only as told by your doctor. If you were prescribed an antibiotic medicine, take it as told by your doctor. Do not stop taking it even if you start to feel better. If told, take steps to prevent problems with pooping (constipation). You may need to: ?Drink enough fluid to keep your pee (urine) pale yellow. ?Take medicines. You will be told what medicines to take. ?Eat foods that are high in fiber. These include beans, whole grains, and fresh fruits and vegetables. ?Limit foods that are high in fat and sugar. These include fried or sweet foods. Ask your doctor if you should avoid driving or using machines while you are taking your medicine. Incision care Follow instructions from your doctor about how to take care of your cuts from surgery (incisions). Make sure you: ?Wash your hands with soap and water for at least 20 seconds before and after you change your bandage (dressing). If you cannot use soap and water, use hand car wiper. ?Change your bandage. ?Leave stitches (sutures) or skin glue in place for at least 2 weeks. ?Leave tape strips alone unless you are told to take them off. You may trim the edges of the tape strips if they curl up. Do not take baths, swim, or use a hot tub. Ask your doctor about taking showers or sponge baths. Check your incision area every day for signs of infection. Check for: ?More redness, swelling, or pain. ?Fluid or blood. ?Warmth. ?Pus or a bad smell. Activity Rest as told by your doctor. Do not do activities that require a lot of effort. Get up to take short walks every 1 to 2 hours. Ask for help if you feel weak or unsteady. Do not lift anything that is heavier than 10 lb (4.5 kg), for the next 4-6 weeks Do not play contact sports until your doctor says it is okay. Do not return to work or school until your doctor says it is okay. Return to your normal activities when your doctor says that it is safe. General instructions If you were given a sedative during your procedure, do not drive or use machines until your doctor says that it is safe. A sedative is a medicine that helps you relax. Keep all follow-up visits. Contact a doctor/come in to the ER if: You get a rash. You have more redness, swelling, or pain around your incisions. You have fluid or blood coming from your incisions. Your incisions feel warm to the touch. You have pus or a bad smell coming from your incisions. You have a fever. One or more of your incisions breaks open. - You are unable to urinate within 8 hours of being home Get help right away if: You have trouble breathing. You have chest pain. You have pain that is getting worse in your shoulders. You faint or feel dizzy when you stand. You have very bad pain in your belly (abdomen). You feel like you may vomit or you vomit, and this lasts for more than one day. You have leg pain. These symptoms may be an emergency. Get help right away. Call 911. Do not wait to see if the symptoms will go away. Do not drive yourself to the hospital. Summary After your surgery, it is common to have pain at the areas of surgery. You may also vomit or feel fullness in the belly. Follow your doctor's instructions about medicine, activity restrictions, and caring for your surgery areas. Do not do activities that require a lot of effort. Contact a doctor if you have a fever or other signs of infection, such as more redness, swelling, or pain around your incisions. Get help right away if you have chest pain, increasing pain in the shoulders, or trouble breathing. This information is not intended to replace advice given to you by your health care provider. Make sure you discuss any questions you have with your health care provider. Document Revised: 08/16/2021 Document Reviewed: 08/16/2021 [employer] Patient Education 2023 [employer] 06/24/2024 16:16:56 Acute Pain, Adult Acute Pain, Adult Acute pain is a type of sudden pain that may last for just a few days or for as long as three months. It is often related to an illness, injury, or a medical procedure. Acute pain may be mild, moderate, or severe. Pain can make it hard for you to do your daily activities. It can cause anxiety and lead to other problems if it is not treated. Treatment may not take all the pain away, but it may lessen the pain so you can move around and tolerate it. Pain is best treated with medicines and other therapies such as distraction, meditation, oils from plants (aromatherapy), heat, and ice. Treatment depends on the cause of the pain and how severe it is. Acute pain usually goes away once your injury has healed or you are no longer ill. Follow these instructions at home: Medicines Take zrto-bky-awmjsva and prescription medicines only as told by your health care provider. Take one tablet of tylenol every 6 hours for the first few days. Alternate with ibuprofen every 6 hours. Only take oxycodone as needed for pain not controlled on tylenol and ibuprofen. Take the lowest dose of medicine for the shortest amount of time needed to relieve the pain. If you are taking prescription pain medicine: ?Do not stop taking the medicine suddenly. Talk to your health care provider about how and when to stop taking prescription medicine. ?Do not take more pills than told by your health care provider even if your pain is severe. ?Do not take other tslm-nbu-akqudvo pain medicines in addition to prescription pain medicine unless told by your health care provider. ?Keep your medicine in a safe place, away from children or anyone who could use it in a way that it was not prescribed. ?Ask your health care provider if the medicine prescribed to you requires you to avoid driving or using machinery. - Do not drive while taking oxycodone. You should be off oxycodone for 24 hours before returning to driving/operating heavy machinery Managing pain, stiffness, and swelling If told, put ice on the affected area. ?Put ice in a plastic bag. ?Place a towel between your skin and the bag. ?Leave the ice on for 20 minutes, 2 3 times a day. If told, apply heat to the affected area as often as told by your health care provider. Use the heat source that your health care provider recommends, such as a moist heat pack or a heating pad. ?Place a towel between your skin and the heat source. ?Leave the heat on for 20 30 minutes. If your skin turns bright red, remove the ice or heat right away to prevent skin damage. The risk of damage is higher if you cannot feel pain, heat, or cold. Managing constipation Your medicines may cause constipation. To prevent or treat constipation, you may need to: Drink enough fluid to keep your urine pale yellow. Take shxe-meb-agcrhqg or prescription medicines. Eat foods that are high in fiber, such as beans, whole grains, and fresh fruits and vegetables. Limit foods that are high in fat and processed sugars, such as fried or sweet foods. Activity Rest as told by your health care provider. Return to your normal activities as told by your health care provider. Ask your health care provider what activities are safe for you. Ask your health care provider if doing physical therapy exercises to improve movement and strength can help you manage your pain. General instructions Check your pain level as told by your health care provider. Ask your health care provider if distraction, relaxation, or aromatherapy can help you manage your pain. Keep all follow-up visits. Your health care provider will monitor your pain level. Contact a health care provider if: Your pain is not controlled by medicine. Your pain does not improve or gets worse. You have side effects from pain medicines. Get help right away if: You have severe pain. You have trouble breathing. You faint, or another person sees you faint. You have chest pain or pressure that lasts for more than a few minutes, or if you have other symptoms along with chest pain, including: ?Pain or discomfort in one or both arms, your back, neck, jaw, or stomach. ?Shortness of breath. ?A cold sweat. ?Nausea. ?Feeling light-headed. These symptoms may be an emergency. Get help right away. Call 911. Do not wait to see if the symptoms will go away. Do not drive yourself to the hospital. This information is not intended to replace advice given to you by your health care provider. Make sure you discuss any questions you have with your health care provider. Document Revised: 09/06/2022 Document Reviewed: 09/06/2022 [employer] Patient Education 2023 [employer] 06/24/2024 16:02:03 Cholelithiasis, Sclp-vd-Fdrm Cholelithiasis Cholelithiasis happens when gallstones form in the gallbladder. The gallbladder stores bile. Bile is a fluid that helps digest fats. Bile can harden and form into gallstones. If they cause a blockage, they can cause pain (gallbladder attack). What are the causes? This condition may be caused by: Too much bilirubin in the bile. This happens if you have sickle cell anemia. Too much of a fat-like substance (cholesterol) in your bile. Not enough bile salts in your bile. These salts help the body absorb and digest fats. The gallbladder not emptying fully or often enough. This is common in women. What increases the risk? The following factors may make you more likely to develop this condition: Being older than age 40. Eating a lot of fried foods, fat, and refined carbs (refined carbohydrates). Being female. Being many times. Using medicines with female hormones in them for a long time. Losing weight fast. Having gallstones in your family. Having health problems, such as diabetes, obesity, Crohn's disease, or liver disease. What are the signs or symptoms? Often, there may be gallstones but no symptoms. These gallstones are called silent gallstones. If a gallstone causes a blockage, you may get sudden pain. The pain: Can be in the upper right part of your belly (abdomen). Normally comes at night or after you eat. Can last an hour or more. Can spread to your right shoulder, back, or chest. Can feel like discomfort, burning, or fullness in the upper part of your belly (indigestion). If the blockage lasts more than a few hours, you can get an infection or swelling. You may: Vomit or feel like you may vomit (nauseous). Feel bloated. Have belly pain for 5 hours or more. Feel tender in your belly, often in the upper right part and under your ribs. Have a fever or chills. Have skin or the white parts of your eyes turn yellow (jaundice). Have dark pee (urine) or pale poop (stool). How is this treated? Treatment for this condition depends on how bad you feel. If you have symptoms, you may need: Home care, if symptoms are not very bad. ?Do not eat for 12 24 hours. Drink only water and clear liquids. ?After 1 or 2 days, start to eat simple or clear foods. Try broth and crackers. ?You may need medicines for pain or stomach upset or both. ?If you have an infection, you will need antibiotics. A hospital stay, if you have very bad pain or a very bad infection. Surgery to remove your gallbladder. You may need this if: ?Gallstones keep coming back. ?You have very bad symptoms. Medicines to break up gallstones. Medicines may be used for 6 12 months. A procedure to find and take out gallstones or to break up gallstones. Follow these instructions at home: Medicines Take lmyk-noo-gjutpbp and prescription medicines only as told by your doctor. If you were prescribed antibiotics, take them as told by your doctor. Do not stop taking them even if you start to feel better. Ask your doctor if you should avoid driving or using machines while you are taking your medicine. Eating and drinking Drink enough fluid to keep your pee pale yellow. Drink water or clear fluids. This is important when you have pain. Eat healthy foods. Choose: ?Fewer fatty foods, such as fried foods. ?Fewer refined carbs. Avoid breads and grains that are highly processed, such as white bread and white rice. Choose whole grains, such as whole-wheat bread and brown rice. ?More fiber. Almonds, fresh fruit, and beans are healthy sources. General instructions Keep a healthy weight. Keep all follow-up visits. You may need to see a specialist or a surgeon. Where to find more information National [place] of Diabetes and Digestive and Kidney Diseases: niddk.nih.gov Contact a doctor if: You have sudden pain in the upper right part of your belly. Pain might spread to your right shoulder, back, or chest. Your pain lasts more than 2 hours. You have been diagnosed with gallstones that have no symptoms and you get: ?Belly pain. ?Discomfort, burning, or fullness in the upper part of your abdomen. You keep feeling like you may vomit. You have dark pee or pale poop. Get help right away if: You have pain in your abdomen, that: ?Lasts more than 5 hours. ?Keeps getting worse. You have a fever or chills. You can't stop vomiting. Your skin or the white parts of your eyes turn yellow. This information is not intended to replace advice given to you by your health care provider. Make sure you discuss any questions you have with your health care provider. Document Revised: 11/27/2022 Document Reviewed: 11/27/2022 [employer] Patient Education 2023 [email or web address]. Follow Up Care 06/24/2024 06:25:17 With:[facility] Address: [address] [address], [address] [place], [place] [address]- [phone] When:1 to 2 weeks Comments:Please call to make follow up appointment. [facility] 06-24-2024 Note Patient Education - Text Gastroenterology Minimally Invasive Cholecystectomy, Care After What can I expect after the procedure? After the procedure, it is common to: ??? Have pain at the areas of surgery. You will be given medicines for pain. ??? Vomit or feel like you may vomit. ??? Feel fullness in the belly (bloating) or have pain in the shoulder. This comes from the gas that was used during the surgery. Follow these instructions at home: Medicines ??? Take qvqe-oat-pmzjdcq and prescription medicines only as told by your doctor. ??? If you were prescribed an antibiotic medicine, take it as told by your doctor. Do not stop taking it even if you start to feel better. ??? If told, take steps to prevent problems with pooping (constipation). You may need to: ? Drink enough fluid to keep your pee (urine) pale yellow. ? Take medicines. You will be told what medicines to take. ? Eat foods that are high in fiber. These include beans, whole grains, and fresh fruits and vegetables. ? Limit foods that are high in fat and sugar. These include fried or sweet foods. ??? Ask your doctor if you should avoid driving or using machines while you are taking your medicine. Incision care ??? Follow instructions from your doctor about how to take care of your cuts from surgery (incisions). Make sure you: ? Wash your hands with soap and water for at least 20 seconds before and after you change your bandage (dressing). If you cannot use soap and water, use hand car wiper. ? Change your bandage. ? Leave stitches (sutures) or skin glue in place for at least 2 weeks. ? Leave tape strips alone unless you are told to take them off. You may trim the edges of the tape strips if they curl up. ??? Do not take baths, swim, or use a hot tub. Ask your doctor about taking showers or sponge baths. ??? Check your incision area every day for signs of infection. Check for: ? More redness, swelling, or pain. ? Fluid or blood. ? Warmth. ? Pus or a bad smell. Activity ??? Rest as told by your doctor. Do not do activities that require a lot of effort. ??? Get up to take short walks every 1 to 2 hours. Ask for help if you feel weak or unsteady. ??? Do not lift anything that is heavier than 10 lb (4.5 kg), for the next 4-6 weeks ??? Do not play contact sports until your doctor says it is okay. ??? Do not return to work or school until your doctor says it is okay. ??? Return to your normal activities when your doctor says that it is safe. General instructions ??? If you were given a sedative during your procedure, do not drive or use machines until your doctor says that it is safe. A sedative is a medicine that helps you relax. ??? Keep all follow-up visits. Contact a doctor/come in to the ER if: ??? You get a rash. ??? You have more redness, swelling, or pain around your incisions. ??? You have fluid or blood coming from your incisions. ??? Your incisions feel warm to the touch. ??? You have pus or a bad smell coming from your incisions. ??? You have a fever. ??? One or more of your incisions breaks open. - You are unable to urinate within 8 hours of being home Get help right away if: ??? You have trouble breathing. ??? You have chest pain. ??? You have pain that is getting worse in your shoulders. ??? You faint or feel dizzy when you stand. ??? You have very bad pain in your belly (abdomen). ??? You feel like you may vomit or you vomit, and this lasts for more than one day. ??? You have leg pain. These symptoms may be an emergency. Get help right away. Call 911. ??? Do not wait to see if the symptoms will go away. ??? Do not drive yourself to the hospital. Summary ??? After your surgery, it is common to have pain at the areas of surgery. You may also vomit or feel fullness in the belly. ??? Follow your doctor's instructions about medicine, activity restrictions, and caring for your surgery areas. Do not do activities that require a lot of effort. ??? Contact a doctor if you have a fever or other signs of infection, such as more redness, swelling, or pain around your incisions. ??? Get help right away if you have chest pain, increasing pain in the shoulders, or trouble breathing. This information is not intended to replace advice given to you by your health care provider. Make sure you discuss any questions you have with your health care provider. Document Revised: 08/16/2021 Document Reviewed: 08/16/2021 [employer] Patient Education ??? 2023 [email or web address]. Cholelithiasis Cholelithiasis happens when gallstones form in the gallbladder. The gallbladder stores bile. Bile is a fluid that helps digest fats. Bile can harden and form into gallstones. If they cause a blockage, they can cause pain (gallbladder attack). What are the causes? This condition may be caused by: ??? (more content not included)... [facility] 06-24-2024 Note Progress Note-Giuliana figueroa Patient: DOREEN LIU Age: 24 years Sex: Female : 2000 Associated Diagnoses: None Author: Rajesh Patel MD Preoperative Information Anesthesia Preop Info: Time patient last ate or drank 07/31/2023 00:00:00. Anesthesia history: Patient history: None. Family history+: None. Informed consent: Signed by patient. Re-evaluation prior to induction: Initial evaluation reviewed: No significant change. Review of Systems Eye: Negative except as documented in history of present illness. Ear/Nose/Mouth/Throat: Negative except as documented in history of present illness. Respiratory: Negative except as documented in history of present illness. Cardiovascular: Negative except as documented in history of present illness. Musculoskeletal: Negative except as documented in history of present illness. Neurologic: Negative except as documented in history of present illness. Health Status Allergies: Allergic Reactions (Selected) No Known Medication Allergies, Allergies (1) Active Severity Reaction No Known Medication Allergies None Documented Current medications: (Selected) Inpatient Medications Ordered Sodium Chloride 0.9% IV Isabel 1000 mL 1,000 mL: 1,000 mL, IV, 150 mL/hr, Routine, Start date 06/24/24 7:27:00 EDT, 6.7 hour(s), Total volume (mL): 1,000 cefazolin additive + Sodium Chloride 0.9% intravenous solution 50 mL: 2 gm = 1 EA, Powder-Inj, IV Piggyback, PREOP, Routine, Start date 06/24/24 8:08:00 EDT, 100 mL/hr, Infuse over 30 minute(s) Documented Medications Documented Misc Prescription: , Home Medications (1) Active Misc Prescription 0 , Medications (2) Active Scheduled: (1) ceFAZolin + Sodium Chloride 0.9% Minibag 50 mL 2 gm 1 EA, IV Piggyback, PREOP Continuous: (1) Sodium Chloride 0.9% 1,000 mL 1,000 mL, IV, 150 mL/hr PRN: (0) Problem list: No problem items selected or recorded., No qualifying data available Histories Past Medical History: No active or resolved past medical history items have been selected or recorded. Family History: No family history items have been selected or recorded. Procedure history: No active procedure history items have been selected or recorded. Social History Social & Psychosocial Habits No Data Available . Physical Examination Vital Signs 06/24/2024 7:44 EDT Heart Rate Monitored 48 bpm LOW Systolic Blood Pressure 106 mmHg Diastolic Blood Pressure 67 mmHg Blood Pressure Location Left arm Mean Arterial Pressure, Monitered 80 mmHg 06/24/2024 7:44 EDT Heart Rate Monitored 53 bpm LOW SpO2 100 % 06/24/2024 7:43 EDT Respiratory Rate 16 br/min 06/24/2024 7:43 EDT Temperature Axillary 36.4 DegC 06/24/2024 7:42 EDT Systolic Blood Pressure 110 mmHg Diastolic Blood Pressure 67 mmHg Blood Pressure Location Right arm Mean Arterial Pressure, Monitered 81 mmHg Vital Signs (last 24 hrs) Last Charted Temp Axillary 36.4 DegC (JUN 24 07:43) Heart Rate Monitored L 48 bpm (JUN 24 07:44) SBP 106 mmHg (JUN 24 07:44) DBP 67 mmHg (JUN 24 07:44) Weight 84.9 kg (JUN 24 07:24) BMI 29.03 (JUN 24 07:24) Measurements from flowsheet : Measurements 06/24/2024 7:24 EDT Height/Length Measured 171 cm Height/Length Dosing 171.0 cm Weight Dosing 84.9 kg BSA Measured 2.01 m2 Body Mass Index Measured 29.03 kg/m2 Weight Measured 84.9 kg Airway: Mallampati classification: II (soft palate, fauces, uvula visible). Respiratory: adequate air exchange. Cardiovascular: Regular rhythm. Review / Management Results review: No qualifying data available . Plan [place] [employer] Anesthesiologists (ASA) physical status classification: Class III. Anesthetic Preoperative Plan: Anesthesia General. [facility] Comment on above: Result Comment: Elec tronically Signed By: Rajesh Patel MD incomplete 11-12-2023 History of Present illness Narrative Reason for Appointment: Patient ID: Doreen Liu is a 23 y.o. female who presents for Well Women Visit Patient presents today for Annual Exam. MEDICATIONS Current Outpatient Medications Medication Instructions drospirenone-ethinyl estradiol (Ocella) 3-0.03 MG tablet 1 tablet, Oral, Every 24 hours ALLERGIES No Known Allergies PROBLEMS Active Ambulatory Problems Diagnosis Date Noted No Active Ambulatory Problems Resolved Ambulatory Problems Diagnosis Date Noted No Resolved Ambulatory Problems Past Medical History: Diagnosis Date ADHD (attention deficit hyperactivity disorder) (CMS/HCC) Anxiety Depression (CMS/HCC) PCOS (polycystic ovarian syndrome) Webbed toes HISTORY PAST MEDICAL HISTORY SOCIAL HISTORY Past Medical History: Diagnosis Date ADHD (attention deficit hyperactivity disorder) (CMS/HCC) Anxiety Depression (CMS/HCC) PCOS (polycystic ovarian syndrome) Webbed toes Social History Tobacco Use Smoking status: Never Smokeless tobacco: Not on file Substance Use Topics Alcohol use: Never Drug use: Never FAMILY HISTORY Family History Problem Relation Name Age of Onset Stroke Mother Lucie liu Stroke Father Pawel liu Diabetes Father Pawel rosedrausten Hypertension Father Pawel rosedro Heart disease Father Pawel rosedrausten SURGICAL HISTORY Past Surgical History: Procedure Laterality Date FOOT SURGERY Bilateral 2020 had webs removed TONSILLECTOMY 2007 REVIEW OF SYSTEMS Review of Systems: Review of Systems Constitutional: Negative. HENT: Negative. Eyes: Negative. Respiratory: Negative. Cardiovascular: Negative. Gastrointestinal: Negative. Genitourinary: Negative. Musculoskeletal: Negative. Skin: Negative. Neurological: Negative. All other systems reviewed and are negative. Hematological: Negative. Endocrine: Negative. Allergic/Immunologic: Negative. OBJECTIVE Objective: Physical Exam Constitutional: Appearance: Normal appearance. Genitourinary: Right Adnexa: not tender and no mass present. Left Adnexa: not tender and no mass present. No cervical discharge. Breasts: Breasts are soft. Right: Normal. Left: Normal. HENT: Head: Normocephalic. Nose: Nose normal. Mouth/Throat: Mouth: Mucous membranes are moist. Cardiovascular: Rate and Rhythm: Normal rate. Pulmonary: Effort: Pulmonary effort is normal. Abdominal: General: Bowel sounds are normal. Palpations: Abdomen is soft. Musculoskeletal: General: Normal range of motion. Cervical back: Normal range of motion. Neurological: General: No focal deficit present. Mental Status: She is alert. Skin: General: Skin is warm and dry. Psychiatric: Mood and Affect: Mood normal. Vitals and nursing note reviewed. Exam conducted with a photographic developer and printer present. Vitals: Estimated body mass index is 28.25 kg/m as calculated from the following: Height as of this encounter: 5' 6 . Weight as of this encounter: 175 lb. BP: 112/72 Patient's last menstrual period was 10/15/2023. ASSESSMENT & PLAN ICD-10-CM 1. Well woman exam with routine gynecological exam Z01.419 Pap Smear Annual Exam: Patient presents today for an annual exam. Patient states she is doing well and has no complaints. Pap was obtained without difficulty. No orders of the defined types were placed in this encounter. Follow Up: Patient is to return in one year for annual unless needed otherwise. Documented by MISHA Nicolas on behalf of: Michele Martin DO documented in this encounter [facility] 03-20-2022 Evaluation note Encounter Date Diagnosis Assessment Notes Feb, Impacted cerumen, left ear (ICD-10 - H61.22) Ear wax removal completed in office today. Recommend Debrox ear drops as directed in box to prevent future impaction as well as refraining from using Q-tips or other objects to clear out ears. Follow up with PCP or ENT if no improvement of symptoms or symptom return [employer] Other Evaluation + Plan note No data available for this section [facility] Evaluation note* Diagnosis Yeast infection- Primary Well woman exam with routine gynecological exam Routine gynecological examination documented in this encounter [facility]No assessment information [facility]Prov[facility] Work Phone: History general Narrative - Reported* Type Description Date Medical History Scoliosis Medical History ADHD Surgical History tonsillectomy and adenoidectomy Surgical History Foot Surgery b/l [employer] Other Progress note No data available for this section [facility] Summary Purpose Family History No Family History Records Found Relationship Condition Age at Onset Recorded Date/T ivory father Hypertension Unknown Advance Directives No Advanced Directives Records Found Advance Directive Response Recorded Date/ Time Advance Directives No December 10:50am Additional Source Comments INFORMATION SOURCE (unrecogn ized section and content) DATE CREATED AUTHOR 04/26/2022 [facility] DATE CREATED AUTHOR AUTHOR'S ORGANIZ ATION 11/13/2023 [facility] EPIC DATE CREATED AUTHOR AUTHOR'S ORGANIZ ATION 06/25/2024 [facility] DATE CREATED AUTHOR AUTHOR'S ORGANIZ ATION 06/30/2024 [facility] DATE CREATED AUTHOR AUTHOR'S ORGANIZ ATION 07/02/2024 [facility] REASON FOR VISIT (unrecogniz ed section and content) Reason Comments Well Women Visit Care Teams (unrecognized sec tion and content) Alarm Field Technician Relationship Specialty Start Date End Date Zoltan Moseley MD [address] [place] [address] PCP - General Family Medicine 11/07/22 Alarm Field Technician Relationship Specialty Start Date End Date Zoltan Moseley MD [address] [place] [address] PCP - General Family Medicine 11/07/22 Alarm Field Technician Relationship Specialty Start Date End Date Zoltan Moseley MD [address] [id number] PCP - General Family Medicine 11/07/22 Team Status: Inactive Member Role Status Dates Viridiananoemi Tanner DO [place] Attending Provider Active Start: June 23, 2024 End: June 23, 2024 Goals (unrecognized section and content) Goals may be documented in a n alternate section FOR RECORDS PERTAINING TO PATIENTS WHO ARE [...] BE BASED ON THE PRIMARY CLINICAL RECORDS. [employer] provides no warranty or guarantee of the accuracy or completeness of information in this document.
[2024-12-08 22:40] VITALS: BP 121/90; PULSE 83; TEMP 36.6; O2SAT 100; BMI 33.1
--- NOTE | 2024-12-08 23:01 | ED.ABDPAIN1 ---
HPI - Abdominal Pain General Chief Complaint: Abdominal Pain Time Seen by Provider: 12/08/24 22:43 Source: patient Mode of arrival: walk-in Limitations: no limitations History of Present Illness HPI narrative: This 24-year-old female who is status postcholecystectomy presents for evaluation of intermittent left upper quadrant abdominal pain. Pain has been present for the past 2 weeks intermittently. Is mostly sharp and stabbing and sometimes dull and aching. She states that she had chili to eat today and the symptoms flared up. It does not radiate into her chest or back. She is not having any nausea vomiting or diarrhea. She denies the possibility of . She is not having any urinary symptoms. She has no chest pain or shortness of breath. She has not had any fever. She drinks alcohol on rare occasions. Related Data Allergies Allergy/AdvReac Type Severity Reaction Status Date / Time No Known Drug Allergies Allergy Verified 12/08/24 22:48 Review of Systems ROS Status of ROS 10 or more systems reviewed and unremarkable except as noted in history and below PFSH [facility] Medical History (Updated 12/09/24 @ 00:28 by Viridiana Glover MD) Anxiety ?F41.9 - Anxiety disorder, unspecified (ICD-10) Surgical History (Updated 10/11/23 @ 21:00 by Brain Cruz) History of tonsillectomy and adenoidectomy ?Z90.89 - Acquired absence of other organs (ICD-10) Social History Smoking status: Current every day smoker Little interest or pleasure in doing things: not at all Feeling down, depressed, or hopeless: not at all Exam Narrative Exam Narrative: Vital signs and Nursing Notes reviewed: Patient is afebrile with normal pulse, normal blood pressure, she is not hypoxic with pulse ox of 100% on room air General: Awake, alert, oriented, no acute distress, lying comfortably on the stretcher HEENT: Normocephalic atraumatic, mucous membranes are moist and pink, eyes are clear, normal conjunctiva, vision is grossly intact, no scleral icterus Chest: Lungs are clear to auscultation with good air entry, there is no wheezing rhonchi or rales appreciated no accessory muscle use, patient is speaking in complete sentences-no chest wall tenderness to palpation CVS: Regular rate and rhythm S1-S2, no murmurs rubs or gallops, pulses are brisk and equal bilaterally ABD: Soft, nondistended, nontender, no rebound guarding or rigidity, no reproducible tenderness in the right upper quadrant, epigastrium or left upper quadrant, abdomen is otherwise soft with normal bowel sounds Extremities: Moving all extremities, no lower extremity tenderness or swelling noted, negative Homans' sign, pulses are brisk and equal bilaterally Skin: Normal in appearance without rash,pallor, petechiae or purpura Neuro: No focal deficits Constitutional Vital Signs, click to edit/add: Last Vital Signs Temp 97.9 F 12/08/24 22:40 Pulse 83 12/08/24 22:40 Resp 18 12/08/24 22:40 BP 121/90 12/08/24 22:40 Pulse Ox 100 12/08/24 22:40 O2 Del Method Room Air 12/08/24 22:40 Course Vital Signs Vital signs: Vital Signs Temperature 97.9 F 12/08/24 22:40 Pulse Rate 83 12/08/24 22:40 Respiratory Rate 18 12/08/24 22:40 Blood Pressure 121/90 12/08/24 22:40 Pulse Oximetry 100 12/08/24 22:40 Oxygen Delivery Method Room Air 12/08/24 22:40 Temperature 97.9 F 12/08/24 22:40 Pulse Rate 83 12/08/24 22:40 Respiratory Rate 18 12/08/24 22:40 Blood Pressure 121/90 12/08/24 22:40 Pulse Oximetry 100 12/08/24 22:40 Oxygen Delivery Method Room Air 12/08/24 22:40 MDM - Abdominal Pain MDM Narrative Medical decision making narrative: This 24-year-old female who is status post cholecystectomy presents for evaluation of intermittent left upper quadrant abdominal pain for the past several weeks. The pain is intermittently sharp and stabbing or dull and aching. She has not had any fevers or chills. She has not had any weight loss. She denies any nausea vomiting or diarrhea. She has been using ibuprofen for the pain. She denies the possibility of . She denies any pleuritic pain, chest pain or shortness of breath. She had no reproducible tenderness on her physical exam. An IV was placed and she was medicated with Toradol with clinical improvement in her pain and routine labs were ordered. She has a normal white count and hemoglobin. Electrolytes are normal. Liver function tests are normal. Lipase is normal. Her urine was negative for infection and her test was negative. Abdominal series x-ray was ordered which is a nonspecific bowel gas pattern with no free air, normal amount of stool appreciated without signs of constipation and the chest x-ray portion did not show any acute infiltrate, effusion with normal cardiac borders and mediastinum. On reevaluation she is feeling better. I explained to her that she may be having some degree of bowel spasm or gastritis due to the fact that her symptoms today became worse after eating chili. She was encouraged to follow-up mild bland diet for the next several weeks and will be discharged home with a prescription for Pepcid and Bentyl. Lab Data Labs: Lab Results 12/08/24 12/08/24 Range/Units 23:19 23:25 WBC 8.5 (4.0-11.0) 10^3/uL RBC 5.02 (4.20-5.40) 10^6/uL Hgb 12.1 (12.0-16.0) g/dL Hct 38.0 (36.0-48.0) % MCV 75.7 L (81.0-99.0) fL MCH 24.1 L (26.7-34.0) pg MCHC 31.8 (29.9-35.2) g/dL RDW 15.9 H (11.0-15.0) % Plt Count 189 (150-450) 10^3/uL MPV 11.3 (9.5-13.5) fL Neut % (Auto) 54.7 (43.0-75.0) % Lymph % (Auto) 35.2 (20.5-60.0) % Millard % (Auto) 6.6 (1.7-12.0) % Eos % (Auto) 2.9 (0.9-7.0) % Baso % (Auto) 0.5 (0.2-2.0) % Neut # (Auto) 4.7 (1.4-6.5) 10^3/uL Lymph # (Auto) 3.0 (1.2-3.8) 10^3/uL Millard # (Auto) 0.6 (0.3-0.8) 10^3/uL Eos # (Auto) 0.3 (0.0-0.7) 10^3/uL Baso # (Auto) 0.0 (0.0-0.1) 10^3/uL Abs Immat Gran (auto) 0.01 (0.00-0.03) 10^3/uL Imm/Tot Granulo (auto) 0.1 (0.0-0.5) % Sodium 143 (136-145) mmol/L Potassium 3.5 (3.5-5.1) mmol/L Chloride 105 (98-107) mmol/L Carbon Dioxide 27.0 (21.0-32.0) mmol/L Anion Gap 14.5 BUN 9.0 (7.0-18.0) mg/dL Creatinine 0.67 (0.55-1.02) mg/dL Est GFR ( Amer) >60 (>=60 mL/min/1.73m^2) Est GFR (Non-Af Amer) >60 (>=60 mL/min/1.73m^2) BUN/Creatinine Ratio 13.4 Glucose 88 (74-106) mg/dL Calcium 9.3 (8.5-10.1) mg/dL Total Bilirubin 0.3 (0.2-1.0) mg/dL AST 16 (15-37) U/L ALT 27 (14-59) U/L Alkaline Phosphatase 79 (46-116) U/L Total Protein 7.9 (6.4-8.2) g/dL Albumin 4.1 (3.4-5.0) g/dL Globulin 3.8 g/dL Albumin/Globulin Ratio 1.1 Lipase 29.0 (16.0-77.0) U/L Urine Color Yellow (YELLOW) Urine Clarity Clear (CLEAR) Urine pH 6.5 (5.0-9.0) Ur Specific [place] 1.015 (1.005-1.025) Urine Protein Negative (NEG/TRACE) mg/dL Urine Glucose (UA) Negative (NEGATIVE) mg/dL Urine Ketones Negative (NEGATIVE) mg/dL Urine Occult Blood Negative (NEGATIVE) Urine Nitrite Negative (NEGATIVE) Urine Bilirubin Negative (NEGATIVE) Urine Urobilinogen 0.2 (0.2-1.0) EU/dL Ur Leukocyte Esterase Negative (NEGATIVE) Urine RBC None seen (0-2) #/HPF Urine WBC None seen (NONE SEEN) #/HPF Ur Squamous Epith Cells Rare (NONE/RARE) #/LPF Urine Crystals Seen A (None Seen) #/HPF Amorphous Sediment Few Urine Bacteria None seen (NONE SEEN) #/HPF Urine Casts None seen (NONE SEEN) #/LPF Urine Mucus None seen (NONE SEEN) Ur Culture Indicated? No Urine HCG, Qual Negative (NEGATIVE) Discharge Plan Discharge Chief Complaint: Abdominal Pain Clinical Impression: Abdominal pain, LUQ Patient Disposition: Home, Self-Care Time of Disposition Decision: 00:27 Condition: Good Print Language: Kuwaiti Instructions: Abdominal Pain (ED) Referrals: [facility]SE[facility] [Primary Care Provider, Family Practice] - 1 week
[2024-12-08 23:34] LABS: Hematocrit 38.0 % (36.0-48.0); Hemoglobin 12.1 g/dL (12.0-16.0); Immature Granulocytes Abs Auto 0.01 10^3/uL (0.00-0.03); Immature Granulocytes Pct Auto 0.1 % (0.0-0.5); Lymphocytes Absolute Auto 3.0 10^3/uL (1.2-3.8); Mean Corpuscular HGB Conc 31.8 g/dL (29.9-35.2); Mean Corpuscular Hemoglobin 24.1 pg (26.7-34.0); Mean Corpuscular Volume 75.7 fL (81.0-99.0); Platelet Count 189 10^3/uL (150-450); Red Blood Count 5.02 10^6/uL (4.20-5.40); White Blood Count 8.5 10^3/uL (4.0-11.0)
[2024-12-08 23:35] LABS: Glucose Urine UA NEGATIVE (NEGATIVE)
[2024-12-08 23:36] LABS: HCG Qualitative Urine* NEGATIVE (NEGATIVE)
[2024-12-08] MEDS: KETOROLAC TROMETHAMINE 30 MG/ML VIAL IM (23:36)
[2024-12-08 23:41] LABS: Cast Seen? NONE SEEN #/LPF (NONE SEEN); Crystals Seen? Seen #/HPF (None Seen); Urine Culture Indicated NO
[2024-12-08 23:54] LABS: Alanine Aminotransferase 27 U/L (14-59); Albumin Globulin Ratio 1.1; Albumin Level 4.1 g/dL (3.4-5.0); Alkaline Phosphatase 79 U/L (46-116); Anion Gap 14.5; Aspartate Amino Transferase 16 U/L (15-37); Blood Urea Nitrogen 9.0 mg/dL (7.0-18.0); Calcium 9.3 mg/dL (8.5-10.1); Carbon Dioxide 27.0 mmol/L (21.0-32.0); Chloride 105 mmol/L (98-107); Estimated GFR (African America >60 (>=60 mL/min/1.73m^2); Estimated GFR (Non-African Ame >60 (>=60 mL/min/1.73m^2); Globulin 3.8 g/dL; Glucose 88 mg/dL (74-106); Lipase 29.0 U/L (16.0-77.0); Potassium 3.5 mmol/L (3.5-5.1); Sodium 143 mmol/L (136-145); Total Protein 7.9 g/dL (6.4-8.2)
--- NOTE | 2024-12-08 23:57 | XR_ITS ---
[facility] [place] [id number] Patient Name: HALLE MARTINS MRN: [id number] date: 2000 Sex: F Assigned Patient Location: ED.MAIN Current Patient Location: ED.MAIN Accession/Order Number: [id number] Exam Date: 12/08/2024 23:59 Report Date: 12/09/2024 07:58 At the request of: ABDIRAHMAN VOGEL MD Procedure: XR acute abdomen series ACUTE ABDOMEN SERIES WITH PA CHEST: CLINICAL HISTORY: LUQ abd pain x 2 weeks COMPARISON: CT 06/23/2024 The chest film shows no acute cardiopulmonary findings. Supine and upright views of the abdomen and pelvis show small amount of air within the stomach. There is air and mild and stool along the colon, greater on the right. There is no small bowel dilatation, free air or air-fluid levels. No soft tissue masses or suspect renal calculi are seen. There are pelvic phleboliths. A tampon is present within the vagina. The bony structures are intact. There are hemostasis clips at the right upper quadrant. XR/XR acute abdomen series IMPRESSION: NO ACUTE PLAIN FILM FINDINGS. Impression dictated by: Jaymie Sanhcez M.D. 12/09/2024 7:58 AM Dictation Location: [place] [id number] Electronically authenticated by: [id number] Y Date: 12/09/2024 07:58
== END 2024-12-09 00:45 | disposition home or self-care (01) ==
PROVIDERS: Emergency Provider Emergency Medicine; PCP Family Medicine
DX: R10.12 Left upper quadrant pain (principal)
CPT/HCPCS: 36415; 74022; 80053; 81001; 83690; 84703; 85025; 96372; 99284; J1885